=== PATIENT | female | born 1930 | race Caucasian/White ===

== ENCOUNTER 2017-12-11 21:14 | Emergency (ER) | payer MEDICARE, OTHER ==
[~2017-12-11] VITALS: Ht 165.1 cm; Wt 49.9 kg
[~2017-12-11 21:14] MED LIST: ACETAMINOPHEN325 M1 PO; ALEVE220 MG PO; AMLODIPINE BESYL5 MG PO; ANUSOL-HC25 MG PR; ASPIR 8181 MG PO; COZAAR25 MG PO; KEFLEX500 MG PO; NORCO 5-325 TA1 EACH PO; POTASSIUM CHLO20 ME1 PO; PRILOSEC20 MG PO; PROMETHAZINE-COD5 ML PO; SIMVASTATIN20 MG PO; UNKNOWN BP MED
--- NOTE | 2017-12-12 22:23 | EKG ---
[facility] [address] [facility] [place] [address] Signed Normal sinus rhythm Nonspecific ST abnormality Abnormal ECG No previous ECGs available Confirmed by MORENA REYNOSO MD ([id number]) on 12/12/2017 10:23:02 PM Electronically Signed By: MORENA REYNOSO MD 12/12/17 2223 PATIENT NAME: MARCO A PFEIFFER Electrocardiogram DATE OF : 34 PHYSICIAN: MORENA REYNOSO MD REPORT #: [id number] REPORT IS CONFIDENTIAL AND NOT TO BE RELEASED WITHOUT AUTHORIZATION
== END 2017-12-11 23:30 | disposition home or self-care (01) ==
LOC: ED 21:14
DX: I10 Essential (primary) hypertension (principal); K21.9 Gastro-esophageal reflux disease without esophagitis; Z79.899 Other long term (current) drug therapy
CPT/HCPCS: 80053; 81001; 84484; 85025; 87088; 93005; 93010; 99284

== ENCOUNTER 2019-05-05 09:18 | Emergency (ER) | payer MEDICARE, OTHER ==
[~2019-05-05] VITALS: Ht 165.1 cm; Wt 50.8 kg
--- OUTSIDE RECORDS SUMMARY | ~2019-05-05 | XMS | Clinical Summary ---
Demographics + + + | Address | [address] | | | [place] [address] | + + + | Home Phone | | + + + | Preferred Language | Unknown | + + + | Marital Status | | + + + | Christianity Affiliation | 1077 | + + + | Race | Unknown | + + + | Ethnic Group | Unknown | + + + Author + + + | Author | [facility] (Historical as of | | | 03-20-19) | + + + | Organization | [facility] (Historical as of | | | 03-20-19) | + + + | Address | Unknown | + + + | Phone | Unavailable | + + + Support + + +---------+ + | Name | Relationship | Address | Phone | + + +---------+ + | Layne Mcgarry ECON | Unknown | | + + +---------+ + Care Team Providers + +------+ + | Care Co Founder Name | Role | Phone | + +------+ + | Cuate Simons MD | PP | | + +------+ + Allergies No Known Allergies Current Medications + + +-------+---------+------+------+-------+ | Prescription | Sig. | Disp. | Refills | Star | End | Statu | | | | | | t | Date | s | | | | | | Date | | | + + +-------+---------+------+------+-------+ | omeprazole | Take 20 mg by mouth | | | | | Activ | | (PRILOSEC) 20 MG | every morning before | | | | | e | | capsule | breakfast. | | | | | | + + +-------+---------+------+------+-------+ | amLODIPine | Take 5 mg by mouth | | | | | Activ | | (NORVASC) 5 MG | daily. | | | | | e | | tablet | | | | | | | + + +-------+---------+------+------+-------+ | simvastatin | Take 20 mg by mouth | | | | | Activ | | (ZOCOR) 20 MG tablet | nightly. | | | | | e | + + +-------+---------+------+------+-------+ | aspirin 81 MG | Take 81 mg by mouth | | | | | Activ | | tablet | daily. | | | | | e | + + +-------+---------+------+------+-------+ | naproxen sodium | Take 220 mg by mouth | | | | | Activ | | (ANAPROX) 220 MG | 2 (two) times daily | | | | | e | | tablet | with meals. | | | | | | + + +-------+---------+------+------+-------+ | UNKNOWN TO PATIENT | "new med 01/13" | | | | | Activ | | | | | | | | e | + + +-------+---------+------+------+-------+ | UNKNOWN TO PATIENT | "eye drops for | | | | | Activ | | | cataracts" | | | | | e | + + +-------+---------+------+------+-------+ | lisinopril | Take 5 mg by mouth | | | | | Activ | | (ZESTRIL) 5 MG | daily. | | | | | e | | tablet | | | | | | | + + +-------+---------+------+------+-------+ | potassium chloride | Take 20 mEq by mouth | | | | | Activ | | (K-DUR) 10 MEQ | daily. | | | | | e | | tablet | | | | | | | + + +-------+---------+------+------+-------+ | cycloSPORINE | Place 1 drop into | | | | | Activ | | (RESTASIS) 0.05 % | both eyes 2 (two) | | | | | e | | ophthalmic emulsion | times daily. 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 with occasional pause seen on | 01/13/2014 | | tele strips prior to admission (in prior ER)--see paper charts | | + + + | Exercise intolerance--feels weak when she begins to exert herself | 01/13/2014 | + + + | HTN (hypertension) | | + + + | GERD (gastroesophageal reflux disease) | | + + + Family History + + +------+ + | Medical History | Relation | Name | Comments | + + +------+ + | Coronary art dis | Mother | | | + + +------+ + | Heart disease | Mother | | | + + +------+ + + +------+ + + | Relation | Name | Status | Comments | + +------+ + + | Father | | | | + +------+ + + | Mother | | | | + +------+ + + Social History + +-------+ +--------+------+ | Tobacco Use | Types | Packs/Day | Years | Date | | | | | Used | | + +-------+ +--------+------+ | Never Smoker | | | | | + +-------+ +--------+------+ + + +---------+ + | Alcohol Use | Drinks/We | oz/Week | Comments | | | ek | | | + + +---------+ + | No | | | | + + +---------+ + + + + | Sex Assigned at | Date Recorded | | | | + + + | Not on file | | + + + Last Filed Vital Signs + + + + | Vital Sign | Reading | Time Taken | + + + + | Blood Pressure | 143/66 | 01/14/2014 11:42 AM PDT | + + + + | Pulse | 60 | 01/14/2014 11:42 AM PDT | + + + + | Temperature | 36.7 C (98.1 F) | 01/14/2014 11:42 AM PDT | + + + + | Respiratory Rate | 16 | 01/14/2014 11:42 AM PDT | + + + + | Oxygen Saturation | 99% | 01/14/2014 11:42 AM PDT | + + + + | Inhaled Oxygen | - | - | | Concentration | | | + + + + | Weight | - | - | + + + + | Height | - | - | + + + + | Body Mass Index | - | - | + + + + Plan of Treatment + + + + + | Health Maintenance | Due Date | Last Done | Comments | + + + + + | Vaccine: | | | | | Dtap/Tdap/Td (1 - | 1 | | | | Tdap) | | | | + + + + + | Vaccine: Zoster (1 | | | | | of 2) | 2 | | | + + + + + | DEXA SCAN SCREENING | | | | | | 7 | | | + + + + + | Vaccine: | | | | | Pneumococcal 65+ | 7 | | | | Low/Medium Risk (1 | | | | | of 2 - PCV13) | | | | + + + + + | Vaccine: Influenza | | | | | (#1) | 9 | | | + + + + + Results Not on filefrom Last 3 Months Insurance + +--------+ +------+-------+ + | Payer | Benefi | Subscriber | Type | Phone | Address | | | t Plan | ID | | | | | | / | | | | | | | Group | | | | | + +--------+ +------+-------+ + | MEDICARE | MEDICA | [id number] | | | [address] | | | RE | | | | [place] [phone] | | | IP-OP | | | | | + +--------+ +------+-------+ + | COMMERCIAL OTHER | COMMER | [id number] | | | | | | CIAL | | | | | | | GENERI | | | | | | | C PLAN | | | | | + +--------+ +------+-------+ + + +--------+ +--------+ + + | Guarantor Name | Accoun | Relation to | Date | Phone | Billing Address | | | t Type | Patient | of | | | | | | | | | | + +--------+ +--------+ + + | CECILE HUERTA | Person | Self [birth year] | Home: | [address] | | | al/Fam | | 1930 | [phone] | | | [place] | | | [phone] | [place] | | | | | | | [phone] | + +--------+ +--------+ + +
--- OUTSIDE RECORDS SUMMARY | ~2019-05-05 | XMS | Clinical Summary ---
Demographics + + + | Address | [address] | | | [place] [address] | + + + | Home Phone [...] Author | [facility] | | | and [place] | + [...] [place] | | | | | [phone] | | + + + + + | Cyndy Mcneal | ECON | [place] | | | | | [phone] | | + + + + + Care Team Providers + +------+ + | Care Dish Network Installer Name | Role | Phone | + [...] + | Blood Pressure | 159/66 | 06/15/20151111 PST | + + + + | Pulse | 75 | 06/15/20151111 PST | + + + + | Temperature | 35.6 C (96.1 F) | 06/15/20151111 PST | + + + + | Respiratory Rate | 18 | 06/15/20151111 PST | + + + + | Oxygen Saturation | 100% | 06/15/2015 1112 PST | + + + + | Inhaled Oxygen | - | - | | Concentration | | | + + + + | Weight | 53.5 kg (117 lb 15.1 | 06/15/2015 0400 PST | | | oz) | | + + + + | Height | 165.1 cm (5' 5") | 06/14/20151645 PST | + + + + | Body Mass Index | 19.63 | 06/14/20151645 PST | + + + + Plan of [...] +--------+ +---------+--------+ | MEDICARE | MEDICA | [id number] | 04/04/19 | [phone] | | Medica | | | RE | | 97-Pre | 5 | | re | | | PART A | | sent | | | | | | AND B | | | | | | + +--------+ +--------+ +---------+--------+ | [employer] | TRANSA | [id number] | 06/02/ | | | Indemn | | INSURANCE | MERICA | | 2014-P | | | ity | | | [...] + +--------+ +--------+ + + | Lala Huetra | Person | Self | [birth year] | [address] | | | al/Fam | | 1930 | [phone] | [address] [place], | | | [place] | | | [address] (Home) | [place] [address] | + +--------+ +--------+ + + Advance Directives Patient has advance care planning documents, and code status on file. For more information, please contact:[facility] and [place] [phone] + + + + + | Code Status | Date | Date | Comments | | | Activated | Inactivated | | + + + + + | Full Code | 06/14/2015 | 06/15/2015 | | | | 16:33 | 17:33 | | + + + + +
--- OUTSIDE RECORDS SUMMARY | ~2019-05-05 | XMS | Clinical Summary ---
Demographics + + + | Address | [address] | | | [place] [address] | + + + | Home Phone | | + + + | Preferred Language | Unknown | + + + | Marital Status | | + + + | Presybeterian Affiliation | Unknown | + + + | Race | Unknown | + + + | Ethnic Group | Unknown | + + + Author + + + | Author | [facility] | | | and [place] | + + + | Organization | [facility] | | | and [place] | + [...] [place] | | | | | [phone] | | + + + + + | Cyndy Mcneal | ECON | [place] | | | | | [address] | | + + + + + Care Team Providers + +------+ + | Care Alligator Hunter Name | Role | Phone | + [...] +--------+ +---------+--------+ | MEDICARE | MEDICA | [id number] | 04/04/19 | [phone] | | Medica | | | RE | | 97-Pre | 5 | | re | | | PART A | | sent | | | | | | AND B | | | | | | + +--------+ +--------+ +---------+--------+ | [employer] | TRANSA | [id number] | 06/02/ | | | Indemn | [...] | | | 2 (Home) | [place] [address] | + +--------+ +--------+ + + Advance Directives Patient has advance care planning documents, and code status on file. For more information, please contact:[facility] and [place] [phone] + + + + + | Code Status | Date | Date | Comments | | | Activated | Inactivated | | + + + + + | Full Code | 06/14/2015 | 06/15/2015 | | | | 16:33 | 17:33 | | + + + + +
--- OUTSIDE RECORDS SUMMARY | ~2019-05-05 | XMS | Clinical Summary ---
Demographics + + + | Address | [address] | | | [place] [address] | + + + | Home Phone | | + + + | Preferred Language | Unknown | + + + | Marital Status | | + + + | Voodoo Affiliation | 1077 | + + + | Race | Unknown | + + + | Ethnic Group | Unknown | + + + Author + + + | Author | [facility] (Historical as of | | | 03-20-19) | + + + | Organization | [facility] [employer] (Historical as of | | | 03-20-19) [...] Team Providers + +------+ + | Care Director Regulatory Compliance Name | Role | Phone | + [...] +------+-------+ + | MEDICARE | MEDICA | [id number] | | | [address] | | | RE | | | | [place] [phone] | | | IP-OP | | | | | + +--------+ +------+-------+ + | COMMERCIAL OTHER | COMMER | [id number] | | | | | | CIAL [...] | | al/Fam | | 1930 | [phone] | [address] | | | [place] | | | [phone] | [place] | | | | | | | [address] | + +--------+ +--------+ + +
[~2019-05-05 09:18] MED LIST changes: +ARICEPT5 MG PO; +LIPITOR40 MG PO; +PRILOSEC10 M1 PO
[2019-05-05] MEDS ORDERED: LISINOPRIL10 MG PO (09:34)
[2019-05-05] MEDS ORDERED: PLAVIX75 MG PO (14:07)
--- NOTE | 2019-05-05 18:33 | EKG ---
[facility] [address] [facility] [place] [address] Signed Normal sinus rhythm Normal ECG When compared with ECG of 11-DEC-2017 21:35, No significant change was found Confirmed by ALISSA JAIMES MD ([id number]) on 05/05/2019 6:33:05 PM Electronically Signed By: ALISSA JAIMES MD 05/05/19 1833 PATIENT NAME: MARCO A PFEIFFER ANN Electrocardiogram DATE OF : 34 PHYSICIAN: ALISSA JAIMES MD REPORT #: [id number] REPORT IS CONFIDENTIAL AND NOT TO BE RELEASED WITHOUT AUTHORIZATION
== END 2019-05-05 14:44 | disposition home or self-care (01) ==
LOC: ED 09:18
PROC: 0T9B70Z Drainage of Bladder with Drainage Device, Via Natural or Artificial Opening (ICD-10-PCS; principal; 2019-05-05)
DX: I63.9 Cerebral infarction, unspecified (principal); I10 Essential (primary) hypertension; K21.9 Gastro-esophageal reflux disease without esophagitis; Z79.82 Long term (current) use of aspirin; Z79.899 Other long term (current) drug therapy
CPT/HCPCS: 51701; 70450; 70496; 70498; 80053; 81001; 84484; 85025; 93005; 93010; 99284-25; Q9967

== ENCOUNTER 2019-08-08 08:57 | Emergency (ER) | payer MEDICARE, OTHER ==
[~2019-08-08] VITALS: Ht 165.1 cm; Wt 50.8 kg
--- OUTSIDE RECORDS SUMMARY | ~2019-08-08 | XMS | Encounter Summary ---
Demographics + + + | Address | [address] | | | [place] [address] | + + + | Home Phone | | + + + | Preferred Language | Unknown | + + + | Marital Status | | + + + | Latter Day Affiliation | Unknown | + + + | Race | Unknown | + + + | Ethnic Group | Unknown | + + + Author + + + | Author | [facility] | | | and [place] | + + + | Organization | [facility] | | | and [place] | + + + | Address | Unknown | + + + | Phone | Unavailable | + + + Support + + + + + | Name | Relationship | Address | Phone | + + + + + | Layne Zeferino | ECON | [address] | | | | | [place] | | | | | [address] | | + + + + + | Cyndy Mcneal | ECON | [place] | | | | | [address] | | + + + + + Care Team Providers + +------+ + | Care Record Keeper Name | Role | Phone | + +------+ + | Cuate Simons MD | PCP | | + +------+ + Encounter Details +--------+ + + + + | Date | Type | Department | Care Team | Description | +--------+ + + + + | 06/21/ | Abstract | [facility] | Brett Salgado, | | | 2014 | | [facility] | Technologist | | | | | [address] | | | | | | [place] | | | | | | [address] | | | | | | [phone] | | | +--------+ + + + + Social History + +-------+ +--------+------+ | Tobacco Use | Types | Packs/Day | Years | Date | | | | | Used | | + +-------+ +--------+------+ | Never Smoker | | | | | + +-------+ +--------+------+ + + +---------+ + | Alcohol Use | Drinks/Week | oz/Week | Comments | + + +---------+ + | No | | | | + + +---------+ + + + + | Sex Assigned at | Date Recorded | | | | + + + | Not on file | | + + + + + + + | Job Start Date | Occupation | Industry | + + + + | Not on file | Not on file | Not on file | + + + + + + + + | Travel History | Travel Start | Travel End | + + + + + + | No recent travel history available. | + + documented as of this encounter Plan of Treatment Not on filedocumented as of this encounter Procedures + +--------+ + + + | Procedure Name | Priori | Date/Time | Associated Diagnosis | Comments | | | ty | | | | + +--------+ + + + | LVEF VALUE | Routin | 06/14/2015 | | Results for this | | | e | | | procedure are in the | | | | | | results section. | + +--------+ + + + documented in this encounter Results LVEF VALUE (06/14/2015) + +-------+ + + + | Component | Value | Ref Range | Performed | Pathologist | | | | | At | Signature | + +-------+ + + + | LVEF-TTE | 70 | | | | | TRANSTHORAC | | | | | | IC ECHO | | | | | + +-------+ + + + documented in this encounter Visit Diagnoses Not on filedocumented in this encounter"
--- OUTSIDE RECORDS SUMMARY | ~2019-08-08 | XMS | Encounter Summary ---
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 procedure are in the | | | | PDT | | results section. | + +--------+ + + + | CK-MB | Routin | 01/14/2014 | | Results for this | | | e | 5:49 AM | | procedure are in the | | | | PDT | | results section. | + +--------+ + + + | PHOSPHORUS | Routin | 01/14/2014 | | Results for this | | | e | 5:49 AM | | procedure are in the | | | | PDT | | results section. | + +--------+ + + + | MAGNESIUM | Routin | 01/14/2014 | | Results for this | | | e | 5:49 AM | | procedure are in the | | | | PDT | | results section. | + +--------+ + + + | HEMOGLOBIN A1C | Routin | 01/14/2014 | | Results for this | | | e | 5:49 AM | | procedure are in the | | | | PDT | | results section. | + +--------+ + + + | CK TOTAL | Routin | 01/14/2014 | | Results for this | | | e | 5:49 AM | | procedure are in the | | | | PDT | | results section. | + +--------+ + + + | BASIC METABOLIC | Routin | 01/14/2014 | | Results for this | | PANEL | e | 5:49 AM | | procedure are in the | | | | PDT | | results section. | + +--------+ + + + | ECG 12 LEAD | Routin | 01/14/2014 | | Results for this | | | e | 5:39 AM | | procedure are in the | | | | PDT | | results section. | + +--------+ + + + | TROPONIN I | Routin | 01/14/2014 | | Results for this | | | e | 12:15 AM | | procedure are in the | | | | PDT | | results section. | + +--------+ + + + | CK-MB | Routin | 01/14/2014 | | Results for this | | | e | 12:15 AM | | procedure are in the | | | | PDT | | results section. | + +--------+ + + + | CK TOTAL | Routin | 01/14/2014 | | Results for this | | | e | 12:15 AM | | procedure are in the | | | | PDT | | results section. | + +--------+ + + + | URINALYSIS, REFLEX | Routin | 01/13/2014 | | Results for this | | MICROSCOPIC AND/OR | e | 8:40 PM | | procedure are in the | | CULTURE | | PDT | | results section. | + +--------+ + + + | URINALYSIS, | Routin | 01/13/2014 | | Results for this | | MICROSCOPIC ONLY | e | 8:40 PM | | procedure are in the | | | | PDT | | results section. | + +--------+ + + + | CULTURE, URINE | Timed | 01/13/2014 | | Results for this | | | | 8:39 PM | | procedure are in the | | | | PDT | | results section. | + +--------+ + + + | ECHO COMPLETE | Routin | 01/13/2014 | | Results for this | | | e | 6:56 PM | | procedure are in the | | | | PDT | | results section. | + +--------+ + + + | TROPONIN I | Routin | 01/13/2014 | | Results for this | | | e | 6:02 PM | | procedure are in the | | | | PDT | | results section. | + +--------+ + + + | CK-MB | Routin | 01/13/2014 | | Results for this | | | e | 6:02 PM | | procedure are in the | | | | PDT | | results section. | + +--------+ + + + | CK TOTAL | Routin | 01/13/2014 | | Results for this | | | e | 6:02 PM | | procedure are in the | | | | PDT | | results section. | + +--------+ + + + | VAS CAROTID DUPLEX | Routin | 01/13/2014 | | Results for this | | BILATERAL | e | 3:12 PM | | procedure are in the | | | | PDT | | results section. | + +--------+ + + + | XR CHEST 1 VIEW | Routin | 01/13/2014 | | Results for this | | | e | 12:35 PM | | procedure are in the | | | | PDT | | results section. | + +--------+ + + + | TROPONIN I | Routin | 01/13/2014 | | Results for this | | | e | 12:15 PM | | procedure are in the | | | | PDT | | results section. | + +--------+ + + + | CK-MB | Routin | 01/13/2014 | | Results for this | | | e | 12:15 PM | | procedure are in the | | | | PDT | | results section. | + +--------+ + + + | CK TOTAL | Routin | 01/13/2014 | | Results for this | | | e | 12:15 PM | | procedure are in the | | | | PDT | | results section. | + +--------+ + + + | EXTERNAL LAB: CBC | Routin | 01/13/2014 | | Results for this | | | e | 10:34 AM | | procedure are in the | | | | PDT | | results section. | + +--------+ + + + | TROPONIN I | Routin | 01/13/2014 | | Results for this | | | e | 10:34 AM | | procedure are in the | | | | PDT | | results section. | + +--------+ + + + | CK-MB | Routin | 01/13/2014 | | Results for this | | | e | 10:34 AM | | procedure are in the | | | | PDT | | results section. | + +--------+ + + + | TSH | Routin | 01/13/2014 | | Results for this | | | e | 10:34 AM | | procedure are in the | | | | PDT | | results section. | + +--------+ + + + | T4, FREE | Routin | 01/13/2014 | | Results for this | | | e | 10:34 AM | | procedure are in the | | | | PDT | | results section. | + +--------+ + + + | PHOSPHORUS | Routin | 01/13/2014 | | Results for this | | | e | 10:34 AM | | procedure are in the | | | | PDT | | results section. | + +--------+ + + + | B TYPE NATRIURETIC | Routin | 01/13/2014 | | Results for this | | PEPTIDE | e | 10:34 AM | | procedure are in the | | | | PDT | | results section. | + +--------+ + + + | MAGNESIUM | Routin | 01/13/2014 | | Results for this | | | e | 10:34 AM | | procedure are in the | | | | PDT | | results section. | + +--------+ + + + | CK TOTAL | Routin | 01/13/2014 | | Results for this | | | e | 10:34 AM | | procedure are in the | | | | PDT | | results section. | + +--------+ + + + | BASIC METABOLIC | Routin | 01/13/2014 | | Results for this | | PANEL | e | 10:34 AM | | procedure are in the | | | | PDT | | results section. | + +--------+ + + + | ECG 12 LEAD | Routin | 01/13/2014 | | Results for this | | | e | 9:27 AM | | procedure are in the | | | | PDT | | results section. | + +--------+ + + + documented in this encounter Results CK-MB (01/14/2014 5:49 AM PDT) + + + + + -+ | Component | Value | Ref Range | Performed | Pathologist | | | | | At | Signature | + + + + + -+ | CK-MB | 0.5Comment: Testing | 0.5 - 3.6 ng/mL | EXTERNAL | | | | performed at [facility];[address] | | LAB | | | | [address];[place], [place] | | | | | | [address] | | | | + + + + + -+ | CK-MB Index | 1.0Comment: CK INDEX | | EXTERNAL | | | | INTERPRETATION: | | LAB | | | | MMB ng/mL | | | | | | | | | | | |CK INDEX INTERPRETATION: | | | | | | MMB ng/mL | | | | | | | | | | + + + + + -+ + + | Specimen | + + | | + + + +---------+ + + | Performing | Address | City/State/Zipcode | Phone Number | | Organization | | | | + +---------+ + + | EXTERNAL LAB | | | | + +---------+ + + Troponin I (01/14/2014 5:49 AM PDT) + + + + + + | Component | Value | Ref Range | Performed | Pathologist | | | | | At | Signature | + + + + + + | Troponin I, | <0.02Comment: 0.00 to | 0.00 - 0.10 | EXTERNAL | | | Qual | 0.10 CONSISTENT WITH | ng/mL | LAB | | | | NORMAL POPULATION0.11 to | | | | | | 0.60 CONSISTENT WITH | | | | | | INCREASED RISK FOR | | | | | | ADVERSE OUTCOMES> 0.60 | | | | | | CONSISTENT | | | | | | WITH WHO CRITERIA FOR | | | | | | ACUTE RI Testing | | | | | | performed at [facility] | | | | | | [address] [facility];[place], [place] | | | | | | [address] | | | | + + + + + + + + | Specimen | + + | Blood specimen | | (specimen) | + + + +---------+ + + | Performing | Address | City/State/Zipcode | Phone Number | | Organization | | | | + +---------+ + + | EXTERNAL LAB | | | | + +---------+ + + External Lab: CBC (01/14/2014 5:49 AM PDT) + + + + + + | Component | Value | Ref Range | Performed | Pathologist | | | | | At | Signature | + + + + + + | WBC | 5.6Comment: Testing | 3.8 - 11.0 K/uL | EXTERNAL | | | | performed at [facility], [address] | | LAB | | | | [address], | | | | | | [place] [address] | | | | + + + + + + | RED CELL | 3.70Comment: Testing | 3.70 - 5.10 | EXTERNAL | | | COUNT | performed at [facility], [address] | M/uL | LAB | | | | [address], | | | | | | [place] [address] | | | | + + + + + + | Hgb | 11.3Comment: Testing | 11.3 - 15.5 | EXTERNAL | | | | performed at [facility], [address] | g/dL | LAB | | | | [address], | | | | | | [place] [address] | | | | + + + + + + | Hematocrit, | 33.3 (L)Comment: Testing | 34.0 - 46.0 % | EXTERNAL | | | POC | performed at [facility], [address] | | LAB | | | | [address], | | | | | | [place] [address] | | | | + + + + + + | MCV | 89.8Comment: Testing | 80.0 - 100.0 fl | EXTERNAL | | | | performed at [facility], [address] | | LAB | | | | [address], | | | | | | [place] [address] | | | | + + + + + + | MCH | 30.6Comment: Testing | 27.0 - 34.0 pg | EXTERNAL | | | | performed at [facility], [address] | | LAB | | | | [address], | | | | | | [place] [address] | | | | + + + + + + | MCHC | 34.1Comment: Testing | 32.0 - 35.5 | EXTERNAL | | | | performed at [facility], [address] | g/dL | LAB | | | | [address], | | | | | | [place] [address] | | | | + + + + + + | RDW-CV | 42.4Comment: Testing | 37 - 53 fl | EXTERNAL | | | | performed at [facility], [address] | | LAB | | | | [address], | | | | | | [place] [address] | | | | + + + + + + | Platelet | 173Comment: Testing | 150 - 400 K/uL | EXTERNAL | | | Count | performed at [facility], [address] | | LAB | | | Plasma | [address], | | | | | | [place] [address] | | | | + + + + + + | MPV | 8.6Comment: Testing | fl | EXTERNAL | | | | performed at [facility], [address] | | LAB | | | | [address], | | | | | | [place] [address] | | | | + + + + + + | Differentia | AUTOMATEDComment: | | EXTERNAL | | | l Type | Testing performed at | | LAB | | | | [facility], [address] | | | | | | [place] | | | | | | [address] | | | | + + + + + + | % Segmented | 41.0Comment: Testing | % | EXTERNAL | | | | performed at [facility], [address] | | LAB | | | Neutrophils | [address], | | | | | | [place] [address] | | | | + + + + + + | % | 47.9Comment: Testing | % | EXTERNAL | | | Lymphocytes | performed at [facility], [address] | | LAB | | | | [address], | | | | | | [place] [address] | | | | + + + + + + | % Monocytes | 8.2Comment: Testing | % | EXTERNAL | | | | performed at [facility], [address] | | LAB | | | | [address], | | | | | | [place] [address] | | | | + + + + + + | % | 2.1Comment: Testing | % | EXTERNAL | | | Eosinophils | performed at [facility], [address] | | LAB | | | | [address], | | | | | | [place] [address] | | | | + + + + + + | % Basophils | 0.8Comment: Testing | % | EXTERNAL | | | | performed at [facility], [address] | | LAB | | | | [address], | | | | | | [place] [address] | | | | + + + + + + | Absolute | 2.3Comment: Testing | 1.9 - 7.4 K/uL | EXTERNAL | | | Segmented | performed at [facility], [address] | | LAB | | | Neutrophils | [address], | | | | | | [place] [address] | | | | + + + + + + | Absolute | 2.7Comment: Testing | 1.0 - 3.9 K/uL | EXTERNAL | | | Lymphocytes | performed at [facility], [address] | | LAB | | | | [address], | | | | | | [place] [address] | | | | + + + + + + | Absolute | 0.5Comment: Testing | 0 - 0.8 K/uL | EXTERNAL | | | Monocytes | performed at [facility], [address] | | LAB | | | | [address], | | | | | | [place] [address] | | | | + + + + + + | Absolute | 0.1Comment: Testing | 0 - 0.5 K/uL | EXTERNAL | | | Eosinophils | performed at [facility], [address] | | LAB | | | | [address], | | | | | | [place] [address] | | | | + + + + + + | Absolute | 0.0Comment: Testing | 0 - 0.1 K/uL | EXTERNAL | | | Basophils | performed at [facility], [address] | | LAB | | | | [address], | | | | | | [place] [address] | | | | + + + + + + + + | Specimen | + + | | + + + +---------+ + + | Performing | Address | City/State/Zipcode | Phone Number | | Organization | | | | + +---------+ + + | EXTERNAL LAB | | | | + +---------+ + + Phosphorus (01/14/2014 5:49 AM PDT) + + + + + + | Component | Value | Ref Range | Performed | Pathologist | | | | | At | Signature | + + + + + + | PHOSPHORUS | 3.7Comment: Testing | 2.3 - 4.8 mg/dL | EXTERNAL | | | | performed at [facility], [address] | | LAB | | | | [address], | | | | | | [place] [address] | | | | + + + + + + + + | Specimen | + + | | + + + +---------+ + + | Performing | Address | City/State/Zipcode | Phone Number | | Organization | | | | + +---------+ + + | EXTERNAL LAB | | | | + +---------+ + + Magnesium (01/14/2014 5:49 AM PDT) + + + + + + | Component | Value | Ref Range | Performed | Pathologist | | | | | At | Signature | + + + + + + | Magnesium | 2.2Comment: Testing | 1.7 - 2.4 mg/dL | EXTERNAL | | | | performed at [facility], [address] | | LAB | | | | [address], | | | | | | [place] [address] | | | | + + + + + + + + | Specimen | + + | | + + + +---------+ + + | Performing | Address | City/State/Zipcode | Phone Number | | Organization | | | | + +---------+ + + | EXTERNAL LAB | | | | + +---------+ + + Hemoglobin A1C (01/14/2014 5:49 AM PDT) + + + + + + | Component | Value | Ref Range | Performed | Pathologist | | | | | At | Signature | + + + + + + | Hemoglobin | 5.2Comment: The [place] | 4.0 - 6.0 % | EXTERNAL | | | A1c | Diabetes Association | | LAB | | | | considers a hemoglobin | | | | | | A1c result of <7.0% to | | | | | | be the goal of diabetic | | | | | | therapy. When results | | | | | | are consistently >8.0%, | | | | | | the ADA suggests | | | | | | reevaluation of the | | | | | | treatment regimen. The | | | | | | testing method used is | | | | | | certified traceable to | | | | | | the Diabetes Control and | | | | | | Complications Trial | | | | | | reference method.Testing | | | | | | performed at [facility], [address] | | | [address] | [address] [facility], | | | | | | [place] [address] | | | | + + + + + + | Glycohemogl | 103Comment: The ADA | mg/dL | EXTERNAL | | | obin | considers an eAG result | | LAB | | | (GHb),Total | of LT 154 mg/dL to be | | | | | | the goal of diabetic | | | | | | therapy. Estimated | | | | | | Average Glucose | | | | | | calculated from | | | | | | hemoglobin A1c by use of | | | | | | the ADA recommended | | | | | | formula.Testing | | | | | | performed at [facility], [address] | | | | | | [facility], | | | | | | [place] [address] | | | | + + + + + + + + | Specimen | + + | | + + + +---------+ + + | Performing | Address | City/State/Zipcode | Phone Number | | Organization | | | | + +---------+ + + | EXTERNAL LAB | | | | + +---------+ + + CK Total (01/14/2014 5:49 AM PDT) + + + + + + | Component | Value | Ref Range | Performed | Pathologist | | | | | At | Signature | + + + + + + | CK, Total | 51Comment: Testing | 30 - 240 U/L | EXTERNAL | | | | performed at [facility];[address] | | LAB | | | | [address];[place] | | | | | | [address] | | | | + + + + + + + + | Specimen | + + | Blood specimen | | (specimen) | + + + +---------+ + + | Performing | Address | City/State/Zipcode | Phone Number | | Organization | | | | + +---------+ + + | EXTERNAL LAB | | | | + +---------+ + + Lipid Panel (01/14/2014 5:49 AM PDT) + + + + + + | Component | Value | Ref Range | Performed | Pathologist | | | | | At | Signature | + + + + + + | Cholesterol | 120Comment: Testing | mg/dL | EXTERNAL | | | | performed at [facility], [address] | | LAB | | | | [address], | | | | | | [place] [address] | | | | + + + + + + | Triglycerid | 98Comment: Testing | mg/dL | EXTERNAL | | | es | performed at [facility], [address] | | LAB | | | | [address], | | | | | | [place] [address] | | | | + + + + + + | HDL | 46Comment: Testing | mg/dL | EXTERNAL | | | | performed at [facility], [address] | | LAB | | | | [address], | | | | | | [place] [address] | | | | + + + + + + | LDL | 54Comment: Testing | mg/dL | EXTERNAL | | | Cholesterol | performed at [facility], [address] | | LAB | | | , | [address], | | | | | Calculated, | [place] [address] | | | | | External | | | | | + + + + + + + + | Specimen | + + | | + + + +---------+ + + | Performing | Address | City/State/Zipcode | Phone Number | | Organization | | | | + +---------+ + + | EXTERNAL LAB | | | | + +---------+ + + Basic Metabolic Panel (01/14/2014 5:49 AM PDT) + + + + + + | Component | Value | Ref Range | Performed | Pathologist | | | | | At | Signature | + + + + + + | Na | 141Comment: Testing | 135 - 143 | EXTERNAL | | | | performed at [facility], [address] | mmol/L | LAB | | | | [address], | | | | | | [place] [address] | | | | + + + + + + | K | 3.8Comment: Testing | 3.5 - 4.9 | EXTERNAL | | | | performed at [facility], [address] | mmol/L | LAB | | | | [address], | | | | | | [place] [address] | | | | + + + + + + | Cl | 112 (H)Comment: Testing | 99 - 109 mmol/L | EXTERNAL | | | | performed at [facility], [address] | | LAB | | | | [address], | | | | | | [place] [address] | | | | + + + + + + | CO2 | 25Comment: Testing | 23 - 32 mmol/L | EXTERNAL | | | | performed at [facility], [address] | | LAB | | | | [address], | | | | | | [place] [address] | | | | + + + + + + | Anion Gap | 8Comment: Testing | 5 - 20 mmol/L | EXTERNAL | | | | performed at [facility], [address] | | LAB | | | | [address], | | | | | | [place] [address] | | | | + + + + + + | Glucose, | 90Comment: Testing | 65 - 99 mg/dL | EXTERNAL | | | Fasting | performed at [facility], [address] | | LAB | | | | [address], | | | | | | [place] [address] | | | | + + + + + + | BUN | 19Comment: Testing | 8 - 25 mg/dL | EXTERNAL | | | | performed at [facility], [address] | | LAB | | | | [address], | | | | | | [place] [address] | | | | + + + + + + | Creatinine | 1.00Comment: Testing | 0.50 - 1.00 | EXTERNAL | | | | performed at [facility], [address] | mg/dL | LAB | | | | [address], | | | | | | [place] [address] | | | | + + + + + + | BUN/Creatin | 19Comment: Testing | | EXTERNAL | | | ine Ratio | performed at [facility], [address] | | LAB | | | | [address], | | | | | | [place] [address] | | | | + + + + + + | Calcium | 8.4 (L)Comment: Testing | 8.5 - 10.2 | EXTERNAL | | | | performed at [facility], [address] | mg/dL | LAB | | | | [address], | | | | | | [place] [address] | | | | + + + + + + | Estimated | 57 (L)Comment: GFR <60: | mL/min/1.73m2 | EXTERNAL | | | GFR | CHRONIC KIDNEY DISEASE, | | LAB | | | | IF FOUND OVER A 3 MONTH | | | | | | PERIOD.GFR <15: KIDNEY | | | | | | FAILURE.FOR | | | | | | AMERICANS, MULTIPLY THE | | | | | | CALCULATED GFR BY | | | | | | 1.210.Testing performed | | | | | | at [facility], [address] | | | | | | [address], | | | | | | [place] [address] | | | | + + + + + + + + | Specimen | + + | | + + + +---------+ + + | Performing | Address | City/State/Zipcode | Phone Number | | Organization | | | | + +---------+ + + | EXTERNAL LAB | | | | + +---------+ + + ECG 12 lead (01/14/2014 5:39 AM PDT) + + + + + + | Component | Value | Ref Range | Performed | Pathologist | | | | | At | Signature | + + + + + + | DIAGNOSIS: | Sinus | | EXTERNAL | | | | bradycardiaOtherwise | | LAB | | | | normal ECGWhen compared | | | | | | with ECG of 13-JAN-2014 | | | | | | 09:27,No significant | | | | | | change was | | | | | | foundConfirmed by | | | | | | YAQUELIN SANCHEZ ([id number]) on | | | | | | 01/14/2014 10:46:38 PM | | | | + + + + + + + + | Specimen | + + | | + + + + + | Narrative | Performed At | + + + | Historically converted procedure from [facility] environment | EXTERNAL LAB | + + + + +---------+ + + | Performing | Address | City/State/Zipcode | Phone Number | | Organization | | | | + +---------+ + + | EXTERNAL LAB | | | | + +---------+ + + CK-MB (01/14/2014 12:15 AM PDT) + + + + + -+ | Component | Value | Ref Range | Performed | Pathologist | | | | | At | Signature | + + + + + -+ | CK-MB | 0.5Comment: Testing | 0.5 - 3.6 ng/mL | EXTERNAL | | | | performed at [facility];[address] | | LAB | | | | [address];[place] | | | | | | [address] | | | | + + + + + -+ | CK-MB Index | 1.0Comment: CK INDEX | | EXTERNAL | | | | INTERPRETATION: | | LAB | | | | MMB ng/mL | | | | | | | | | | | |CK INDEX INTERPRETATION: | | | | | | MMB ng/mL | | | | | | | | | | + + + + + -+ + + | Specimen | + + | | + + + +---------+ + + | Performing | Address | City/State/Zipcode | Phone Number | | Organization | | | | + +---------+ + + | EXTERNAL LAB | | | | + +---------+ + + Troponin I (01/14/2014 12:15 AM PDT) + + + + + + | Component | Value | Ref Range | Performed | Pathologist | | | | | At | Signature | + + + + + + | Troponin I, | <0.020Comment: 0.00 to | 0.00 - 0.10 | EXTERNAL | | | Qual | 0.10 CONSISTENT WITH | ng/mL | LAB | | | | NORMAL POPULATION0.11 | | | | | | to 0.60 CONSISTENT | | | | | | WITH INCREASED RISK FOR | | | | | | ADVERSE OUTCOMES> 0.60 | | | | | | CONSISTENT | | | | | | WITH WHO CRITERIA FOR | | | | | | ACUTE [place] Testing | | | | | | performed at [facility];[address] | | | | | | [facility];[place], [place] | | | | | | [address] | | | | + + + + + + + + | Specimen | + + | Blood specimen | | (specimen) | + + + +---------+ + + | Performing | Address | City/State/Zipcode | Phone Number | | Organization | | | | + +---------+ + + | EXTERNAL LAB | | | | + +---------+ + + CK Total (01/14/2014 12:15 AM PDT) + + + + + + | Component | Value | Ref Range | Performed | Pathologist | | | | | At | Signature | + + + + + + | CK, Total | 48Comment: Testing | 30 - 240 U/L | EXTERNAL | | | | performed at [facility];[address] | | LAB | | | [address];[place], [place] | | | | | | [address] | | | | + + + + + + + + | Specimen | + + | Blood specimen | | (specimen) | + + + +---------+ + + | Performing | Address | City/State/Zipcode | Phone Number | | Organization | | | | + +---------+ + + | EXTERNAL LAB | | | | + +---------+ + + Urinalysis, Reflex Microscopic and/or Culture (01/13/2014 8:40 PM PDT) + + + + + + | Component | Value | Ref Range | Performed | Pathologist | | | | | At | Signature | + + + + + + | Color | YELLOWComment: Testing | | EXTERNAL | | | | performed at [facility];[address] | | LAB | | | | [address];[place] | | | | | | [address] | | | | + + + + + + | Clarity | CLEARComment: Testing | | EXTERNAL | | | | performed at [facility];[address] | | LAB | | | [address];[place] | | | | | | [address] | | | | + + + + + + | Specific | 1.020Comment: Testing | 1.001 - 1.035 | EXTERNAL | | | [place] | performed at [facility];[address] | | LAB | | | [address];[place] | | | | | | [address] | | | | + + + + + + | Leukocyte | TRACE (A)Comment: | | EXTERNAL | | | Esterase, | Testing performed at | | LAB | | | Urine | [facility];[address];[place] [address] | | | | + + + + + + | Nitrite, | NEGATIVEComment: Testing | | EXTERNAL | | | Urine | performed at [facility];[address] | | LAB | | | [address];[place] | | | | | | [address] | | | | + + + + + + | Urobilinoge | 0.2Comment: Testing | mg/dL | EXTERNAL | | | n, Urine | performed at [facility];[address] | [address] | | | [address];[place] | | | | | | [address] | | | | + + + + + + | Protein, | NEGATIVEComment: Testing | mg/dL | EXTERNAL | | | Urine | performed at [facility];[address] | | [address] | | | [address];[place] | | | | | | [address] | | | | + + + + + + | pH, Urine | 6.5Comment: Testing | 4.6 - 8.0 | EXTERNAL | | | | performed at [facility];[address] | [address] | | | [address];[place] | | | | | | [address] | | | | + + + + + + | Blood, | NEGATIVEComment: Testing | | EXTERNAL | | | Urine | performed at [facility];[address] | [address] | | | [address];[place] | | | | | | [address] | | | | + + + + + + | Ketones | NEGATIVEComment: Testing | mg/dL | EXTERNAL | | | | performed at [facility];[address] | | [address] | | | [address];[place] | | | | | | [address] | | | | + + + + + + | Bilirubin, | NEGATIVEComment: Testing | | EXTERNAL | | | Urine | performed at [facility];[address] | | [address] | | | [address];[place] | | | | | | [address] | | | | + + + + + + | Glucose, | NEGATIVEComment: Testing | mg/dL | EXTERNAL | | | Urine | performed at [facility];[address] | [address] | | | [address];[place] | | | | | | [address] | | | | + + + + + + + + | Specimen | + + | Urine specimen | | (specimen) | + + + +---------+ + + | Performing | Address | City/State/Zipcode | Phone Number | | Organization | | | | + +---------+ + + | EXTERNAL LAB | | | | + +---------+ + + Urinalysis, Microscopic Only (01/13/2014 8:40 PM PDT) + + + + + + | Component | Value | Ref Range | Performed | Pathologist | | | | | At | Signature | + + + + + + | WBC, UA | 1-5Comment: Testing | 0 - 5 /hpf | EXTERNAL | | | | performed at [facility];[address] | | [address] | | | [address];[place] | | | | | | [address] | | | | + + + + + + | RBC, UA | NONE SEENComment: | 0 - 5 /hpf | EXTERNAL | | | | Testing performed at | | LAB | | | | [facility];[address];[place] [address] | | | | + + + + + + | Epithelial | NONE SEENComment: | /lpf | EXTERNAL | | | Cells | Testing performed at | | LAB | | | | [facility];[address];[place] [address] | | | | + + + + + + | Bacteria, | NONE SEENComment: | | EXTERNAL | | | UA | Testing performed at | | LAB | | | | [facility];[address];[place] [address] | | | | + + + + + + | MUCUS UA | 1+Comment: Testing | | EXTERNAL | | | | performed at [facility];[address] | [address] | | | [address];[place] | | | | | | [address] | | | | + + + + + + + + | Specimen | + + | | + + + +---------+ + + | Performing | Address | City/State/Zipcode | Phone Number | | Organization | | | | + +---------+ + + | EXTERNAL LAB | | | | + +---------+ + + Culture, Urine (01/13/2014 8:39 PM PDT) + + | Specimen | + + | Urine specimen | | (specimen) | + + + + + | Narrative | Performed At | + + + | Specimen Description CLEAN CATCH URINE CULTURE | EXTERNAL LAB | | NO GROWTH REPORT STATUS | | | FINAL | | | 01/14/2014 | | + + + + +---------+ + + | Performing | Address | City/State/Zipcode | Phone Number | | Organization | | | | + +---------+ + + | EXTERNAL LAB | | | | + +---------+ + + ECHO Complete (01/13/2014 6:56 PM PDT) + + | Specimen | + + | | + + + + + | Impressions | Performed At | + + + | 1. Overall left ventricular systolic function is normal with, an EF | | | between 65 - 70 %. 2. There is uzzy-dg-dcgczlxv aortic regurgitation. | | | 3. Moderate tricuspid regurgitation present. 4. The right | | | ventricular systolic pressure (pulmonary artery systolic pressure), as | | | measured by Doppler, is between 32.79mmHg and 37.79mmHg. | | + + + + + + | Narrative | Performed At | + + + | Patient Name: CECILE HUERTA Date of : 1930 | | | Performing Physician: Yaquelin Sanchez MD | | | | | | INDICATIONS Abnormal EKG - Dizziness, possiblepauses, | | | lightheadedness CONCLUSIONS 1. Overall left | | | ventricular systolic function is normal with, an EF between 65 - 70 %. | | | 2. There is butp-wn-xujftspa aortic regurgitation. 3. Moderate | | | tricuspid regurgitation present. 4. The right ventricular systolic | | | pressure (pulmonary artery systolic pressure), as measured by Doppler, | | | is between 32.79mmHg and 37.79mmHg. FINDINGS -------- ECG | | | rhythm: Sinus rhythm. Study: A 2-dimensional transthoracic | | | echocardiogram with m-mode, spectral and color flow Doppler was | | | perfomed. Study: This was a technically adequate study. Left | | | Ventricle: Overall left ventricular systolic function is normal with, | | | an EF between 65 - 70 %. Left Ventricle: The left ventricle cavity | | | size is normal. Left Ventricle: Left ventricular wall thickness is | | | normal. Right Ventricle: The right ventricle is normal in size and | | | function. Left Atrium: The left atrium is normal in size. Right | | | Atrium: The right atrium is normal in size. Aortic Valve: There is | | | mild aortic valve sclerosis without stenosis. Aortic Valve: There is | | | atro-ny-ybrgxste aortic regurgitation. 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 Mitral Valve: Mild mitral | | | annular calcification present. Tricuspid Valve: The tricuspid valve | | | appears structurally normal. Tricuspid Valve: Moderate tricuspid | | | regurgitation present. Tricuspid Valve: The right ventricular | | | systolic pressure (pulmonary artery systolic pressure), as measured by | | | Doppler, is between 32.79mmHg and 37.79mmHg. Pulmonic Valve: | | | Pulmonic valve appears structurally normal. Pulmonic Valve: Trace | | | pulmonic regurgitation. Pericardium: There is no pericardial | | | effusion. IVC/Hepatic Veins: The IVC is normal size (1.5-2.5cm) and | | | collapses <50% with sniff, consistent with central venous pressures of | | | 10-15mmHg. Mass: No mass visualized Thrombus: No clot visualized | | | Thrombus: No vegetation visualized. MEASUREMENTS | | | LA Major: 3.68 cm EDV(Teich): 49.49 ml IVSd: 1.01 cm | | | LVIDd: 3.46 cm LVPWd: 1.03 cm LVOT Diam: 1.67 cm %FS: | | | 39.49 % EF(Teich): 71.11 % ESV(Teich): 14.29 ml IVSs: 1.22 | | | cm LVIDs: 2.09 cm LVPWs: 1.58 cm SV(Teich): 35.20 ml RA | | | Major: 4.92 cm RVIDd: 2.82 cm LVEF MOD A2C: 67.24 % SV MOD | | | A2C: 26.34 ml LVEF MOD A4C: 66.30 % SV MOD A4C: 34.87 ml | | | EF Biplane: 67.14 % LVEDV MOD BP: 45.51 ml LVESV MOD BP: | | | 14.95 ml LVEDV MOD A2C: 39.16 ml LVLd A2C: 6.19 cm LVEDV MOD | | | A4C: 52.59 ml LVLd A4C: 6.02 cm LVESV MOD A2C: 12.82 ml | | | LVLs A2C: 4.52 cm LVESV MOD A4C: 17.72 ml LVLs A4C: 4.52 cm | | | LAAd A4C: 12.60 cm2 LAEDV A-L A4C: 35.26 ml LAEDV MOD A4C: | | | 31.49 ml LALd A4C: 3.82 cm Ao Diam: 2.71 cm AV Cusp: | | | 1.42 cm LA Diam: 3.26 cm LA/Ao: 1.20 %FS: 43.75 % | | | EDV(Teich): 54.77 ml EF(Teich): 75.85 % ESV(Teich): 13.22 | | | ml IVSd: 1.01 cm IVSs: 1.32 cm LVIDd: 3.60 cm LVIDs: | | | 2.03 cm LVPWd: 0.95 cm LVPWs: 1.52 cm SV(Teich): 41.55 ml | | | D-E Excursion: 1.32 cm E-F [place]: 0.03 m/s TAPSE: 2.54 cm | | | IVC diameter: 2.08 cm IVC collapse: 1.17 cm IVC % collapse: | | | 41.66 % AR Dec [place]: 1.67 m/s2 AR Dec Time: 2312.76 ms AR | | | maxP.80 mmHg AR PHT: 670.70 ms AR Vmax: 3.86 m/s HR: | | | 58.77 BPM AV maxP.20 mmHg AV meanP.74 mmHg AV | | | Vmax: 1.34 m/s AV Vmean: 0.92 m/s AV VTI: 32.08 cm JV | | | Vmax: 1.68 cm2 JV (VTI): 1.52 cm2 LVCI Dopp: 1.67 l/minm2 | | | LVCO Dopp: 2.71 l/min HR: 55.57 BPM LVOT maxP.23 mmHg | | | LVOT meanP.92 mmHg LVSI Dopp: 30.19 ml/m2 LVSV Dopp: | | | 48.90 ml LVOT Vmax: 1.02 m/s LVOT Vmean: 0.64 m/s LVOT VTI: | | | 22.22 cm MR maxP.45 mmHg MR Vmax: 2.66 m/s MV A Andrew: | | | 0.75 m/s MV DecT: 170.47 ms MV E Andrew: 0.70 m/s MV E/A | | | Ratio: 0.93 MV PHT: 54.23 ms MVA By PHT: 4.05 cm2 MV A | | | Dur: 128.02 ms Septal e': 0.08 m/s Septal E/e': 8.07 | | | Lateral e': 0.08 m/s Lateral E/e': 7.95 P Vein A: 0.24 m/s | | | P Vein A Dur: 107.26 ms P Vein D: 0.31 m/s P Vein S/D Ratio: | | | 1.46 P Vein S: 0.46 m/s HR: 57.03 BPM PV maxP.15 | | | mmHg PV meanP.62 mmHg PV Vmax: 0.53 m/s PV Vmean: 0.37 | | | m/s PV VTI: 14.34 cm RAP: 15 mmHg RVSP: 37.79 mmHg TR | | | maxP.79 mmHg TR Vmax: 2.37 m/s TV A Andrew: 0.22 m/s TV | | | Dec [place]: 1.69 m/s2 TV Dec Time: 356.97 ms TV E Andrew: 0.60 | | | m/s TV E/A Ratio: 2.[address] Magistrate: Authenticated by: Yaquelin | | | Laura CROSS Report Date/Time: 01-13-2014 19:17:49 | | + + + + + | Procedure Note | + + | Og James Conversion - 03/19/2019 3:49 PM PDT Patient Name: Remington HUERTA of | | : 1930 Performing Physician: Yaquelin Sanchez | | MD INDICATIONS A | | bnormal EKG - Dizziness, possiblepauses, lightheadedness CONCLUSIONS 1. | | Overall left ventricular systolic function is normal with, an EF between 65 - 70 %.2. | | There is nyft-ww-rtrcgqtx aortic regurgitation.3. Moderate tricuspid regurgitation | | present.4. The right ventricular systolic pressure (pulmonary artery systolic pressure), | | as measured by Doppler, is between 32.79mmHg and 37.79mmHg. FINDINGS--------ECG rhythm: | | Sinus rhythm.Study: A 2-dimensional transthoracic echocardiogram with m-mode, spectral | | and color flow Doppler was perfomed.Study: This was a technically adequate study.Left | | Ventricle: Overall left ventricular systolic function is normal with, an EF between 65 - | | 70 %.Left Ventricle: The left ventricle cavity size is normal.Left Ventricle: Left | | ventricular wall thickness is normal.Right Ventricle: The right ventricle is normal in | | size and function.Left Atrium: The left atrium is normal in size.Right Atrium: The right | | atrium is normal in size.Aortic Valve: There is mild aortic valve sclerosis without | | stenosis.Aortic Valve: There is kztb-oy-jfspjgtf aortic regurgitation.Mitral Valve: | | 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.Mitral Valve: Mild mitral annular | | calcification present.Tricuspid Valve: The tricuspid valve appears structurally | | normal.Tricuspid Valve: Moderate tricuspid regurgitation present.Tricuspid Valve: The | | right ventricular systolic pressure (pulmonary artery systolic pressure), as measured by | | Doppler, is between 32.79mmHg and 37.79mmHg.Pulmonic Valve: Pulmonic valve appears | | structurally normal.Pulmonic Valve: Trace pulmonic regurgitation.Pericardium: There is | | no pericardial effusion.IVC/Hepatic Veins: The IVC is normal size (1.5-2.5cm) and | | collapses <50% with sniff, consistent with central venous pressures of 10-15mmHg.Mass: | | No mass visualizedThrombus: No clot visualizedThrombus: No vegetation visualized. | | MEASUREMENTS LA Major: 3.68 cmEDV(Teich): 49.49 mlIVSd: 1.01 cmLVIDd: | | 3.46 cmLVPWd: 1.03 cmLVOT Diam: 1.67 cm%FS: 39.49 %EF(Teich): 71.11 | | %ESV(Teich): 14.29 mlIVSs: 1.22 cmLVIDs: 2.09 cmLVPWs: 1.58 cmSV(Teich): 35.20 | | mlRA Major: 4.92 cmRVIDd: 2.82 cmLVEF MOD A2C: 67.24 %SV MOD A2C: 26.34 mlLVEF | | MOD A4C: 66.30 %SV MOD A4C: 34.87 mlEF Biplane: 67.14 %LVEDV MOD BP: 45.51 | | mlLVESV MOD BP: 14.95 mlLVEDV MOD A2C: 39.16 mlLVLd A2C: 6.19 cmLVEDV MOD A4C: | | 52.59 mlLVLd A4C: 6.02 cmLVESV MOD A2C: 12.82 mlLVLs A2C: 4.52 cmLVESV MOD A4C: | | 17.72 mlLVLs A4C: 4.52 cmLAAd A4C: 12.60 [id number] A-L A4C: 35.26 mlLAEDV MOD A4C: | | 31.49 mlLALd A4C: 3.82 cmAo Diam: 2.71 cmAV Cusp: 1.42 cmLA Diam: 3.26 | | cmLA/Ao: 1.20%FS: 43.75 %EDV(Teich): 54.77 mlEF(Teich): 75.85 %ESV(Teich): | | 13.22 mlIVSd: 1.01 cmIVSs: 1.32 cmLVIDd: 3.60 cmLVIDs: 2.03 cmLVPWd: 0.95 | | cmLVPWs: 1.52 cmSV(Teich): 41.55 mlD-E Excursion: 1.32 cmE-F [place]: 0.03 | | m/sTAPSE: 2.54 cmIVC diameter: 2.08 cmIVC collapse: 1.17 cmIVC % collapse: 41.66 | | %AR Dec [place]: 1.67 m/s2AR Dec Time: 2312.76 msAR maxP.80 mmHgAR PHT: | | 670.70 msAR Vmax: 3.86 m/sHR: 58.77 BPMAV maxP.20 mmHgAV meanP.74 mmHgAV | | Vmax: 1.34 m/Ronak Vmean: 0.92 m/Ronak VTI: 32.08 cmAVA Vmax: 1.68 cm2AVA (VTI): | | 1.52 [id number] Dopp: 1.67 l/[id number] Dopp: 2.71 l/minHR: 55.57 BPMLVOT maxPG: | | 4.23 mmHgLVOT meanP.92 mmHgLVSI Dopp: 30.19 ml/m2LVSV Dopp: 48.90 mlLVOT Vmax: | | 1.02 m/sLVOT Vmean: 0.64 m/sLVOT VTI: 22.22 cmMR maxP.45 mmHgMR Vmax: | | 2.66 m/sMV A Andrew: 0.75 m/sMV DecT: 170.47 msMV E Andrew: 0.70 m/sMV E/A Ratio: | | 0.93MV PHT: 54.23 msMVA By PHT: 4.05 cm2MV A Dur: 128.02 msSeptal e': 0.08 | | m/sSeptal E/e': 8.07Lateral e': 0.08 m/sLateral E/e': 7.95P Vein A: 0.24 m/sP | | Vein A Dur: 107.26 msP Vein D: 0.31 m/sP Vein S/D Ratio: 1.46P Vein S: 0.46 | | m/sHR: 57.03 BPMPV maxP.15 mmHgPV meanP.62 mmHgPV Vmax: 0.53 m/sPV | | Vmean: 0.37 m/sPV VTI: 14.34 cmRAP: 15 mmHgRVSP: 37.79 mmHgTR maxP.79 | | mmHgTR Vmax: 2.37 m/sTV A Andrew: 0.22 m/sTV Dec [place]: 1.69 m/s2TV Dec Time: | | 356.97 msTV E Andrew: 0.60 m/sTV E/A Ratio: 2.[address] Magistrate: ASAuthenticated by: Iyamimi | | Laura MDReport Date/Time: 01-13-2014 19:17:49 IMPRESSION: 1. Overall left ventricular | | systolic function is normal with, an EF between 65 - 70 %.2. There is eoac-gc-umwllttn | | aortic regurgitation.3. Moderate tricuspid regurgitation present.4. The right | | ventricular systolic pressure (pulmonary artery systolic pressure), as measured by | | Doppler, is between 32.79mmHg and 37.79mmHg. | |LVIDs: 2.09 cm | |LVPWs: 1.58 cm | |SV(Teich): 35.20 ml | |RA Major: 4.92 cm | |RVIDd: 2.82 cm | |LVEF MOD A2C: 67.24 % | |SV MOD A2C: 26.34 ml | |LVEF MOD A4C: 66.30 % | |SV MOD A4C: 34.87 ml | |EF Biplane: 67.14 % | |LVEDV MOD BP: 45.51 ml | |LVESV MOD BP: 14.95 ml | |LVEDV MOD A2C: 39.16 ml | |LVLd A2C: 6.19 cm | |LVEDV MOD A4C: 52.59 ml | |LVLd A4C: 6.02 cm | |LVESV MOD A2C: 12.82 ml | |LVLs A2C: 4.52 cm | |LVESV MOD A4C: 17.72 ml | |LVLs A4C: 4.52 cm | |LAAd A4C: 12.60 cm2 | |LAEDV A-L A4C: 35.26 ml | |LAEDV MOD A4C: 31.49 ml | |LALd A4C: 3.82 cm | |Ao Diam: 2.71 cm | |AV Cusp: 1.42 cm | |LA Diam: 3.26 cm | |LA/Ao: 1.20 | |%FS: 43.75 % | |EDV(Teich): 54.77 ml | |EF(Teich): 75.85 % | |ESV(Teich): 13.22 ml | |IVSd: 1.01 cm | |IVSs: 1.32 cm | |LVIDd: 3.60 cm | |LVIDs: 2.03 cm | |LVPWd: 0.95 cm | |LVPWs: 1.52 cm | |SV(Teich): 41.55 ml | |D-E Excursion: 1.32 cm | |E-F [place]: 0.03 m/s | |TAPSE: 2.54 cm | |IVC diameter: 2.08 cm | |IVC collapse: 1.17 cm | |IVC % collapse: 41.66 % | |AR Dec [place]: 1.67 m/s2 | |AR Dec Time: 2312.76 ms | |AR maxP.80 mmHg | |AR PHT: 670.70 ms | |AR Vmax: 3.86 m/s | |HR: 58.77 BPM | |AV maxP.20 mmHg | |AV meanP.74 mmHg | |AV Vmax: 1.34 m/s | |AV Vmean: 0.92 m/s | |AV VTI: 32.08 cm | |JV Vmax: 1.68 cm2 | |JV (VTI): 1.52 cm2 | |LVCI Dopp: 1.67 l/minm2 | |LVCO Dopp: 2.71 l/min | |HR: 55.57 BPM | |LVOT maxP.23 mmHg | |LVOT meanP.92 mmHg | |LVSI Dopp: 30.19 ml/m2 | |LVSV Dopp: 48.90 ml | |LVOT Vmax: 1.02 m/s | |LVOT Vmean: 0.64 m/s | |LVOT VTI: 22.22 cm | |MR maxP.45 mmHg | |MR Vmax: 2.66 m/s | |MV A Andrew: 0.75 m/s | |MV DecT: 170.47 ms | |MV E Andrew: 0.70 m/s | |MV E/A Ratio: 0.93 | |MV PHT: 54.23 ms | |MVA By PHT: 4.05 cm2 | |MV A Dur: 128.02 ms | |Septal e': 0.08 m/s | |Septal E/e': 8.07 | |Lateral e': 0.08 m/s | |Lateral E/e': 7.95 | |P Vein A: 0.24 m/s | |P Vein A Dur: 107.26 ms | |P Vein D: 0.31 m/s | |P Vein S/D Ratio: 1.46 | |P Vein S: 0.46 m/s | |HR: 57.03 BPM | |PV maxP.15 mmHg | |PV meanP.62 mmHg | |PV Vmax: 0.53 m/s | |PV Vmean: 0.37 m/s | |PV VTI: 14.34 cm | |RAP: 15 mmHg | |RVSP: 37.79 mmHg | |TR maxP.79 mmHg | |TR Vmax: 2.37 m/s | |TV A Andrew: 0.22 m/s | |TV Dec [place]: 1.69 m/s2 | |TV Dec Time: 356.97 ms | |TV E Andrew: 0.60 m/s | |TV E/A Ratio: 2.66 | | | |[address] Court Magistrate: | |Authenticated by: Yaquelin Sanchez MD | |Report Date/Time: 01-13-2014 19:17:49 | | | |IMPRESSION: | |1. Overall left ventricular systolic function is normal with, an EF between 65 - 70 %. | |2. There is kyxg-sr-oirumsza aortic regurgitation. | |3. Moderate tricuspid regurgitation present. | |4. The right ventricular systolic pressure (pulmonary artery systolic pressure), as measure d by Doppler, is between 32.79mmHg and 37.79mmHg. | + + CK-MB (01/13/2014 6:02 PM PDT) + + + + + -+ | Component | Value | Ref Range | Performed | Pathologist | | | | | At | Signature | + + + + + -+ | CK-MB | 0.7Comment: Testing | 0.5 - 3.6 ng/mL | EXTERNAL | | | | performed at [facility] | | LAB | | | | [facility];[place], [place] | | | | | | [address] | | | | + + + + + -+ | CK-MB Index | 1.4Comment: CK INDEX | | EXTERNAL | | | | INTERPRETATION: | | LAB | | | | MMB ng/mL | | | | | | | | | | | |CK INDEX INTERPRETATION: | | | | | | MMB ng/mL | | | | | | | | | | + + + + + -+ + + | Specimen | + + | | + + + +---------+ + + | Performing | Address | City/State/Zipcode | Phone Number | | Organization | | | | + +---------+ + + | EXTERNAL LAB | | | | + +---------+ + + Troponin I (01/13/2014 6:02 PM PDT) + + + + + + | Component | Value | Ref Range | Performed | Pathologist | | | | | At | Signature | + + + + + + | Troponin I, | <0.020Comment: 0.00 to | 0.00 - 0.10 | EXTERNAL | | | Qual | 0.10 CONSISTENT WITH | ng/mL | LAB | | | | NORMAL POPULATION0.11 | | | | | | to 0.60 CONSISTENT | | | | | | WITH INCREASED RISK FOR | | | | | | ADVERSE OUTCOMES> 0.60 | | | | | | CONSISTENT | | | | | | WITH WHO CRITERIA FOR | | | | | | ACUTE RI Testing | | | | | | performed at [facility] | | | | | | [facility];[place], [place] | | | | | | [address] | | | | + + + + + + + + | Specimen | + + | Blood specimen | | (specimen) | + + + +---------+ + + | Performing | Address | City/State/Zipcode | Phone Number | | Organization | | | | + +---------+ + + | EXTERNAL LAB | | | | + +---------+ + + CK Total (01/13/2014 6:02 PM PDT) + + + + + + | Component | Value | Ref Range | Performed | Pathologist | | | | | At | Signature | + + + + + + | CK, Total | 51Comment: Testing | 30 - 240 U/L | EXTERNAL | | | | performed at [facility];[address] | | LAB | | | [address];[place], [place] | | | | | | [address] | | | | + + + + + + + + | Specimen | + + | Blood specimen | | (specimen) | + + + +---------+ + + | Performing | Address | City/State/Zipcode | Phone Number | | Organization | | | | + +---------+ + + | EXTERNAL LAB | | | | + +---------+ + + VAS Carotid Duplex Bilateral (01/13/2014 3:12 PM PDT) + + | Specimen | + + | | + + + + + | Impressions | Performed At | + + + | 1. Moderate plaque bilaterally, left greater than right with a | | | grade 3 stenosis of the left internal carotid artery in the range of | | | 50-69%. Electronically signed by Ray Oh MD on | | | 01/13/2014 3:27 PM | | + + + + + + | Narrative | Performed At | + + + | CECILE HUERTA US CAROTID DOPPLER, BILATERAL 01/13/2014 3:12 PM | | | HISTORY: Vertigo and dizziness. TECHNIQUE: Duplex ultrasound of | | | the carotid bifurcations was performed in the neck bilaterally. | | | FINDINGS: No prior relevant comparison. There is moderate plaque | | | bilaterally. There are grade 3 velocities within the upper left | | | internal carotid artery with a PSV of 147 cm second and in EDV of 45 | | | cm/s, suggesting a stenosis of 50-69%. Velocity measurements | | | elsewhere in the grade 1/2 range. Both vertebral arteries show | | | antegrade flow. | | + + + + + | Procedure Note | + + | Jacob, Rad Conversion - 03/19/2019 3:49 PM AYAZ ELMORE CAROTID DOPPLER, | | BILATERAL01/13/2014 3:12 PM HISTORY:Vertigo and dizziness. TECHNIQUE:Duplex ultrasound of | | the carotid bifurcations was performed in the neck bilaterally. FINDINGS:No prior | | relevant comparison. There is moderate plaque bilaterally. There are grade 3 velocities | | within the upper left internal carotid artery with a PSV of 147 cm second and in EDV of | | 45 cm/s, suggesting a stenosis of 50-69%. Velocity measurements elsewhere in the grade | | 1/2 range. Both vertebral arteries show antegrade flow. IMPRESSION: 1. Moderate plaque | | bilaterally, left greater than right with a grade 3 stenosis of the left internal | | carotid artery in the range of 50-69%. | |FINDINGS: | |No prior relevant comparison. There is moderate plaque bilaterally. There are grade 3 veloc ities within the upper left internal carotid artery with a PSV of 147 cm second and in EDV o f 45 cm/s, suggesting a stenosis of 50-69%. Velocity measurements | |elsewhere in the grade 1/2 range. Both vertebral arteries show antegrade flow. | | | |IMPRESSION: | |1. Moderate plaque bilaterally, left greater than right with a grade 3 stenosis of the lef t internal carotid artery in the range of 50-69%. | | | | | + + XR Chest 1 Vw (01/13/2014 12:35 PM PDT) + + | Specimen | + + | | + + + + + | Impressions | Performed At | + + + | 1. No active intrathoracic disease. | | + + + + + + | Narrative | Performed At | + + + | HISTORY: Exercise intolerance. COMPARISON: None. | | | TECHNIQUE: Portable AP upright film the chest at 1230 hrs. | | | FINDINGS: Heart size is normal. Lungs are clear. Slight ectasia and | | | tortuosity thoracic aorta. | | + + + + + | Procedure Note | + + | Og James - 03/19/2019 3:49 PM PDT HISTORY: | | Exercise intolerance. | | | | COMPARISON: | | None. | | | | TECHNIQUE: | | Portable AP upright film the chest at 1230 hrs. | | | | FINDINGS: | | Heart size is normal. Lungs are clear. Slight ectasia and tortuosity thoracic aorta. | | | | IMPRESSION: | | 1. No active intrathoracic disease. | | | | | + + CK-MB (01/13/2014 12:15 PM PDT) + + + + + -+ | Component | Value | Ref Range | Performed | Pathologist | | | | | At | Signature | + + + + + -+ | CK-MB | 0.8Comment: Testing | 0.5 - 3.6 ng/mL | EXTERNAL | | | | performed at [facility];[address] | | LAB | | | | [facility];[place] | | | | | | [address] | | | | + + + + + -+ | CK-MB Index | 1.3Comment: CK INDEX | | EXTERNAL | | | | INTERPRETATION: | | LAB | | | | MMB ng/mL | | | | | | | | | | | |CK INDEX INTERPRETATION: | | | | | | MMB ng/mL | | | | | | | | | | + + + + + -+ + + | Specimen | + + | | + + + +---------+ + + | Performing | Address | City/State/Zipcode | Phone Number | | Organization | | | | + +---------+ + + | EXTERNAL LAB | | | | + +---------+ + + Troponin I (01/13/2014 12:15 PM PDT) + + + + + + | Component | Value | Ref Range | Performed | Pathologist | | | | | At | Signature | + + + + + + | Troponin I, | <0.020Comment: 0.00 to | 0.00 - 0.10 | EXTERNAL | | | Qual | 0.10 CONSISTENT WITH | ng/mL | LAB | | | | NORMAL POPULATION0.11 | | | | | | to 0.60 CONSISTENT | | | | | | WITH INCREASED RISK FOR | | | | | | ADVERSE OUTCOMES> 0.60 | | | | | | CONSISTENT | | | | | | WITH WHO CRITERIA FOR | | | | | | ACUTE RI Testing | | | | | | performed at [facility];[address] | | | | | | [address];[place], [place] | | | | | | [address] | | | | + + + + + + + + | Specimen | + + | Blood specimen | | (specimen) | + + + +---------+ + + | Performing | Address | City/State/Zipcode | Phone Number | | Organization | | | | + +---------+ + + | EXTERNAL LAB | | | | + +---------+ + + CK Total (01/13/2014 12:15 PM PDT) + + + + + + | Component | Value | Ref Range | Performed | Pathologist | | | | | At | Signature | + + + + + + | CK, Total | 62Comment: Testing | 30 - 240 U/L | EXTERNAL | | | | performed at [facility];[address] | | LAB | | | | [address];[place] | | | | | | [address] | | | | + + + + + + + + | Specimen | + + | Blood specimen | | (specimen) | + + + +---------+ + + | Performing | Address | City/State/Zipcode | Phone Number | | Organization | | | | + +---------+ + + | EXTERNAL LAB | | | | + +---------+ + + [facility] (01/13/2014 10:34 AM PDT) + + + + + + | Component | Value | Ref Range | Performed | Pathologist | | | | | At | Signature | + + + + + + | [facility] | <0.5 (L)Comment: Testing | 0.5 - 3.6 ng/mL | EXTERNAL | | | | performed at [facility];[address] | | LAB | | | [address];[place] | | | | | | [address] | | | | + + + + + + | [facility] Index | UNABLE TO | | EXTERNAL | | | | CALCULATEComment: | | LAB | | | | Testing performed at | | | | | | [facility];[address];[place] [address] | | | | + + + + + + + + | Specimen | + + | | + + + +---------+ + + | Performing | Address | City/State/Zipcode | Phone Number | | Organization | | | | + +---------+ + + | EXTERNAL LAB | | | | + +---------+ + + Troponin I (01/13/2014 10:34 AM PDT) + + + + + + | Component | Value | Ref Range | Performed | Pathologist | | | | | At | Signature | + + + + + + | Troponin I, | <0.020Comment: 0.00 to | 0.00 - 0.10 | EXTERNAL | | | Qual | 0.10 CONSISTENT WITH | ng/mL | LAB | | | | NORMAL POPULATION0.11 | | | | | | to 0.60 CONSISTENT | | | | | | WITH INCREASED RISK FOR | | | | | | ADVERSE OUTCOMES> 0.60 | | | | | | CONSISTENT | | | | | | WITH WHO CRITERIA FOR | | | | | | ACUTE RI Testing | | | | | | performed at [facility];[id number] | | | | | | [address];[place], [place] | | | | | | [address] | | | | + + + + + + + + | Specimen | + + | Blood specimen | | (specimen) | + + + +---------+ + + | Performing | Address | City/State/Zipcode | Phone Number | | Organization | | | | + +---------+ + + | EXTERNAL LAB | | | | + +---------+ + + External Lab: CBC (01/13/2014 10:34 AM PDT) + + + + + + | Component | Value | Ref Range | Performed | Pathologist | | | | | At | Signature | + + + + + + | WBC | 7.2Comment: Testing | 3.8 - 11.0 K/uL | EXTERNAL | | | | performed at [facility];[address] | LAB | | | [address];[place] | | | | | | [address] | | | | + + + + + + | RED CELL | 4.08Comment: Testing | 3.70 - 5.10 | EXTERNAL | | | COUNT | performed at [facility];[address] | M/uL | LAB | | | | [address];[place] | | | | | | [address] | | | | + + + + + + | Hgb | 12.5Comment: Testing | 11.3 - 15.5 | EXTERNAL | | | | performed at [facility] [facility];888 | g/dL | LAB | | | | [address];[place] | | | | | | [address] | | | | + + + + + + | Hematocrit, | 35.9Comment: Testing | 34.0 - 46.0 % | EXTERNAL | | | POC | performed at [facility];888 | | LAB | | | | [address];[place] | | | | | | [address] | | | | + + + + + + | MCV | 87.9Comment: Testing | 80.0 - 100.0 fl | EXTERNAL | | | | performed at [facility];888 | | LAB | | | | [address];[place] | | | | | | [address] | | | | + + + + + + | MCH | 30.6Comment: Testing | 27.0 - 34.0 pg | EXTERNAL | | | | performed at [facility];888 | | LAB | | | | [address];[place] | | | | | | [address] | | | | + + + + + + | MCHC | 34.8Comment: Testing | 32.0 - 35.5 | EXTERNAL | | | | performed at [facility];888 | g/dL | LAB | | | | [address];[place] | | | | | | [address] | | | | + + + + + + | RDW-CV | 40.7Comment: Testing | 37 - 53 fl | EXTERNAL | | | | performed at [facility];888 | | LAB | | | | [address];[place] | | | | | | [address] | | | | + + + + + + | Platelet | 216Comment: Testing | 150 - 400 K/uL | EXTERNAL | | | Count | performed at [facility];888 | | LAB | | | Plasma | [address];[place] | | | | | | [address] | | | | + + + + + + | MPV | 8.3Comment: Testing | fl | EXTERNAL | | | | performed at [facility];[address] | | LAB | | | | [address];[place] | | | | | | [address] | | | | + + + + + + | Differentia | AUTOMATEDComment: | | EXTERNAL | | | l Type | Testing performed at | | LAB | | | | [facility];[address];[place] [address] | | | | + + + + + + | % Segmented | 73.3Comment: Testing | % | EXTERNAL | | | | performed at [facility];888 | | LAB | | | Neutrophils | [address];[place] | | | | | | [address] | | | | + + + + + + | % | 21.6Comment: Testing | % | EXTERNAL | | | Lymphocytes | performed at [facility];[address] | | LAB | | | | [address];[place] | | | | | | [address] | | | | + + + + + + | % Monocytes | 4.4Comment: Testing | % | EXTERNAL | | | | performed at [facility];[address] | | LAB | | | | [address];[place] | | | | | | [address] | | | | + + + + + + | % | 0.2Comment: Testing | % | EXTERNAL | | | Eosinophils | performed at [facility];888 | | LAB | | | | [address];[place] | | | | | | [address] | | | | + + + + + + | % Basophils | 0.5Comment: Testing | % | EXTERNAL | | | | performed at [facility];888 | | LAB | | | | [address];[place] | | | | | | [address] | | | | + + + + + + | Absolute | 5.2Comment: Testing | 1.9 - 7.4 K/uL | EXTERNAL | | | Segmented | performed at [facility];888 | | LAB | | | Neutrophils | [address];[place] | | | | | | [address] | | | | + + + + + + | Absolute | 1.5Comment: Testing | 1.0 - 3.9 K/uL | EXTERNAL | | | Lymphocytes | performed at [facility];[address] | | LAB | | | | [address];[place] | | | | | | [address] | | | | + + + + + + | Absolute | 0.3Comment: Testing | 0 - 0.8 K/uL | EXTERNAL | | | Monocytes | performed at [facility];[address] | | LAB | | | | [address];[place] | | | | | | [address] | | | | + + + + + + | Absolute | 0.0Comment: Testing | 0 - 0.5 K/uL | EXTERNAL | | | Eosinophils | performed at [facility];[address] | | LAB | | | | [address];[place] | | | | | | [address] | | | | + + + + + + | Absolute | 0.0Comment: Testing | 0 - 0.1 K/uL | EXTERNAL | | | Basophils | performed at [facility];[address] | | LAB | | | | [address];[place], [place] | | | | | | [address] | | | | + + + + + + + + | Specimen | + + | Blood specimen | | (specimen) | + + + +---------+ + + | Performing | Address | City/State/Zipcode | Phone Number | | Organization | | | | + +---------+ + + | EXTERNAL LAB | | | | + +---------+ + + TSH (01/13/2014 10:34 AM PDT) + + + + + + | Component | Value | Ref Range | Performed | Pathologist | | | | | At | Signature | + + + + + + | TSH | 2.36Comment: Testing | 0.45 - 5.10 | EXTERNAL | | | | performed at [facility];888 | uIU/mL | LAB | | | | [address];[place], [place] | | | | | | [address] | | | | + + + + + + + + | Specimen | + + | Blood specimen | | (specimen) | + + + +---------+ + + | Performing | Address | City/State/Zipcode | Phone Number | | Organization | | | | + +---------+ + + | EXTERNAL LAB | | | | + +---------+ + + T4, Free (01/13/2014 10:34 AM PDT) + + + + + + | Component | Value | Ref Range | Performed | Pathologist | | | | | At | Signature | + + + + + + | FREE T4 | 1.0Comment: Testing | 0.7 - 1.5 ng/dL | EXTERNAL | | | (REF) | performed at [facility] | | LAB | | | | [address];[place], [place] | | | | | | [address] | | | | + + + + + + + + | Specimen | + + | Blood specimen | | (specimen) | + + + +---------+ + + | Performing | Address | City/State/Zipcode | Phone Number | | Organization | | | | + +---------+ + + | EXTERNAL LAB | | | | + +---------+ + + Phosphorus (01/13/2014 10:34 AM PDT) + + + + + + | Component | Value | Ref Range | Performed | Pathologist | | | | | At | Signature | + + + + + + | PHOSPHORUS | 3.2Comment: Testing | 2.3 - 4.8 mg/dL | EXTERNAL | | | | performed at [facility] | | LAB | | | | [address];[place] | | | | | | [address] | | | | + + + + + + + + | Specimen | + + | | + + + +---------+ + + | Performing | Address | City/State/Zipcode | Phone Number | | Organization | | | | + +---------+ + + | EXTERNAL LAB | | | | + +---------+ + + B Type Natriuretic Peptide (01/13/2014 10:34 AM PDT) + + + + + + | Component | Value | Ref Range | Performed | Pathologist | | | | | At | Signature | + + + + + + | BNP | 82.1Comment: Testing | 0 - 100 pg/mL | EXTERNAL | | | | performed at [facility];[address] | | LAB | | | | [address];[place], [place] | | | | | | [address] | | | | + + + + + + + + | Specimen | + + | Blood specimen | | (specimen) | + + + +---------+ + + | Performing | Address | City/State/Zipcode | Phone Number | | Organization | | | | + +---------+ + + | EXTERNAL LAB | | | | + +---------+ + + Magnesium (01/13/2014 10:34 AM PDT) + + + + + + | Component | Value | Ref Range | Performed | Pathologist | | | | | At | Signature | + + + + + + | Magnesium | 1.7Comment: Testing | 1.7 - 2.4 mg/dL | EXTERNAL | | | | performed at [facility] | | LAB | | | | [address];[place] | | | | | | [address] | | | | + + + + + + + + | Specimen | + + | Blood specimen | | (specimen) | + + + +---------+ + + | Performing | Address | City/State/Zipcode | Phone Number | | Organization | | | | + +---------+ + + | EXTERNAL LAB | | | | + +---------+ + + CK Total (01/13/2014 10:34 AM PDT) + + + + + + | Component | Value | Ref Range | Performed | Pathologist | | | | | At | Signature | + + + + + + | CK, Total | 62Comment: Testing | 30 - 240 U/L | EXTERNAL | | | | performed at [facility];8 | | LAB | | | | [facility];[place], [place] | | | | | | [address] | | | | + + + + + + + + | Specimen | + + | Blood specimen | | (specimen) | + + + +---------+ + + | Performing | Address | City/State/Zipcode | Phone Number | | Organization | | | | + +---------+ + + | EXTERNAL LAB | | | | + +---------+ + + Basic Metabolic Panel (01/13/2014 10:34 AM PDT) + + + + + + | Component | Value | Ref Range | Performed | Pathologist | | | | | At | Signature | + + + + + + | Na | 143Comment: Testing | 135 - 143 | EXTERNAL | | | | performed at [facility];888 | mmol/L | LAB | | | | [address];[place] | | | | | | [address] | | | | + + + + + + | K | 3.9Comment: Testing | 3.5 - 4.9 | EXTERNAL | | | | performed at [facility];888 | mmol/L | LAB | | | | [address];[place] | | | | | | [address] | | | | + + + + + + | Cl | 112 (H)Comment: Testing | 99 - 109 mmol/L | EXTERNAL | | | | performed at [facility];[address] | | LAB | | | | [address];[place] | | | | | | [address] | | | | + + + + + + | CO2 | 24Comment: Testing | 23 - 32 mmol/L | EXTERNAL | | | | performed at [facility];[address] | | LAB | | | | [address];[place] | | | | | | [address] | | | | + + + + + + | Anion Gap | 11Comment: Testing | 5 - 20 mmol/L | EXTERNAL | | | | performed at [facility];[address] | | LAB | | | | [address];[place] | | | | | | [address] | | | | + + + + + + | Glucose, | 109 (H)Comment: Testing | 65 - 99 mg/dL | EXTERNAL | | | Fasting | performed at [facility];[address] | | LAB | | | | [address];[place] | | | | | | [address] | | | | + + + + + + | BUN | 11Comment: Testing | 8 - 25 mg/dL | EXTERNAL | | | | performed at [facility];[address] | | LAB | | | | [address];[place] | | | | | | [address] | | | | + + + + + + | Creatinine | 0.64Comment: Testing | 0.50 - 1.00 | EXTERNAL | | | | performed at [facility];888 | mg/dL | LAB | | | | [address];[place] | | | | | | [address] | | | | + + + + + + | BUN/Creatin | 17Comment: Testing | | EXTERNAL | | | ine Ratio | performed at [facility];[address] | | LAB | | | | [address];[place] | | | | | | [address] | | | | + + + + + + | Calcium | 8.3 (L)Comment: Testing | 8.5 - 10.2 | EXTERNAL | | | | performed at [facility];888 | mg/dL | LAB | | | | [address];[place] | | | | | | [address] | | | | + + + + + + | Estimated | >60Comment: GFR <60: | mL/min/1.73m2 | EXTERNAL | | | GFR | CHRONIC KIDNEY DISEASE, | | LAB | | | | IF FOUND OVER A 3 MONTH | | | | | | PERIOD.GFR <15: KIDNEY | | | | | | FAILURE.FOR | | | | | | AMERICANS, MULTIPLY THE | | | | | | CALCULATED GFR BY | | | | | | 1.210.Testing performed | | | | | | at [facility];[address];[place] [address] | | | | + + + + + + + + | Specimen | + + | Blood specimen | | (specimen) | + + + +---------+ + + | Performing | Address | City/State/Zipcode | Phone Number | | Organization | | | | + +---------+ + + | EXTERNAL LAB | | | | + +---------+ + + ECG 12 lead (01/13/2014 9:27 AM PDT) + + + + + + | Component | Value | Ref Range | Performed | Pathologist | | | | | At | Signature | + + + + + + | DIAGNOSIS: | Normal sinus rhythm with | | EXTERNAL | | | | sinus arrhythmiaNormal | | LAB | | | | ECGNo previous ECGs | | | | | | availableThis ECG | | | | | | contains Unconfirmed | | | | | | Interpretation | | | | | | Statements. See ED | | | | | | Record for Physician | | | | | | Interpretation. | | | | | | Confirmed by MUSE READ | | | | | | ONLY, -COMPUTER ([id number]), | | | | | | staff editor Jose Enrique Fernandez | | | | | | ([phone]) on 01/13/2014 | | | | | | 2:09:29 PM | | | | + + + + + + + + | Specimen | + + | | + + + + + | Narrative | Performed At | + + + | Historically converted procedure from [facility] environment | EXTERNAL LAB | + + + + +---------+ + + | Performing | Address | City/State/Zipcode | Phone Number | | Organization | | | | + +---------+ + + | EXTERNAL LAB | | | | + +---------+ + + documented in this encounter Visit Diagnoses + + | Diagnosis | + + | HTN (hypertension) Unspecified essential hypertension | + + | GERD (gastroesophageal reflux disease) Esophageal reflux | + + | Dizziness Dizziness and giddiness | + + | Arrhythmia Cardiac dysrhythmia, unspecified | + + documented in this encounter
--- OUTSIDE RECORDS SUMMARY | ~2019-08-08 | XMS | Encounter Summary ---
Demographics + + + | Address | [address] | | | [place] [address] | + + + | Home Phone | | + + + | Preferred Language | Unknown | + + + | Marital Status | | + + + | Taoism Affiliation | Unknown | + + + | Race | Unknown | + + + | Ethnic Group | Unknown | + + + Author + + + | Author | [facility] | | | and [place] | + + + | Organization | [facility] | | | [...] [place] | | | | | [address] | | + + + + + | Cyndy Mcneal | ECON | [place] | | | | | [address] | | + + + + + Care Team Providers + +------+ + | Care Heel Brusher Name | Role | Phone | + +------+ + PCP | Unavailable | + +------+ + Encounter Details +--------+ + + + + | Date | Type | Department | Care Team | Description | +--------+ + + + + | 02/03/ | Hospital | [facility] | | | | 2008 | Encounter | MED CTR XRAY [address] | | | | | | [place] | | | | | | [place] [address] | | | | | | [phone] | | | +--------+ + + + [...] Not on filedocumented as of this encounter Visit Diagnoses Not on filedocumented in this encounter"
--- OUTSIDE RECORDS SUMMARY | ~2019-08-08 | XMS | Encounter Summary ---
Demographics + + + | Address | [address] | | | [place] [address] | + + + | Home Phone | | + + + | Preferred Language | Unknown | + + + | Marital Status | | + + + | Episcopal Affiliation | Unknown | + + + | Race | Unknown | + + + | Ethnic Group | Unknown | + + + Author + + + | Author | [facility] | | | and [place] | + + + | Organization | [facility] | | [...] [place] | | | | | [address] | | + + + + + | Cyndy Mcneal | ECON | [place] | | | | | [address] | | + + + + + Care Team Providers + +------+ + | Care Manager Change Name | Role | Phone | + +------+ + PCP | Unavailable | + +------+ + Encounter Details +--------+ + + + + | Date | Type | Department | Care Team | Description | +--------+ + + + + | 01/13/ | Hospital | [facility] | Ray Velazquez, | HTN (hypertension); | | 2013 - | Encounter | MEDICAL CENTER | [address] | GERD | | | | CLINICAL DECISION | [place] [address] | (gastroesophageal | | 01/14/ | | [address] | [phone] | reflux disease); | | 2013 | | [place], [place] | | Dizziness; | | | | [address] | | Arrhythmia | | | | [phone] | | | +--------+ + + + [...] Date of Service: 01/14/14 1102 Status: Signed Allergy And Immunology Specialist: Louis Mayers MD (Physician) Related Notes: Original Note by Louis Mayers MD (Physician) filed at 01/14/14 1115 [facility] Service: Hospitalist Discharge Summary Date of Admission: [...] 65 - 70 %. 2. There is rpzg-fw-aqmvbwma aortic regurgitation. 3. Moderate tricuspid regurgitatio n present. 4. The right ventricular systolic pressure (pulmonary artery systolic pressure), as measured by Doppler, is between 32.79mmHg and 37.79mmHg. BRIEF HISTORY OF PRESENTATION: Cecile Hureta is a 83 y.o. female who HOSPITAL [...] presented to the emerg ency department at [facility] where she was noted to have a [...] an ejection fraction of 65% to 70%, khem-mu-zylxfnov aortic regurgitation and moderate tricuspid regurgitation. Workup [...] on file. Follow up: Bud Conway MD [address] [place] [address] Schedule an appointment as soon as possible for a visit in 1 week Cuate Simons MD [address] [place] [address] In 1 week Medication List As of [...] Date of Service: 01/14/14 1400 Status: Signed Allergy And Immunology Specialist: Rhona Amanda RN (Registered Nurse) Pt given [...] Date of Service: 01/14/14 1147 Status: Signed Allergy And Immunology Specialist: Rhona Amanda RN (Registered Nurse) Pt will be getting discharge to go home today. She is trying to find a ride. onver edwar Transaction, Provider Unknown - 01/14/2014 9:51 AM PDT Nurse Progress Note by Rhona Amanda RN at 01/14/14 0951 Author: Rhona Amanda RN Service: (none) Author Type: Registered Nurse Filed: 01/14/14 0952 Date of Service: 01/14/14 0951 Status: Signed Allergy And Immunology Specialist: Rhona Amanda RN (Registered Nurse) Spoke w/ Dr Mayers, he does not want to proceed with speech eval at this time. onver edwar Transaction, Provider Unknown - 01/14/2014 9:08 AM PDT Nurse Progress Note by Rhona Amanda RN at 01/14/14907 Author: Rhona Amanda RN Service: (none) Author Type: Registered Nurse Filed: 01/14/14908 Date of Service: 01/14/14907 Status: Signed Allergy And Immunology Specialist: Rhona Amanda RN (Registered Nurse) Physical Therapist [...] 01/14/14839 Date of Service: 01/14/14839 Status: Signed Allergy And Immunology Specialist: Rhona Amanda RN (Registered Nurse) Physical therapy in pt's room at this time. Geovanna Sahu PT - 01/14/2014 8:20 AM PDTFormatting of this note might be different from th e original. Therapy Progress Note by Geovanna Whitman PT at 01/14/14 08 Author: Geovanna Whitman PT Service: (none) Author Type: Physical Therapist Filed: 01/14/14942 Date of Service: 01/14/14819 Status: Signed Allergy And Immunology Specialist: Geovanna Whitman PT (Physical Therapist) 01/14/14819 PT Last Visit PT Received On 01/14/14 Reason for Treatment Deconditioning;Other (comment) (syncope, hypertensive event -1 each) Requires PT Follow Up Awaiting tx order Follow up PT Only? No PT Eval/Reassessment Date 01/14/14 Assistance Required 1 person Career Resource Specialist Needed No Precautions Other Precautions fall risk [...] Equipment None Additional Comments reji Shahriar michael [phone] or [phone] - niece lives here cyndy cooper rris([phone]) [phone] patient's cell phone Recommendation Recommendations Outpatient PT;Return to prior living situation Equipment Recommended None Prior Function Level of Gila Independent with functional mobility;Independent with ADLs;Independe nt [...] Eval/Reassessment Date 01/14/14 Assistance Required 1 person Career Resource Specialist Needed No Precautions Other Precautions fall risk [...] 01/14/145 Date of Service: 01/14/14453 Status: Signed Allergy And Immunology Specialist: Jazmyn Young RN (Registered Nurse) No complaints of pain, slept most of the night. No concerns or questions raised. onver edwar Transaction, Provider Unknown - 01/13/2014 8:37 PM PDT Case Management by DREW Courtney at 01/13/142036 Author: DREW Courtney Service: (none) Author Type: Education Analyst Filed: 01/13/142036 Date of Service: 01/13/142036 Status: Signed Allergy And Immunology Specialist: DREW Courtney (Education Analyst) 01/13/142028 Discharge Planning Evaluation Admitting Diagnosis HTN [...] Plan Yes Name of Pharmacy [facility], [place] Previous home health equipment No Vascular access device No Ostomy/Drains/Appliances No Anticipated Disposition Facility Type Other (Comment) (Return home) Conangelica Calhounaction, Provider Unknown - 01/13/2014 2:48 PM PDT Therapy Progress Note by Jovi Jaramillo PT at 01/13/14 1448 Author: Jovi Jaramillo PT Service: (none) Author Type: Physical Therapist Filed: 01/13/148 Date of Service: 01/13/141447 Status: Signed Allergy And Immunology Specialist: Jovi Jaramillo PT (Physical Therapist) 01/13/148 PT Last Visit PT Received On 01/13/14 Requires PT Follow Up Unavailable (Ptis not currently in her room) Mega Fisher, Provider Unknown - 01/13/2014 12:44 PM PDT Progress Notes by Nicho Quezada RPH at 01/13/14 1244 Author: Nicho Quezada RPH Service: (none) Author Type: Pharmacist Filed: 01/13/144 Date of Service: 01/13/141243 Status: Signed Allergy And Immunology Specialist: Nicho Quezada RPH (Pharmacist) Clinical Pharmacy Note: Renal Monitoring Cecile Huerta 83 y.o. female Ht Readings from Last 1 Encounters: No data found for Ht Wt Readings from Last 1 Encounters: No data found for Wt CREATININE Date Value Range Status 01/13/2014 0.64 0.50 - 1.00 mg/dL Final Testing performed at [facility];[address];[place] [address] Creatinine clearance cannot be calculated - Unknown ideal weight. Pharmacy dosing for renal function per Dr. Velazquez. Currently, there are no medications needing to be adjusted. Pharmacy will continue to monit or for changes in medication orders and in renal function and adjust accordingly. Nicho Quezada [facility] 01/13/2014 12:44 PM docume nted in [...] EXTERNAL | | | | performed at [facility];[address] | | LAB | | | | [address];[place], [place] | | | | | | [address] | | | | + + + [...] | | | | | | ACUTE SC Testing | | | | | | performed at [facility] | | | | | | [facility];[place], [place] | | | | | | [address] | | | | + + + [...] | | | | | [place] [address] | | | | + + + + + + | RED CELL | 3.70Comment: Testing | 3.70 - 5.10 | EXTERNAL | | | COUNT | performed at [facility], [address] | M/uL | LAB | | | | [address], | | | | | | [place] [address] | | | | + + + + + + | Hgb | 11.3Comment: Testing | 11.3 - 15.5 | EXTERNAL | | | | performed at [facility], [address] | g/dL | LAB | | | | [address], | | | | | | [place] [address] | | | | + + + + + + | Hematocrit, | 33.3 (L)Comment: Testing | 34.0 - 46.0 % | EXTERNAL | | | POC | performed at [facility], [address] | | LAB | | | | [address], | | | | | | [place] [address] | | | | + + + + + + | MCV | 89.8Comment: Testing | 80.0 - 100.0 fl | EXTERNAL | | | | performed at [facility], [address] | | LAB | | | | [address], | | | | | | [place] [address] | | | | + + + + + + | MCH | 30.6Comment: Testing | 27.0 - 34.0 pg | EXTERNAL | | | | performed at [facility], [address] | | LAB | | | | [address], | | | | | | [place] [address] | | | | + + + + + + | MCHC | 34.1Comment: Testing | 32.0 - 35.5 | EXTERNAL | | | | performed at [facility], [address] | g/dL | LAB | | | | [address], | | | | | | [place] [address] | | | | + + + + + + | RDW-CV | 42.4Comment: Testing | 37 - 53 fl | EXTERNAL | | | | performed at [facility], [address] | | LAB | | | | [address], | | | | | | [place] [address] | | | | + + + + + + | Platelet | 173Comment: Testing | 150 - 400 K/uL | EXTERNAL | | | Count | performed at [facility], [address] | | LAB | | | Plasma | [address], | | | | | | [place] [address] | | | | + + + + + + | MPV | 8.6Comment: Testing | fl | EXTERNAL | | | | performed at [facility], [address] | | LAB | | | | [address], | | | | | | [place] [address] | | | | + + + + + + | Differentia | AUTOMATEDComment: | | EXTERNAL | | | l Type | Testing performed at | | LAB | | | | [facility], [address] | | | | | | [place] | | | | | | [address] | | | | + + + + + + | % Segmented | 41.0Comment: Testing | % | EXTERNAL | | | | performed at [facility], [address] | | LAB | | | Neutrophils | [address], | | | | | | [place] [address] | | | | + + + + + + | % | 47.9Comment: Testing | % | EXTERNAL | | | Lymphocytes | performed at [facility], [address] | | LAB | | | | [address], | | | | | | [place] [address] | | | | + + + + + + | % Monocytes | 8.2Comment: Testing | % | EXTERNAL | | | | performed at [facility], [address] | | LAB | | | | [address], | | | | | | [place] [address] | | | | + + + + + + | % | 2.1Comment: Testing | % | EXTERNAL | | | Eosinophils | performed at [facility], [address] | | LAB | | | | [address], | | | | | | [place] [address] | | | | + + + + + + | % Basophils | 0.8Comment: Testing | % | EXTERNAL | | | | performed at [facility], [address] | | LAB | | | | [address], | | | | | | [place] [address] | | | | + + + + + + | Absolute | 2.3Comment: Testing | 1.9 - 7.4 K/uL | EXTERNAL | | | Segmented | performed at [facility], [address] | | LAB | | | Neutrophils | [address], | | | | | | [place] [address] | | | | + + + + + + | Absolute | 2.7Comment: Testing | 1.0 - 3.9 K/uL | EXTERNAL | | | Lymphocytes | performed at [facility], [address] | | LAB | | | | [address], | | | | | | [place] [address] | | | | + + + + + + | Absolute | 0.5Comment: Testing | 0 - 0.8 K/uL | EXTERNAL | | | Monocytes | performed at [facility], [address] | | LAB | | | | [address], | | | | | | [place] [address] | | | | + + + + + + | Absolute | 0.1Comment: Testing | 0 - 0.5 K/uL | EXTERNAL | | | Eosinophils | performed at [facility], [address] | | LAB | | | | [address], | | | | | | [place] [address] | | | | + + + + + + | Absolute | 0.0Comment: Testing | 0 - 0.1 K/uL | EXTERNAL | | | Basophils | performed at [facility], [address] | | LAB | | | | [address], | | | | | | [place] [address] | | | | + + + [...] EXTERNAL | | | | performed at [facility], [address] | | LAB | | | | [address], | | | | | | [place] [address] | | | | + + + [...] EXTERNAL | | | | performed at [facility], [address] | | LAB | | | | [address], | | | | | | [place] [address] | | | | + + + [...] + + | Hemoglobin | 5.2Comment: The Macedonian | 4.0 - 6.0 % | EXTERNAL [...] | | | | | performed at [facility], [address] | | | | | | [address] [facility], | | | | | | [place] [address] | | | | + + + [...] | | | | | performed at [facility], [address] | | | | | | [facility], | | | | | | [place] [address] | | | | + + + [...] EXTERNAL | | | | performed at [facility];[address] | | LAB | | | | [address];[place] | | | | | | [address] | | | | + + + [...] | | | | | [place] [address] | | | | + + + + + + | Triglycerid | 98Comment: Testing | mg/dL | EXTERNAL | | | es | performed at [facility], [address] | | LAB | | | | [address], | | | | | | [place] [address] | | | | + + + + + + | HDL | 46Comment: Testing | mg/dL | EXTERNAL | | | | performed at [facility], [address] | | LAB | | | | [address], | | | | | | [place] [address] | | | | + + + + + + | LDL | 54Comment: Testing | mg/dL | EXTERNAL | | | Cholesterol | performed at [facility], [address] | | LAB | | | , | [address], | | | | | Calculated, | [place] [address] | | | | | External | [...] | | | | | [place] [address] | | | | + + + + + + | K | 3.8Comment: Testing | 3.5 - 4.9 | EXTERNAL | | | | performed at [facility], [address] | mmol/L | LAB | | | | [address], | | | | | | [place] [address] | | | | + + + + + + | Cl | 112 (H)Comment: Testing | 99 - 109 mmol/L | EXTERNAL | | | | performed at [facility], [address] | | LAB | | | | [address], | | | | | | [place] [address] | | | | + + + + + + | CO2 | 25Comment: Testing | 23 - 32 mmol/L | EXTERNAL | | | | performed at [facility], [address] | | LAB | | | | [address], | | | | | | [place] [address] | | | | + + + + + + | Anion Gap | 8Comment: Testing | 5 - 20 mmol/L | EXTERNAL | | | | performed at [facility], [address] | | LAB | | | | [address], | | | | | | [place] [address] | | | | + + + + + + | Glucose, | 90Comment: Testing | 65 - 99 mg/dL | EXTERNAL | | | Fasting | performed at [facility], [address] | | LAB | | | | [address], | | | | | | [place] [address] | | | | + + + + + + | BUN | 19Comment: Testing | 8 - 25 mg/dL | EXTERNAL | | | | performed at [facility], [address] | | LAB | | | | [address], | | | | | | [place] [address] | | | | + + + + + + | Creatinine | 1.00Comment: Testing | 0.50 - 1.00 | EXTERNAL | | | | performed at [facility], [address] | mg/dL | LAB | | | | [address], | | | | | | [place] [address] | | | | + + + + + + | BUN/Creatin | 19Comment: Testing | | EXTERNAL | | | ine Ratio | performed at [facility], [address] | | LAB | | | | [address], | | | | | | [place] [address] | | | | + + + + + + | Calcium | 8.4 (L)Comment: Testing | 8.5 - 10.2 | EXTERNAL | | | | performed at [facility], [address] | mg/dL | LAB | | | | [address], | | | | | | [place] [address] | | | | + + + [...] | | | | | | at [facility], [address] | | | | | | [place] [address], | | | | | | [place] [address] | | | | + + + [...] + + | Historically converted procedure from [facility] environment | EXTERNAL LAB | + + [...] EXTERNAL | | | | performed at [facility];[address] | | LAB | | | | [address];[place] | | | | | | [address] | | | | + + + [...] | | | | | | ACUTE SC Testing | | | | | | performed at [facility];[address] | | | | | | [facility];[place], [place] | | | | | | [address] | | | | + + + [...] EXTERNAL | | | | performed at [facility];[address] | | LAB | | | [address];[place], [place] | | | | | | [address] | | | | + + + [...] EXTERNAL | | | | performed at [facility];[address] | | LAB | | | | [address];[place] | | | | | | [address] | | | | + + + + + + | Clarity | CLEARComment: Testing | | EXTERNAL | | | | performed at [facility];[address] | | LAB | | | [address];[place] | | | | | | [address] | | | | + + + + + + | Specific | 1.020Comment: Testing | 1.001 - 1.035 | EXTERNAL | | | Clio | performed at [facility];[address] | | LAB | | | [address];[place] | | | | | | [address] | | | | + + + + + + | Leukocyte | TRACE (A)Comment: | | EXTERNAL | | | Esterase, | Testing performed at | | LAB | | | Urine | [facility];[address];[place] [address] | | | | + + + + + + | Nitrite, | NEGATIVEComment: Testing | | EXTERNAL | | | Urine | performed at [facility];[address] | | LAB | | | [address];[place] | | | | | | [address] | | | | + + + + + + | Urobilinoge | 0.2Comment: Testing | mg/dL | EXTERNAL | | | n, Urine | performed at [facility];[address] | | LAB | | | [address];[place] | | | | | | [address] | | | | + + + + + + | Protein, | NEGATIVEComment: Testing | mg/dL | EXTERNAL | | | Urine | performed at [facility];[address] | | LAB | | | [address];[place] | | | | | | [address] | | | | + + + + + + | pH, Urine | 6.5Comment: Testing | 4.6 - 8.0 | EXTERNAL | | | | performed at [facility];[address] | | LAB | | | [address];[place] | | | | | | [address] | | | | + + + + + + | Blood, | NEGATIVEComment: Testing | | EXTERNAL | | | Urine | performed at [facility];[address] | | LAB | | | [address];[place] | | | | | | [address] | | | | + + + + + + | Ketones | NEGATIVEComment: Testing | mg/dL | EXTERNAL | | | | performed at [facility];[address] | | LAB | | | [address];[place] | | | | | | [address] | | | | + + + + + + | Bilirubin, | NEGATIVEComment: Testing | | EXTERNAL | | | Urine | performed at [facility];[address] | | LAB | | | [address];[place] | | | | | | [address] | | | | + + + + + + | Glucose, | NEGATIVEComment: Testing | mg/dL | EXTERNAL | | | Urine | performed at [facility];[address] | | LAB | | | [address];[place] | | | | | | [address] | | | | + + + [...] EXTERNAL | | | | performed at [facility];[address] | | LAB | | | [address];[place] | | | | | | [address] | | | | + + + + + + | RBC, UA | NONE SEENComment: | 0 - 5 /hpf | EXTERNAL | | | | Testing performed at | | LAB | | | | [facility];[address];[place] [address] | | | | + + + + + + | Epithelial | NONE SEENComment: | /lpf | EXTERNAL | | | Cells | Testing performed at | | LAB | | | | [facility];[address];[place] [address] | | | | + + + + + + | Bacteria, | NONE SEENComment: | | EXTERNAL | | | UA | Testing performed at | | LAB | | | | [facility];[address];[place] [address] | | | | + + + + + + | MUCUS UA | 1+Comment: Testing | | EXTERNAL | | | | performed at [facility];[address] | | LAB | | | | [address];[place] | | | | | | [address] | | | | + + + [...] 65 - 70 %. 2. There is uxni-oo-xqxkmhav aortic regurgitation. | | | 3. Moderate [...] %. | | | 2. There is xetx-ic-saeaflco aortic regurgitation. 3. Moderate | | | [...] Aortic Valve: There is | | | yiyv-kr-weibdnax aortic regurgitation. Mitral Valve: Mitral valve is [...] | | D-E [place]: 1.32 cm E-F [place]: 0.03 m/s TAPSE: 2.54 cm | | | IVC diameter: 2.08 cm IVC collapse: 1.17 cm IVC % collapse: | | | 41.66 % AR Dec [place]: 1.67 m/s2 AR Dec Time: 2312.76 ms [...] 0.22 m/s TV | | | Dec [place]: 1.69 m/s2 TV Dec Time: 356.97 ms TV E Andrew: 0.60 | | | m/s TV E/A Ratio: 2.66 Dolly Pusher: Authenticated by: Yaquelin | | | Laura [...] - 70 %.2. | | There is gmvs-hk-vmpyosse aortic regurgitation.3. Moderate tricuspid regurgitation | | [...] without | | stenosis.Aortic Valve: There is ciiv-qz-hlkhjidx aortic regurgitation.Mitral Valve: | | Mitral valve [...] 17.72 mlLVLs A4C: 4.52 cmLAAd A4C: 12.60 qz0VRNZO A-L A4C: 35.26 mlLAEDV MOD A4C: | | 31.49 mlLALd A4C: 3.82 cmAo Diam: 2.71 cmAV Cusp: 1.42 cmLA Diam: 3.26 | | cmLA/Ao: 1.20%FS: 43.75 %EDV(Teich): 54.77 mlEF(Teich): 75.85 %ESV(Teich): | | 13.22 mlIVSd: 1.01 cmIVSs: 1.32 cmLVIDd: 3.60 cmLVIDs: 2.03 cmLVPWd: 0.95 | | cmLVPWs: 1.52 cmSV(Teich): 41.55 mlD-E [place]: 1.32 cmE-F [place]: 0.03 | | m/sTAPSE: 2.54 cmIVC diameter: 2.08 cmIVC collapse: 1.17 cmIVC % collapse: 41.66 | | %AR Dec [place]: 1.67 m/s2AR Dec Time: 2312.76 msAR maxP.80 mmHgAR PHT: | | 670.70 msAR Vmax: 3.86 m/sHR: 58.77 BPMAV maxP.20 mmHgAV meanP.74 mmHgAV | | Vmax: 1.34 m/Ronak Vmean: 0.92 m/Ronak VTI: 32.08 cmAVA Vmax: 1.68 cm2AVA (VTI): | | 1.52 nv6YHIA Dopp: 1.67 l/iyzv8TTYB Dopp: 2.71 l/minHR: 55.57 BPMLVOT maxPG: | [...] 2.37 m/sTV A Andrew: 0.22 m/sTV Dec [place]: 1.69 m/s2TV Dec Time: | | 356.97 msTV E Andrew: 0.60 m/sTV E/A Ratio: 2.66 Dolly Pusher: ASAuthenticated by: Iyamimi | | Laura MDReport Date/Time: 01-13-2014 19:17:49 IMPRESSION: 1. Overall left ventricular | | systolic function is normal with, an EF between 65 - 70 %.2. There is lfqe-oa-ksvudgsv | | aortic regurgitation.3. Moderate tricuspid regurgitation [...] | |D-E [place]: 1.32 cm | |E-F [place]: 0.03 m/s | |TAPSE: 2.54 cm | |IVC diameter: 2.08 cm | |IVC collapse: 1.17 cm | |IVC % collapse: 41.66 % | |AR Dec [place]: 1.67 m/s2 | |AR Dec Time: 2312.76 [...] A Andrew: 0.22 m/s | |TV Dec [place]: 1.69 m/s2 | |TV Dec Time: 356.97 ms | |TV E Andrew: 0.60 m/s | |TV E/A Ratio: 2.66 | | | |Dolly Pusher: | |Authenticated by: Yaquelin Sanchez MD | |Report Date/Time: 01-13-2014 19:17:49 | | | |IMPRESSION: | |1. Overall left ventricular systolic function is normal with, an EF between 65 - 70 %. | |2. There is qryg-ew-oepwpasd aortic regurgitation. | |3. Moderate tricuspid regurgitation [...] EXTERNAL | | | | performed at [facility] | | LAB | | | | [facility];[place], [place] | | | | | | [address] | | | | + + + [...] | | | | | | ACUTE SC Testing | | | | | | performed at [facility] | | | | | | [facility];[place], [place] | | | | | | [address] | | | | + + + [...] EXTERNAL | | | | performed at [facility];[address] | | LAB | | | [address];[place], [place] | | | | | | [address] | | | | + + + [...] EXTERNAL | | | | performed at [facility];[address] | | LAB | | | | [facility];[place] | | | | | | [address] | | | | + + + [...] | | | | | | ACUTE SC Testing | | | | | | performed at [facility];[address] | | | | | | [address];[place], [place] | | | | | | [address] | | | | + + + [...] EXTERNAL | | | | performed at [facility];[address] | | LAB | | | | [address];[place] | | | | | | [address] | | | | + + + [...] EXTERNAL | | | | performed at [facility];[address] | | [address] | | | [address];[place] | | | | | | [address] | | | | + + + + + + | CK-MB Index | UNABLE TO | | EXTERNAL | | | | CALCULATEComment: | | LAB | | | | Testing performed at | | | | | | [facility];[address];[place] [address] | | | | + + + [...] | | | | | | ACUTE SC Testing | | | | | | performed at [facility];[id number] | | | | | | [address];[place], [place] | | | | | | [address] | | | | + + + [...] EXTERNAL | | | | performed at [facility];[address] | | LAB | | | [address];[place] | | | | | | [address] | | | | + + + + + + | RED CELL | 4.08Comment: Testing | 3.70 - 5.10 | EXTERNAL | | | COUNT | performed at [facility];[address] | [address] | LAB | | | | [address];[place] | | | | | | [address] | | | | + + + + + + | Hgb | 12.5Comment: Testing | 11.3 - 15.5 | EXTERNAL | | | | performed at [facility];888 | g/dL | LAB | | | | [address];[place] | | | | | | [address] | | | | + + + + + + | Hematocrit, | 35.9Comment: Testing | 34.0 - 46.0 % | EXTERNAL | | | POC | performed at [facility];888 | | LAB | | | | [address];[place] | | | | | | [address] | | | | + + + + + + | MCV | 87.9Comment: Testing | 80.0 - 100.0 fl | EXTERNAL | | | | performed at [facility];888 | | LAB | | | | [address];[place] | | | | | | [address] | | | | + + + + + + | MCH | 30.6Comment: Testing | 27.0 - 34.0 pg | EXTERNAL | | | | performed at [facility];888 | | LAB | | | | [address];[place] | | | | | | [address] | | | | + + + + + + | MCHC | 34.8Comment: Testing | 32.0 - 35.5 | EXTERNAL | | | | performed at [facility];888 | g/dL | LAB | | | | [address];[place] | | | | | | [address] | | | | + + + + + + | RDW-CV | 40.7Comment: Testing | 37 - 53 fl | EXTERNAL | | | | performed at [facility];888 | | LAB | | | | [address];[place] | | | | | | [address] | | | | + + + + + + | Platelet | 216Comment: Testing | 150 - 400 K/uL | EXTERNAL | | | Count | performed at [facility];888 | | LAB | | | Plasma | [address];[place] | | | | | | [address] | | | | + + + + + + | MPV | 8.3Comment: Testing | fl | EXTERNAL | | | | performed at [facility];888 | | LAB | | | | [address];[place] | | | | | | [address] | | | | + + + + + + | Differentia | AUTOMATEDComment: | | EXTERNAL | | | l Type | Testing performed at | | LAB | | | | [facility];[address];[place] [address] | | | | + + + + + + | % Segmented | 73.3Comment: Testing | % | EXTERNAL | | | | performed at [facility];888 | | LAB | | | Neutrophils | [address];[place] | | | | | | [address] | | | | + + + + + + | % | 21.6Comment: Testing | % | EXTERNAL | | | Lymphocytes | performed at [facility];888 | | LAB | | | | [address];[place] | | | | | | [address] | | | | + + + + + + | % Monocytes | 4.4Comment: Testing | % | EXTERNAL | | | | performed at [facility];888 | | LAB | | | | [address];[place] | | | | | | [address] | | | | + + + + + + | % | 0.2Comment: Testing | % | EXTERNAL | | | Eosinophils | performed at [facility];888 | | LAB | | | | [address];[place] | | | | | | [address] | | | | + + + + + + | % Basophils | 0.5Comment: Testing | % | EXTERNAL | | | | performed at [facility];888 | | LAB | | | | [address];[place] | | | | | | [address] | | | | + + + + + + | Absolute | 5.2Comment: Testing | 1.9 - 7.4 K/uL | EXTERNAL | | | Segmented | performed at [facility];888 | | LAB | | | Neutrophils | [address];[place] | | | | | | [address] | | | | + + + + + + | Absolute | 1.5Comment: Testing | 1.0 - 3.9 K/uL | EXTERNAL | | | Lymphocytes | performed at [facility];888 | | LAB | | | | [address];[place] | | | | | | [address] | | | | + + + + + + | Absolute | 0.3Comment: Testing | 0 - 0.8 K/uL | EXTERNAL | | | Monocytes | performed at [facility];888 | | LAB | | | | [address];[place] | | | | | | [address] | | | | + + + + + + | Absolute | 0.0Comment: Testing | 0 - 0.5 K/uL | EXTERNAL | | | Eosinophils | performed at [facility];888 | | LAB | | | | [address];[place] | | | | | | [address] | | | | + + + + + + | Absolute | 0.0Comment: Testing | 0 - 0.1 K/uL | EXTERNAL | | | Basophils | performed at [facility];[address] | | LAB | | | | [address];[place], [place] | | | | | | [address] | | | | + + + [...] EXTERNAL | | | | performed at [facility];888 | uIU/mL | LAB | | | | [address];[place], [place] | | | | | | [address] | | | | + + + [...] | | | (REF) | performed at [facility] | | LAB | | | | [address];[place], [place] | | | | | | [address] | | | | + + + [...] EXTERNAL | | | | performed at [facility] | | LAB | | | | [address];[place] | | | | | | [address] | | | | + + + [...] EXTERNAL | | | | performed at [facility];888 | | LAB | | | | [address];[place], [place] | | | | | | [address] | | | | + + + [...] EXTERNAL | | | | performed at [facility] | | LAB | | | | [address];[place] | | | | | | [address] | | | | + + + [...] EXTERNAL | | | | performed at [facility];8 | | LAB | | | | [facility];[place], [place] | | | | | | [address] | | | | + + + [...] EXTERNAL | | | | performed at [facility];888 | mmol/L | LAB | | | | [address];[place] | | | | | | [address] | | | | + + + + + + | K | 3.9Comment: Testing | 3.5 - 4.9 | EXTERNAL | | | | performed at [facility];888 | mmol/L | LAB | | | | [address];[place] | | | | | | [address] | | | | + + + + + + | Cl | 112 (H)Comment: Testing | 99 - 109 mmol/L | EXTERNAL | | | | performed at [facility];888 | | LAB | | | | [address];[place] | | | | | | [address] | | | | + + + + + + | CO2 | 24Comment: Testing | 23 - 32 mmol/L | EXTERNAL | | | | performed at [facility];888 | | LAB | | | | [address];[place] | | | | | | [address] | | | | + + + + + + | Anion Gap | 11Comment: Testing | 5 - 20 mmol/L | EXTERNAL | | | | performed at [facility];888 | | LAB | | | | [address];[place] | | | | | | [address] | | | | + + + + + + | Glucose, | 109 (H)Comment: Testing | 65 - 99 mg/dL | EXTERNAL | | | Fasting | performed at [facility];888 | | LAB | | | | [address];[place] | | | | | | [address] | | | | + + + + + + | BUN | 11Comment: Testing | 8 - 25 mg/dL | EXTERNAL | | | | performed at [facility];888 | | LAB | | | | [address];[place] | | | | | | [address] | | | | + + + + + + | Creatinine | 0.64Comment: Testing | 0.50 - 1.00 | EXTERNAL | | | | performed at [facility];888 | mg/dL | LAB | | | | [address];[place] | | | | | | [address] | | | | + + + + + + | BUN/Creatin | 17Comment: Testing | | EXTERNAL | | | ine Ratio | performed at [facility];888 | | LAB | | | | [address];[place] | | | | | | [address] | | | | + + + + + + | Calcium | 8.3 (L)Comment: Testing | 8.5 - 10.2 | EXTERNAL | | | | performed at [facility];888 | mg/dL | LAB | | | | [address];[place] | | | | | | [address] | | | | + + + [...] | | | | | | at [facility];[address];[place] [address] | | | | + + + [...] | | | | | ONLY, -COMPUTER (112), | | | | | | medical editor Jose Enrique Fernandez | | | [...]
--- OUTSIDE RECORDS SUMMARY | ~2019-08-08 | XMS | Clinical Summary ---
Demographics + + + | Address | [address] | | | [place] [address] | + + + | Home Phone | | + + + | Preferred Language | Unknown | + + + | Marital Status | | + + + | Sikh Affiliation | Unknown | + + + | Race | Unknown | + + + | Ethnic Group | Unknown | + + + Author + + + | Author | [facility] | | | and [place] | + + + | Organization | [facility] | | | [...] [place] | | | | | [address] | | + + + + + | Cyndy Mcneal | ECON | [place] | | | | | [address] | | + + + + + Care Team Providers + +------+ + | Care Python Consultant Name | Role | Phone | + +------+ + | Cuate Simons MD | PCP | | + +------+ + Allergies No Known Allergies Medications + + + +---------+------+------+-------+ | Medication | Sig | Dispensed | Refills | Star | End | Statu | | | | | | t | Date | s | | | | | | Date | | | + + + +---------+------+------+-------+ | potassium chloride | Take 20 mEq by mouth | | 0 | | | Activ | | (K-DUR) 20 mEq ER | Daily. | | | | | e | | tablet | | | | | | | + + + +---------+------+------+-------+ | omeprazole | Take 20 mg by mouth | | 0 | | | Activ | | (PRILOSEC) 20 mg | every morning | | | | | e | | capsule | (before breakfast). | | | | | | + + + +---------+------+------+-------+ | aspirin 81 mg EC | Take 81 mg by mouth | | 0 | | | Activ | | tablet | Daily. | | | | | e | + + + +---------+------+------+-------+ | acetaminophen | Take 1-2 tablets by | 100 | 0 | 06/04 | | Activ | | (TYLENOL) 325 mg | mouth every 4 hours | tablet | | 2/20 | | e | | tablet | as needed for Pain | | | 15 | | | | | (or fever >= 38.3 C | | | | | | | | (101.5 F)). | | | | | | + + + +---------+------+------+-------+ | losartan (COZAAR) | Take 1 tablet by | 10 | 0 | 06/04 | | Activ | | 25 mg tablet | mouth Daily. | tablet | | 2/20 | | e | | | | | | 15 | | | + + + +---------+------+------+-------+ Active Problems + + + | Problem | Noted Date | + + + | Chest pain | 06/14/2015 | + + + | GERD (gastroesophageal reflux disease) | 06/14/2015 | + + + | Hypertension | 06/14/2015 | + + + Social History + +-------+ [...] recent travel history available. | + + Last Filed Vital Signs + + + [...] | | + + + + + Plan of Treatment + + + + + | Health Maintenance | Due Date | Last Done | Comments | + + + + + | Vaccine: | | | | | Dtap/Tdap/Td (1 - | 3 | | | | Tdap) | | | | + + + + + | Vaccine: Zoster (1 | | | | | of 2) | 2 | | | + + + + + | Vaccine: | | | | | Pneumococcal 65+ (1 | 7 | | | | of 2 - PCV13) | | | | + + + + + | Vaccine: Influenza | | | | | (#1) | 9 | | | + + + + + Results Not on filefrom Last 3 Months Insurance + +--------+ +--------+ +---------+--------+ | Payer | Benefi | Subscriber | Effect | Phone | Address | Type | | | t Plan | ID | geneva | | | | | | / | | Dates | | | | | | Group | | | | | | + +--------+ +--------+ +---------+--------+ | MEDICARE | MEDICA | [id number] | 04/04/19 | [phone] | | Medica | | | RE | | 97-Pre | 5 | | re | | | PART A | | sent | | | | | | AND B | | | | | | + +--------+ +--------+ +---------+--------+ | [employer] | TRANSA | [id number] | 06/02/ | | | Indemn | | INSURANCE | MERICA | | 2015-P | | | ity | | | LIFE | | resent | | | | | | [place] | | | | | | + +--------+ +--------+ +---------+--------+ + +--------+ +--------+ + + | Guarantor Name | Accoun | Relation to | Date | Phone | Billing Address | | | t Type | Patient | of | | | | | | | | | | + +--------+ +--------+ + + | Lala Huerta | Person | Self | [birth year] | [address] | | | al/Fam | | 1930 | [phone], | | | [place] | | | [address] (Home) | [place] [address] | + +--------+ +--------+ + + Advance Directives + + + + + | Type | Date Recorded | Patient | Explanation | | | | Fund Raiser | | + + + + + | Power of | | | Nirosa m is POA copy at home | | Valet Runner | | | | + + + + + | Advance | 06/14/2015 | | Copy with Niece | | Directive | 3:50 PM | | | + + + + + + + + + + | Code Status | Date | Date | Comments | | | Activated | Inactivated | | + + + + + | Full Code | 06/14/2015 | 06/15/2015 | | | | 4:33 PM | 5:33 PM | | + + + + +
--- OUTSIDE RECORDS SUMMARY | ~2019-08-08 | XMS | Encounter Summary ---
Demographics + + + | Address | [address] | | | [place] [address] | + + + | Home Phone | | + + + | Preferred Language | Unknown | + + + | Marital Status | | + + + | Protestant Affiliation | Unknown | + + + | Race | Unknown | + + + | Ethnic Group | Unknown | + + + Author + + + | Author | [facility] | | | and [place] | + + + | Organization | [facility] | | [...] [place] | | | | | [address] | | + + + + + | Cyndy Mcneal | ECON | [place] | | | | | [address] | | + + + + + Care Team Providers + +------+ + | Care Demonstrator Sewing Techniques Name | Role | Phone | + +------+ + PCP | Unavailable | + +------+ + Encounter Details +--------+ + + + + | Date | Type | Department | Care Team | Description | +--------+ + + + + | 02/22/ | Hospital | [facility] | | | | 2001 - | Encounter | [facility] | | | | | | [facility] | | | | 05/23/ | | [place] | | | | 2001 | | [address] | | | | | | [phone] | | | +--------+ + + + [...]
--- OUTSIDE RECORDS SUMMARY | ~2019-08-08 | XMS | Encounter Summary ---
Demographics + + + | Address | [address] | | | [place] [address] | + + + | Home Phone | | + + + | Preferred Language | Unknown | + + + | Marital Status | | + + + | Faith Affiliation | Unknown | + + + | Race | Unknown | + + + | Ethnic Group | Unknown | + + + Author + + + | Author | [facility] | | | and [place] | + + + | Organization | [facility] | | [...] [place] | | | | | [address] | | + + + + + | Cyndy Mcneal | ECON | [place] | | | | | [address] | | + + + + + Care Team Providers + +------+ + | Care Client Customer Manager Name | Role | Phone | + +------+ + PCP | Unavailable | + +------+ + Encounter Details +--------+ + + + + | Date | Type | Department | Care Team | Description | +--------+ + + + + | 02/03/ | Hospital | [facility] | | | | 2008 | Encounter | MED CTR XRAY [address] | | | | | | [address] [place] | | | | | | [place] [address] | | | | | | [phone] | | | +--------+ + + + [...]
--- OUTSIDE RECORDS SUMMARY | ~2019-08-08 | XMS | Encounter Summary ---
Demographics + + + | Address | [address] | | | [place] [address] | + + + | Home Phone | | + + + | Preferred Language | Unknown | + + + | Marital Status | | + + + | Adventism Affiliation | Unknown | + + + | Race | Unknown | + + + | Ethnic Group | Unknown | + + + Author + + + | Author | [facility] | | | and [place] | + + + | Organization | [facility] | | [...] [place] | | | | | [address] | | + + + + + | Cyndy Mcneal | ECON | [place] | | | | | [address] | | + + + + + Care Team Providers + +------+ + | Care Janitor And Cleaner Name | Role | Phone | + +------+ + | Cuate Simons MD | PCP | | + +------+ + Reason for Visit +--------+ + | Reason | Comments | +--------+ + | Other | Letter of recomendation | +--------+ + Encounter Details +--------+ + + + + | Date | Type | Department | Care Team | Description | +--------+ + + + + | 06/21/ | Telephone | [facility] | Santino Arroyo | Other (Letter of | | 2014 | | SURGERY [address] | MD Pee, FACS [address] | recomendation) | | | | [place], [place] | [address] [facility] | | | | | [address] | [place] [address] | | | | | [phone] | [phone] | | | | | | | [...]
--- OUTSIDE RECORDS SUMMARY | ~2019-08-08 | XMS | Clinical Summary ---
Demographics + + + | Address | [address] | | | [place] [address] | + + + | Home Phone | | + + + | Preferred Language | Unknown | + + + | Marital Status | | + + + | Sabianist Affiliation | 1077 | + + + | Race | Unknown | + + + | Ethnic Group | Unknown | + + + Author + + + | Author | [facility] (Historical as of | | | 03-20-19) | + + + | Organization | [facility] (Historical as of | | | 03-20-19) [...] Team Providers + +------+ + | Care Security Sales Consultant Name | Role | Phone | [...] +------+-------+ + | MEDICARE | MEDICA | [id number] | | | [address] | | | RE | | | | [place] [address] | | | IP-OP | | | | | + +--------+ +------+-------+ + | COMMERCIAL OTHER | COMMER | [id number] | | | | | | CIAL [...] | | al/Fam | | 1930 | [phone] | | | [place] | | | [phone] | [place] | | | | | | | [address] | + +--------+ +--------+ + +
--- OUTSIDE RECORDS SUMMARY | ~2019-08-08 | XMS | Encounter Summary ---
Demographics + + + | Address | [address] | | | [place] [address] | + + + | Home Phone | | + + + | Preferred Language | Unknown | + + + | Marital Status | | + + + | Tenriism Affiliation | Unknown | + + + | Race | Unknown | + + + | Ethnic Group | Unknown | + + + Author + + + | Author | [facility] | | | and [place] | + + + | Organization | [facility] | | | [...] [place] | | | | | [address] | | + + + + + | Cyndy Mcneal | ECON | [place] | | | | | [address] | | + + + + + Care Team Providers + +------+ + | Care Transportation Clerk Name | Role | Phone | + [...] + + | 06/14/ | Emergency | [facility] | Tim Bland, | Chest pain at rest | | 2015 - | | MED CTR ICU [address] | [address] | (Primary Dx); Chest | | | | [place], | [place], [place] | pain, unspecified | | 06/15/ | | [place] [address] | [address] | chest pain type; | | 2014 | | [phone] | | Gastroesophageal | | | | | Charles Jimenez MD | reflux disease, | | | | | [address] | esophagitis presence | | | | | [place], [place] | not specified; | | | | | [address] | Essential | | | | | | hypertension | | | | | Pipo Juarez MD | | | | | | [address] | | | | | | [place] [...] might be different fro m the original. [place], [place] DISCHARGE SUMMARY Pt. Name/Age/: Lala Huerta [...] function. LVEF by gated SPECT 80 %. [facility] records 2013 Echo mild to mod AR LV 65-70 2013 Dopscan Left carotid 50-69% 2013 near syncope eval 2013 sinus arrythmia Addendum (more records from [place]) May 2015 carotid dopscan stable 16-49% bilat [...] DR Simons for next week Contact information: [address] [place] [address] Condition: Patient being discharged with condition improved [...] signed by: Pipo Juarez MD, 06/15/2015 14:23 [facility] Reference information. This is NOT part of the patient's formal assessment section. In the assessment or plan section of notes the author may date some of the subsections with a number such as "23" or "23rd" to indicate the date of that entry or event. In the example below the 1st line is the original entry and the subsequent lines indicate flowing updates to the subsection: Example assessment subsection (such as CHF or CP or Pneumonia) 23 Patient is improved today with resolution of symptoms 24th Worse with recurrence of symptoms requiring further testing Portions of this chart may have been created with Intoloop voice recognition software. Occasi onal wrong-word or [...] attachments cannot be sent through Care Everywhere.LOSARTAN (TOMAS JENNINGS)BLOOD PRESSURE, DISCHARGE INSTRUCTIONS: TAKING YOUR (BOTSWANAN)BLOOD PRESSURE, TAKING YOUR (BOTSWANAN)HIGH BLOOD PRESSURE, YOUR RISK FACTORS (BOTSWANAN)ACID REFLUX, WHAT IS (BOTSWANAN)docum ented in this encounter Medications at Time [...] might be different fro m the original. [facility], [place] PROGRESS NOTE Patient: Lala Huerta : 1930: Age: 85 y.o. MedRec: [id number] PCP: Cuate Simons MD Admission date: 06/14/2015 [...] Pipo Juarez MD 30 mL at 06/15/15 0030 aspirin EC tablet 81 mg 81 mg Oral Daily Pipo Juarez MD 81 mg at 06/15/15 0904 docusate sodium (COLACE) capsule 100 mg 100 mg Oral BID PRN Pipo Juarez MD nitroglycerin (NITROSTAT) SL tablet 0.4 mg 0.4 mg Sublingual Q5 Min PRN Inder P Ree an, DO 0.4 mg at 06/15/15 0412 ondansetron (ZOFRAN ODT) disintegrating tablet 4 mg [...] <0.01 No results for input(s): PHART, PO2ART, BAT1KZS, YVF5OBH, BEART, E3RXVVBH in the last 168 h ours. No results for input(s): SPECSOURCE, PHPOCB, PCO2, PO2, HCO3, TCO2, BEART, [id number] in the last 168 hours. No results for input(s): IRON, TIBC, PCTSAT, FERRITIN, TSH, NOUOUUSG80, FOLATE in the last 168 hours. No [...] Procedure Component Value Units Date/Time Culture, MRSA [[id number]] Collected: 06/14/151714 Order Status: Sent Lab Status: In process Updated: 06/14/151719 Specimen Information: Respiratory / Nares Radiology results [...] findings. A preliminary report was sent by [employer] o n 06/14/2015 at 93 7:00 PM [...] to auscultation effort not labored Chest wall glory hole tender Abdominal + bowel sounds, soft, less tender [...] function. LVEF by gated SPECT 80 %. [facility] records 2013 Echo mild to mod AR LV 65-70 2013 Dopscan Left carotid 50-69% 2013 near syncope eval 2013 sinus arrythmia Addendum (more records from [place]) May 2015 carotid dopscan stable 16-49% bilat [...] with him Pipo Juarez MD 06/15/2015 11:09 [facility] Reference information. This is NOT part of [...] this chart may have been created with Intoloop voice recognition software. Occasi onal wrong-word or sound-alike substitutions may have occurred due to the inherent schuster itations of voice recognition software. Please read the chart carefully and recognize, using context, where these substitutions have occurred Lesli Cheng R N - 06/14/2015 7:05 PM PSTTim/CT notified of CT Angio orders. documented in this encounter Plan of Treatment Not [...] by: Filiberto | | | MD Carmen [facility] 06/15/2015, 12:22 | | + + + [...] | | | Lavender | | | [facility] | | | Top Tube | [...] [address] | [place] | [phone] | | [facility] | | [address] | | | - LABORATORY | | | | + + + + + Lipid Panel (06/15/2015 4:32 AM PST) + + + + + + | Component | Value | Ref Range | Performed | Pathologist | | | | | At | Signature | + + + + + + | Triglycerid | 78 | 35 - 160 mg/dL | [facility] | | | es | | | [facility] | | [...] Reference Range as of | | [facility] | | | | April 13, 2015 | | MEDICAL | | | | Values may be 10-20% | | CENTER - | | | | lower with new, | | LABORATORY | | | | standardized method. | | | | + + + + + + | Chol/HDL | 3.7 | | [facility] | | | Ratio | | | [facility] | | | | | | MEDICAL | | | | | | CENTER - | | | | | | LABORATORY | | + + + + + + | LDL, | 145 (H) | <=130 mg/dL | [facility] | | | Calculated | | | [facility] | | [...] | + + + + + | [facility] | [address] | [place] | [phone] | | [facility] | | [address] | | | - LABORATORY | | [...] | | | | | | [employer] | | | | | [...] | + + + + + | [facility] | [address] | [place] | [phone] | | [facility] | | [address] | | | - LABORATORY | | [...] | | | | | | [employer] | | | | | [...] ST. | [address] | [place], [place] | [phone] | | [facility] | | [address] | | | - LABORATORY | | [...] findings. A preliminary report was sent by [employer] | | | on 06/14/2015 at 93 [...] preliminary | | report was sent by [employer] on 06/14/2015 at 93 7:00 PMwith no [...] | |A preliminary report was sent by [employer] on 06/14/2015 at 93 7:00 PM | [...] Performed At | + + + | [facility] ECHOCARDIOGRAM REPORT | | | STUDY DATE: [...] | | Signed by: Filiberto Morales MD [facility] 06/14/2015 20:51 | | | Instructor Nurse: Brett Salgado, RDCS, RDMS, RVT | | [...] | + + + + + | [facility] | [address] | [place] | [phone] | | [facility] | | [address] | | | - LABORATORY | | | | + + + + + D-Dimer (06/14/2015 4:43 PM PST) + + + + + + | Component | Value | Ref Range | Performed | Pathologist | | | | | At | Signature | + + + + + + | D-Dimer | 0.58 (H)Comment: This | <=0.50 ug/ml | [facility] | | | Quantitativ | quantitative D-Dimer | | [facility] | | | e | assay has [...] | + + + + + | [facility] | [address] | [place] | [phone] | | [facility] | | [address] | | | - LABORATORY | | [...] | | | | mmol/L | [facility] | | | | | | MEDICAL | | | | | | CENTER - | | | | | | LABORATORY | | + + + + + + | K | 3.7 | 3.5 - 5.1 | [facility] | | | | | mmol/L | [facility] | | | | [...] | | | | mg/dL | [facility] | | | | | | MEDICAL | | | | | | CENTER - | | | | | | LABORATORY | | + + + + + + | eGFR if not | >60Comment: GLOMERULAR | >=60 | [facility] | | | | FILTRATION | mL/min/1.73m2 | [facility] | | | LIBERIAN | RATE,ESTIMATED | | MEDICAL | | | | mL/min/1.72r6Upjg than | | CENTER - | | [...] | 9.7 | 8.3 - 10.5 | [facility] | | | | | mg/dL | [facility] | | | | | | MEDICAL | | | | | | CENTER - | | | | | | LABORATORY | | + + + + + + | Albumin | 4.6 | 3.2 - 5.0 g/dL | [facility] | | | | | | [facility] | | | | | | MEDICAL | | | | | | CENTER - | | | | | | LABORATORY | | + + + + + + | Bilirubin | 0.9 | 0.1 - 1.5 mg/dL | [facility] | | | Total | | | [...] | | ine Ratio | | | [facility] | | [...] [address] | [place] | [phone] | | [facility] | | [address] | | | - LABORATORY | | [...] | | | | | M/uL | [facility] | | | | | | MEDICAL | | | | | | CENTER - | | | | | | LABORATORY | | + + + + + + | Hemoglobin | 15.4 | 11.5 - 16.0 | [facility] | | | | | g/dL | [facility] | | | | [...] | | | | g/dL | [facility] | | | | [...] | Neutrophils | | K/uL | [facility] | | | | | | MEDICAL | | | | | | CENTER - | | | | | | LABORATORY | | + + + + + + | Absolute | 3.00 | 0.60 - 3.20 | [facility] | | | Lymphocytes | | K/uL | [facility] | | | | | | MEDICAL | | | | | | CENTER - | | | | | | LABORATORY | | + + + + + + | Absolute | 0.60 | 0.00 - 1.00 | [facility] | | | Monocytes | | K/uL | [facility] | | | | | | MEDICAL | | | | | | CENTER - | | | | | | LABORATORY | | + + + + + + | Absolute | 0.20 | 0.00 - 0.40 | [facility] | | | Eosinophils | | K/uL | [facility] | | | | | | MEDICAL | | | | | | CENTER - | | | | | | LABORATORY | | + + + + + + | Absolute | 0.10 | 0.00 - 0.10 | [facility] | | | Basophils | | K/uL | [facility] | | | | [...] + | [facility] | [address] | [place] | [phone] | | [facility] | | [address] | | | - LABORATORY | | [...] | | | | | | [employer] | | | | | [...] + | [facility] | [address] | [place] | [phone] | | [facility] | | [address] | | | - LABORATORY | | [...] | | | | CHRISTIAN GARCIAS MD ([id number]) | | | | | | on [...] Diagnosis | + + | Chest pain at rest - Primary Chest pain, unspecified | + + | Chest pain, unspecified chest pain type | + + | Gastroesophageal reflux disease, esophagitis presence not specified | + + | Essential hypertension Unspecified essential hypertension | + + | Chest pain Chest pain, unspecified | + + | Hypertension Unspecified essential [...] | | | | 06/14/15 at 1633, Shake well., | | | | | | + +--------+ +--------+------+------+ +---+---+ | | | +---+---+ + +-------+ +-------+---+---+ | aminophylline injection 75 mg | Given | 06/15/20 | 75 mg | | | | 75 mg, Intravenous, ONCE PRN, | | 15 8:32 | | | | | protocol, Starting Libby 06/15/15 | | AM PST | [...] | | | | | | | Libby 06/15/15 at 0815, For 1 dose, | [...] | | | | Chest pain, Starting Libby 06/15/15 | | | | | | [...] | | | | Starting 06/14/15 at 1633, | | | | [...] | | | | | | Starting Libby 06/15/15 at 1146, | | | | [...] | | | | | | Starting Libby 06/15/15 at 0752, | | | | | | | For 1 dose, Nuclear Medicine | | | | | | + +-------+ + +---+---+ +---+---+ | | | +---+---+ documented in this encounter
--- OUTSIDE RECORDS SUMMARY | ~2019-08-08 | XMS | Encounter Summary ---
Demographics + + + | Address | [address] | | | [place] [address] | + + + | Home Phone | | + + + | Preferred Language | Unknown | + + + | Marital Status | | + + + | Congregational Affiliation | Unknown | + + + | Race | Unknown | + + + | Ethnic Group | Unknown | + + + Author + + + | Author | [facility] | | | and [place] | + + + | Organization | [facility] | | | and [...] [place] | | | | | [address] | | + + + + + | Cyndy Mcneal | ECON | [place] | | | | | [address] | | + + + + + Care Team Providers + +------+ + | Care Rhythmic Gymnastics Coach Name | Role | Phone | + +------+ + PCP | Unavailable | + +------+ + Encounter Details +--------+ + + + + | Date | Type | Department | Care Team | Description | +--------+ + + + + | 02/22/ | Hospital | [facility] | | | | 2001 - | Encounter | [facility] | | | | | | CENTER [address] | | | | 05/23/ | | [place] | | | | 2001 | | [address] | | | | | | [phone] | | | +--------+ + + + [...]
--- OUTSIDE RECORDS SUMMARY | ~2019-08-08 | XMS | Clinical Summary ---
Demographics + + + | Address | [address] | | | [place] [address] | + + + | Home Phone | | + + + | Preferred Language | Unknown | + + + | Marital Status | | + + + | Alevism Affiliation | 1077 | + + + | Race | Unknown | + + + | Ethnic Group | Unknown | + + + Author + + + | Author | [employer] (Historical as of | | | 03-20-19) | + + + | Organization | [facility] (Historical as of | | | 03-20-19) [...] Team Providers + +------+ + | Care Poultry Killer Name | Role | Phone | + [...] +------+-------+ + | MEDICARE | MEDICA | [id number] | | | [address] | | | RE | | | | [place] [address] | | | IP-OP | | | | | + +--------+ +------+-------+ + | COMMERCIAL OTHER | COMMER | [id number] | | | | | | CIAL [...] | | al/Fam | | 1930 | [phone] | [address] | | | [address] | | | [phone] | [place] | | | | | | | [address] | + +--------+ +--------+ + +
--- OUTSIDE RECORDS SUMMARY | ~2019-08-08 | XMS | Clinical Summary ---
Demographics + + + | Address | [address] | | | [place] [address] | + + + | Home Phone | | + + + | Preferred Language | Unknown | + + + | Marital Status | | + + + | Worship Affiliation | Unknown | + + + | Race | Unknown | + + + | Ethnic Group | Unknown | + + + Author + + + | Author | [facility] | | | and [place] | + + + | Organization | [facility] | | [...] [place] | | | | | [address] | | + + + + + | Cyndy Mcneal | ECON | [place] | | | | | [address] | | + + + + + Care Team Providers + +------+ + | Care Water Quality Tester Name | Role | Phone | + [...] +--------+ +---------+--------+ | MEDICARE | MEDICA | [id number] | 04/04/19 | [phone] | | Medica | | | RE | | 97-Pre | 5 | | re | | | PART A | | sent | | | | | | AND B | | | | | | + +--------+ +--------+ +---------+--------+ | [employer] | TRANSA | [id number] | 06/02/ | | | Indemn | [...] | | | 2 (Home) | [place] [address] | + +--------+ +--------+ + + Advance Directives + + + + + | Type | Date Recorded | Patient | Explanation | | | | Resident Care Assistant | | + + + + + | Power of | | | Nirosa m is POA copy at home | | [place] Seal | | | | + + + [...]
--- OUTSIDE RECORDS SUMMARY | ~2019-08-08 | XMS | Encounter Summary ---
Demographics + + + | Address | [address] | | | [place] [address] | + + + | Home Phone | | + + + | Preferred Language | Unknown | + + + | Marital Status | | + + + | Baptist Affiliation | Unknown | + + + | Race | Unknown | + + + | Ethnic Group | Unknown | + + + Author + + + | Author | [facility] | | | and [place] | + + + | Organization | [facility] | | | and [place] | + + + | Address | Unknown | + + + | Phone | Unavailable | + + + Support + + + + + | Name | Relationship | Address | Phone | + + + + + | aLyne Mcgarry | ECON | [address] | | | | | [place] | | | | | [address] | | + + + + + | Cyndy Mcneal | ECON | [place] | | | | | [address] | | + + + + + Care Team Providers + +------+ + | Care Barometers Calibrator Name | Role | Phone | + [...] + + | 06/21/ | Telephone | [facility] | Santino Arroyo | Other (Letter of | | 2014 | | SURGERY [address] | MD Pee, FACS [address] | recomendation) | | | | [place], [place] | [facility] | | | | | [address] | [place] [address] | | | | | [phone] | [phone] | | | | | | | [...]
--- OUTSIDE RECORDS SUMMARY | ~2019-08-08 | XMS | Encounter Summary ---
Demographics + + + | Address | [address] | | | [place] [address] | + + + | Home Phone [...] Author | [facility] | | [...] [place] | | | | | [address] | | + + + + + | Cyndy Mcneal | ECON | [place] | | | | | [address] | | + + + + + Care Team Providers + +------+ + | Care Drawbench Operator Name | Role | Phone | + [...] + + | 06/14/ | Emergency | [facility] | Tim Bland, | Chest pain at rest | | 2015 - | | MED CTR ICU [address] | [address] | (Primary Dx); Chest | | | | [place], | [place], [place] | pain, unspecified | | 06/15/ | | [place] [address] | [address] | chest pain type; | | 2014 | | [phone] | | Gastroesophageal | | | | | Charles Jimenez MD | reflux disease, | | | | | [address] | esophagitis presence | | | | | [place], [place] | not specified; | | | | | [address] | Essential | | | | | | hypertension | | | | | Pipo Juarez MD | | | | | | [address] | | | | | | [...] might be different fro m the original. [place], [place] DISCHARGE SUMMARY Pt. Name/Age/: Lala Huerta [...] function. LVEF by gated SPECT 80 %. [facility] records 2013 Echo mild to mod AR LV 65-70 2013 Dopscan Left carotid 50-69% 2013 near syncope eval 2013 sinus arrythmia Addendum (more records from [place]) May 2015 carotid dopscan stable 16-49% bilat [...] DR Simons for next week Contact information: [address] [place] [address] Condition: Patient being discharged with condition improved [...] signed by: Pipo Juarez MD, 06/15/2015 14:23 [facility] Reference information. This is NOT part [...] this chart may have been created with Ariel Way voice recognition software. Occasi onal wrong-word or [...] cannot be sent through Care Everywhere.LOSARTAN (TOMAS JENNNIGS)BLOOD PRESSURE, DISCHARGE INSTRUCTIONS: TAKING YOUR (FILIPINO)BLOOD PRESSURE, TAKING YOUR (FILIPINO)HIGH BLOOD PRESSURE, YOUR RISK FACTORS (FILIPINO)ACID REFLUX, WHAT IS (FILIPINO)docum ented in this encounter Medications at Time [...] might be different fro m the original. [facility] [place] PROGRESS NOTE Patient: Lala Huerta : 1930: Age: 85 y.o. MedRec: [id number] PCP: Cuate Simons MD Admission date: 06/14/2015 [...] <0.01 No results for input(s): PHART, PO2ART, IPV6BMI, BQQ2QON, BEART, M1STVXZL in the last 168 h ours. No results for input(s): SPECSOURCE, PHPOCB, PCO2, PO2, HCO3, TCO2, BEART, MDNL1LDN in the last 168 hours. No results for input(s): IRON, TIBC, PCTSAT, FERRITIN, TSH, [id number], FOLATE in the last 168 hours. No [...] Procedure Component Value Units Date/Time Culture, MRSA [[id number]] Collected: 06/14/151714 Order Status: Sent Lab Status: [...] findings. A preliminary report was sent by edjing o n 06/14/2015 at 93 7:00 PM [...] to auscultation effort not labored Chest wall bag making machine tender Abdominal + bowel sounds, soft, less [...] function. LVEF by gated SPECT 80 %. [facility] records 2013 Echo mild to mod AR LV 65-70 2013 Dopscan Left carotid 50-69% 2013 near syncope eval 2013 sinus arrythmia Addendum (more records from [facility]) May 2015 carotid dopscan stable 16-49% bilat [...] with him Pipo Juarez MD 06/15/2015 11:09 [facility] Reference information. This is NOT part [...] this chart may have been created with Ariel Way voice recognition software. Occasi onal wrong-word or [...] by: Filiberto | | | MD Carmen [facility] 06/15/2015, 12:22 | | + + [...] [address] | [place] | [phone] | | [facility] | | [address] | | | - LABORATORY | | [...] + | [facility] | [address] | [place] | [phone] | | [facility] | | [address] | | | - LABORATORY | | [...] | | | | | | [employer] | | | | | [...] [address] | [place] | [phone] | | [facility] | | [address] | | | - LABORATORY | | [...] | | | | | | [employer] | | | | | [...] ST. | [address] | [place], [place] | [phone] | | [facility] | | [address] | | | - LABORATORY | | [...] findings. A preliminary report was sent by edjing | | | on 06/14/2015 at 93 [...] preliminary | | report was sent by edjing on 06/14/2015 at 93 7:00 PMwith no [...] | |A preliminary report was sent by edjing on 06/14/2015 at 93 7:00 PM | [...] Performed At | + + + | [facility] ECHOCARDIOGRAM REPORT | | | STUDY [...] | | Signed by: Filiberto Morales MD [facility] 06/14/2015 20:51 | | | Grooving Lathe Tender: Brett Salgado, RDCS, RDMS, RVT | | [...] [address] | [place] | [phone] | | [facility] | | [address] | | | - LABORATORY | | [...] [address] | [place] | [phone] | | [facility] | | [address] | | | - LABORATORY | | [...] mL/min/1.73m2 | [facility] | | | [place] | RATE,ESTIMATED | | MEDICAL | | | | mL/min/1.28a0Qhua than | | CENTER - | | [...] [address] | [place] | [phone] | | [facility] | | [address] | | | - LABORATORY | | [...] | | | | | M/uL | [facility] | | | | | | MEDICAL [...] + | [facility] | [address] | [place] | [phone] | | [facility] | | [address] | | | - LABORATORY | | [...] | | | | | | [employer] | | | | | [...] + | [facility] | [address] | [place] | [phone] | | [facility] | | [address] | | | - LABORATORY | | [...] | | | | CHRISTIAN GARCIAS MD ([id number]) | | | | | | on [...]
--- OUTSIDE RECORDS SUMMARY | ~2019-08-08 | XMS | Encounter Summary ---
Demographics + + + | Address | [address] | | | [place] [address] | + + + | Home Phone | | + + + | Preferred Language | Unknown | + + + | Marital Status | | + + + | Adventism Affiliation | Unknown | + + + | Race | Unknown | + + + | Ethnic Group | Unknown | + + + Author + + + | Author | [facility] | | | and [place] | + + + | Organization | [facility] | | | [...] [place] | | | | | [address] | | + + + + + | Cyndy Mcneal | ECON | [place] | | | | | [address] | | + + + + + Care Team Providers + +------+ + | Care Pool Installer Name | Role | Phone | [...] | | | | | | [place] | | | | | | [address] | | | | | | [phone] | | | +--------+ + + + [...]
[~2019-08-08 08:57] MED LIST changes: +LISINOPRIL10 MG PO; +PLAVIX75 MG PO
[2019-08-08] MEDS ORDERED: PREDNISONE20 MG PO (10:17)
[2019-08-08] MEDS ORDERED: TYLENOL WITH C1 EACH PO (10:17)
== END 2019-08-08 10:37 | disposition home or self-care (01) ==
LOC: ED 08:57
DX: M54.32 Sciatica, left side (principal); I10 Essential (primary) hypertension; K21.9 Gastro-esophageal reflux disease without esophagitis; Z86.73 Personal history of transient ischemic attack (TIA), and cerebral infarction without residual deficits; F03.90 Unspecified dementia, unspecified severity, without behavioral disturbance, psychotic disturbance, mood disturbance, and anxiety; Z79.899 Other long term (current) drug therapy; Z79.82 Long term (current) use of aspirin
CPT/HCPCS: 72100; 96374; 96375; 99283-25; J1100; J2270

== ENCOUNTER 2020-01-28 18:06 | Emergency (ER) | payer MEDICARE, OTHER ==
[~2020-01-28] VITALS: Ht 165.1 cm; Wt 50.8 kg
--- OUTSIDE RECORDS SUMMARY | ~2020-01-28 | XMS | Encounter Summary ---
Demographics + + + | Address | [address] | | | [place] [address] | + + + | Home Phone | | + + + | Preferred Language | Unknown | + + + | Marital Status | | + + + | Gnosticism Affiliation | Unknown | + + + | Race | Unknown | + + + | Ethnic Group | Unknown | + + + Author + + + | Author | [facility] | | | and [place] | + + + | Organization | [facility] | | | and [place] | + + + | Address | Unknown | + + + | Phone | Unavailable | + + + Support + + + + + | Name | Relationship | Address | Phone | + + + + + | Layne Mcgarry | ECON | [address] | | | | | [place] | | | | | [address] | | + + + + + | Cyndy Mcneal | ECON | [place] | | | | | [address] | | + + + + + Care Team Providers + +------+ + | Care Bridge Carpenter Name | Role | Phone | + +------+ + | Cuate Simons MD | PCP | | + +------+ + Reason for Visit + + + | Reason | Comments | + + + | Chest Pain | | + + + Auth/Cert +--------+--------+ + + + + | Status | Reason | Specialty | Diagnoses / | Referred By | Referred To | | | | | Procedures | Contact | Contact | +--------+--------+ + + + + | | | | Diagnoses | | | | | | | Essential | | | | | | | hypertension | | | | | | | Chest pain | | | | | | | at rest | | | | | | | Chest pain, | | | | | | | unspecified | | | | | | | chest pain | | | | | | | type | | | | | | | Gastroesopha | | | | | | | geal reflux | | | | | | | disease, | | | | | | | esophagitis | | | | | | | presence not | | | | | | | specified | | | | | | | | | | +--------+--------+ + + + + Encounter Details +--------+ + + + + | Date | Type | Department | Care Team | Description | +--------+ + + + + | 06/14/ | Emergency | [facility] | Tim Bland, | Chest pain at rest | | 2015 - | | MED [facility] ICU [address] | [address] | (Primary Dx); Chest | | | | [place], | [place], [place] | pain, unspecified | | 06/15/ | | [place] [address] | [id number] | chest pain type; | | 2014 | | [phone] | | Gastroesophageal | | | | | Charles Jimenez MD | reflux disease, | | | | | [address] | esophagitis presence | | | | | [place], [place] | not specified; | | | | | [id number] | Essential | | | | | | hypertension | | | | | Pipo Juarez MD | | | | | | [address] | | | | | | [place], [place] | | | | | | [address] | | | | | | | | +--------+ + + + [...] on file | | + + + documented as of this encounter Last Filed Vital Signs + + + + + | Vital Sign | Reading | Time Taken | Comments | + + + + + | Blood Pressure | 159/66 | 06/15/2015 11:12 AM | | | | | PST | | + + + + + | Pulse | 75 | 06/15/2015 11:12 AM | | | | | PST | | + + + + + | Temperature | 35.6 C (96.1 F) | 06/15/2015 11:12 AM | | | | | PST | | + + + + + | Respiratory Rate | 18 | 06/15/2015 11:12 AM | | | | | PST | | + + + + + | Oxygen Saturation | 100% | 06/15/2015 11:12 AM | | | | | PST | | + + + + + | Inhaled Oxygen | - | - | | | Concentration | | | | + + + + + | Weight | 53.5 kg (117 lb 15.1 | 06/15/2015 4:00 AM | | | | oz) | PST | | + + + + + | Height | 165.1 cm (5' 5") | 06/14/2015 4:46 PM | | | | | PST | | + + + + + | Body Mass Index | 19.63 | 06/14/2015 4:46 PM | | | | | PST | | + + + + + documented in this encounter Discharge Summaries Pipo Juarez MD - 06/15/2015 2:23 PM PSTFormatting of this note might be different fro m the original. [place], [place] DISCHARGE SUMMARY Pt. Name/Age/: Lala Huerta 85 y.o. 1930 Date of Admission: 06/14/2015 Date of Discharge: 06/15/2015 Admitting Physician: Pipo Juarez MD Primary Care Provider: Cuate Simons MD Discharging Physician: Pipo Juarez MD DISCHARGE DIAGNOSES: Active Hospital Problems Diagnosis Chest pain GERD (gastroesophageal reflux disease) Hypertension Resolved Hospital Problems Diagnosis No resolved problems to display. DISCHARGE MEDICATIONS: Discharge Medications New Medications Details acetaminophen 325 mg tablet Take 1-2 tablets by mouth every 4 hours as needed for Pain (or fever >= 38.3 C (101.5 F)). aka: TYLENOL losartan 25 mg tablet Take 1 tablet by mouth Daily. aka: COZAAR Unchanged Medications Details aspirin 81 mg EC tablet Take 81 mg by mouth Daily. omeprazole 20 mg capsule Take 20 mg by mouth every morning (before breakfast). aka: priLOSEC potassium chloride 20 mEq ER tablet Take 20 mEq by mouth Daily. aka: K-DUR Discontinued Medications Naproxen Sodium 220 MG Caps HOSPITAL COURSE: Please refer to the H&P for full details and the most recent rounding rounding (progress) n ote. Principal Problem: Chest pain Active Hospital Problems Diagnosis Chest pain Does not sound cardiac, has been intermittent one year and no EKG nor troponin changes and has left chest wall tenderness that fairly well replicates pain 12th still favor chest wall vs GI. Had some sinus tachy revviewed with cards not a concern GERD (gastroesophageal reflux disease) Epig tender This could be additional source of pain 12th ditto, said no more Aleve as can cause PUD Some sinus tachy on tele reviewed with Dr Martínez, maybe sick sinus (some slow some fast) not yet need intervention Hypertension Was on Rx in past but PCP stopped norvasc due to dizzy Presumed high lipid But not tolerant of Zocor due to leg aches Carotid stenosis patient says Dr Ramirez said not severe enough for sgy TIA by Hx approx 1-2 months ago CTA this admit No PE Echo this admit IMPRESSIONS: 1. Normal left ventricular size, wall thickness and motion. Preserved left ventricular syst olic function. LVEF is 65-70%. 2. Grade 1 left ventricular diastolic dysfunction. 3. Mild aortic valve insufficiency. 4. Mild tricuspid valve regurgitation. 5. Mild pulmonary hypertension with a peak systolic pressure of 35-40 mmHg. 6. Normal IVC with normal respiratory collapse. Stress test this admit 1. Persantine EKG is normal. 2. Normal Persantine Sestamibi myocardial perfusion study with a normal left ventricular s ize and wall thickness. Preserved left ventricular systolic function. LVEF by gated SPECT 80 %. [facility] records 2013 Echo mild to mod AR LV 65-70 2013 Dopscan Left carotid 50-69% 2013 near syncope eval 2013 sinus arrythmia Addendum (more records from [place]) May 2015 carotid dopscan stable 16-49% bilat diameter reduction May 2015 CT head CTA head neck chronic microvasc changes, ventriculomegaly (mod diffuse) no sig vascular stenosis, the ventriculomegaly may be related to volume loss "however a compon ent of hydrocephalus is also possible:. Echo normal EF, borderline LVH, grade one LV diastolic dysfunction, EF 73% Code Status Full Code Medical Decision Maker She cannot come up with one DVT Prophylaxis SCD's while in bed Plan Home today if stress test negative No Aleve Consider low dose BP Rx to take should NOT choose one that can cause bradycardia Addendum stress test [place] Care Manger met with patient and spoke with DARBY whom has been trying go get patient into as sisted living and will work more on it. I spoke after stress test with PCP and her BP and she should be on something for it, I was going to go for low dose ACEI but with her on chronic KCL will use Cozaar instead and only R x 10 so she needs to followup soon with him Most recent weight: Input and output for last 24hrs: Wt Readings from Last 1 Encounters: 06/15/15 53.5 kg (117 lb 15.1 oz) I/O last 24 Hours: In: 480 [P.O.:480] Out: 1500 [Urine:1500] Vitals Ranges: Temp: [35.6 C (96.1 F)-36.9 C (98.4 F)] 35.6 C (96.1 F) Pulse: [72-101] 75 Resp: [14-21] 18 BP: (112-187)/(54-112) 159/66 mmHg Vitals: Temp: 35.6 C (96.1 F) BP: 159/66 mmHg Pulse: 75 Resp: 18 SpO2: 100 % SpO2 100 % on room air at flow rate L/min PHYSICAL EXAM: Patient seen and examined by me on discharge day PROCEDURES AND CONSULTS: See above PENDING RESULTS: DISPOSITION AND DISCHARGE INSTRUCTIONS: Follow-up Information Follow up with Cuate Simons MD. Specialty: Family Medicine Why: Needs appt to se DR Simons for next week Contact information: [address] [place] [address] Condition: Patient being discharged with condition improved stable New blood pressure pill to start tomorrow cozaar 25 mg daily Cozaar might rise your potassium so your doctor should check your blood work next week Do see your doctor next week Your stress test was OK Dr Juarez believes most of your chest pain is from chest wall pain and NOT your heart. You a lso have some epigastric tenderness so Dr Juarez would like you to talk to your Doctor about seeing a GI specialist Do NOT take aleve anymore Healthy diet Greater than 30 minutes were spent on discharge and coordination of post-hospital care. Electronically signed by: Pipo Juarez MD, 06/15/2015 14:23 [facility] Reference information. This is NOT part of the patient's formal assessment section. In the assessment or plan section of notes the author may date some of the subsections with a number such as "23" or "23" to indicate the date of that entry or event. In the example below the 1st line is the original entry and the subsequent lines indicate flowing updates to the subsection: Example assessment subsection (such as CHF or CP or Pneumonia) Patient is improved today with resolution of symptoms 24th Worse with recurrence of symptoms requiring further testing Portions of this chart may have been created with [employer] voice recognition software. Occasi onal wrong-word or sound-alike substitutions may have occurred due to the inherent schuster itations of voice recognition software. Please read the chart carefully and recognize, using context, where these substitutions have occurred documented in this encounter Discharge Instructions Instructions Pipo Juarez MD - 06/15/2015New blood pressure pill to start tomorrow coza ar 25 mg daily Cozaar might rise your potassium so your doctor should check your blood work next week Do see your doctor next week Your stress test was OK Dr Juarez believes most of your chest pain is from chest wall pain and NOT your heart. You a lso have some epigastric tenderness so Dr Juarez would like you to talk to your Doctor about seeing a GI specialist Do NOT take aleve anymore Healthy diet AttachmentsThe following attachments cannot be sent through Care Everywhere.LOSARTAN (ENGLI SH)BLOOD PRESSURE, DISCHARGE INSTRUCTIONS: TAKING YOUR (SWISS)BLOOD PRESSURE, TAKING YOUR (SWISS)HIGH BLOOD PRESSURE, YOUR RISK FACTORS (SWISS)ACID REFLUX, WHAT IS (SWISS)docum ented in this encounter Medications at Time of Discharge + + + +---------+ + + | Medication | Sig | Dispensed | Refills | Start | End Date | | | | | | Date | | + + + +---------+ + + | acetaminophen | Take 1-2 tablets by | 100 | 0 | 06/15/20 | | | (TYLENOL) 325 mg | mouth every 4 hours | tablet | | 15 | | | tablet | as needed for Pain | | | | | | | (or fever >= 38.3 C | | | | | | | (101.5 F)). | | | | | + + + +---------+ + + | aspirin 81 mg EC | Take 81 mg by mouth | | 0 | | | | tablet | Daily. | | | | | + + + +---------+ + + | losartan (COZAAR) | Take 1 tablet by | 10 | 0 | 06/15/20 | | | 25 mg tablet | mouth Daily. | tablet | | 15 | | + + + +---------+ + + | omeprazole | Take 20 mg by mouth | | 0 | | | | (PRILOSEC) 20 mg | every morning | | | | | | capsule | (before breakfast). | | | | | + + + +---------+ + + | potassium chloride | Take 20 mEq by mouth | | 0 | | | | (K-DUR) 20 mEq ER | Daily. | | | | | | tablet | | | | | | + + + +---------+ + + documented as of this encounter Progress Notes Pipo Juarez MD - 06/15/2015 11:09 AM PSTFormatting of this note might be different fro m the original. [place], [place] PROGRESS NOTE Patient: Lala Huerta : 1930: Age: 85 y.o. MedRec: [id number] PCP: Cuate Simons MD Admission date: 06/14/2015 Hospital day # : 1 Physician author: Pipo Juarez MD Today: 06/15/2015 Allergies: No Known Allergies Current Medications: Current Facility-Administered Medications Medication Dose Route Frequency Provider Last Rate Last Dose acetaminophen (TYLENOL) tablet 650 mg 650 mg Oral Q4H PRN Pipo Juarez MD aluminum & magnesium hydroxide-simethicone (MAALOX REGULAR STRENGTH) 200-200-20 mg/5 mL suspension 30 mL 30 mL Oral Q4H PRN Pipo Juarez MD 30 mL at 06/15/15 003 aspirin EC tablet 81 mg 81 mg Oral Daily Pipo Juarez MD 81 mg at 06/15/15 09 docusate sodium (COLACE) capsule 100 mg 100 mg Oral BID PRN Pipo Juarez MD nitroglycerin (NITROSTAT) SL tablet 0.4 mg 0.4 mg Sublingual Q5 Min PRN Inder Keenan an, DO 0.4 mg at 06/15/15411 ondansetron (ZOFRAN ODT) disintegrating tablet 4 mg 4 mg Oral Q6H PRN Pipo Juarez MD ondansetron (ZOFRAN) injection 4 mg 4 mg Intravenous Q6H PRN Pipo Juarez MD 4 mg at 06/15/15 0412 pantoprazole (PROTONIX) DR tablet 40 mg 40 mg Oral QAM AC Pipo Juarez MD 40 mg a t 06/15/15 0644 polyethylene glycol (MIRALAX) powder 17 g 17 g Oral Daily PRN Pipo Juarez MD potassium chloride (K-DUR) ER tablet 20 mEq 20 mEq Oral Daily Pipo Juarez MD 20 mEq at 06/15/15 0904 senna (SENOKOT) tablet 8.6 mg 8.6 mg Oral BID PRN Pipo Juarez MD Current Infusions: Objective Data Labs Recent Labs Lab 06/14/15 1642 WBC 8.7 HGB 15.4 HCT 46.4 PLT 250 NEUPCT 55.5 MONPCT 7.1 No results for input(s): PROTIME, INR in the last 168 hours. No results for input(s): PTT in the last 168 hours. Recent Labs Lab 06/14/15 1642 GLU 118* NA 144 K 3.7 CL 109 CO2 25 ANIONGAP 10 BUN 12 CREA 0.86 GFRNONAA >60 CALCIUM 9.7 ALBUMIN 4.6 TOTALPROTEIN 7.5 BILITOT 0.9 ALKPHOS 69 ALT 12 AST 21 No results for input(s): BNP in the last 168 hours. No results for input(s): MG in the last 168 hours. No results for input(s): PHOS in the last 168 hours. No results for input(s): AMYLASE, LIPASE in the last 168 hours. No results for input(s): AMMONIA in the last 168 hours. Recent Labs Lab 06/15/15 0432 06/14/15 2232 06/14/15 1642 TROPONINI <0.01 <0.01 <0.01 No results for input(s): PHART, PO2ART, PAX5QMS, QTC8ONO, BEART, H2XAKSUS in the last 168 h ours. No results for input(s): SPECSOURCE, PHPOCB, PCO2, PO2, HCO3, TCO2, BEART, ECGW9FYH in the last 168 hours. No results for input(s): IRON, TIBC, PCTSAT, FERRITIN, TSH, [id number], FOLATE in the last 168 hours. No results for input(s): ALCOHOL, ACTMN, SALICYLATE in the last 168 hours. No results for input(s): AMPHEQUAL, BARBITURATE, BENZSCR, CANNIBSCR, AMPHETAMINE, METHADSCR , OPIATESCR in the last 168 hours. Point of care glucose No results for input(s): POCGLU in the last 168 hours. Micro results (more choices using dotmicro) Microbiology Results (72 hrs) Procedure Component Value Units Date/Time Culture, MRSA [[id number]] Collected: 06/14/15 1715 Order Status: Sent Lab Status: In process Updated: 06/14/15 1720 Specimen Information: Respiratory / Nares Radiology results (more choices using dotrisresults) Ct Angiogram Pulmonary 06/15/2015 CT ANGIOGRAM PULMONARY 06/14/2015 9:03 PM HISTORY: Chest pain with elevated D Dimer. COMPARISON: None. PROTOCOL: Thin section axial images of the chest were obtained a fter uneventful administration of 55 mL Omnipaque 350. Coronal and sagittal reformations wer e acquired. FINDINGS: Neck base is normal. The heart is of normal size. Moderate coronary calcifications are present. There is mild to moderate atherosclerosis of the aorta extending into the branches. The pulmonary arteries are unremarkable. SVC is normal. No enlarged lym ph nodes are seen in the mediastinum, willy, or axilla. Trachea and esophagus demonstrate no acute findings. There is a tiny calcified nodule in the lateral aspect of the right upper l enmanuel lobe (image 34) that likely represents prior granulomatous disease. No pleural effusion or pneumothorax is seen. There are cholecystectomy clips. Chest wall structures are normal . There is moderate spondylosis. Diffuse osteopenia is present. IMPRESSION - No evidence fo r pulmonary embolism, no acute findings. A preliminary report was sent by [employer] [facility] o n 06/14/2015 at 93 7:00 PM with no significant discrepancy. Dictated and Signed by: John Gutierrez MD Electronically signed: 06/15/2015 9:07 AM Serial weights: Filed Weights: 06/14/15 1431 06/14/15 1646 06/15/15 0400 Weight: 52.164 kg (115 lb) 52.1 kg (114 lb 13.8 oz) 53.5 kg (117 lb 15.1 oz) Most recent weight: Input and output for last 24hrs: Wt Readings from Last 1 Encounters: 06/15/15 53.5 kg (117 lb 15.1 oz) I/O last 24 Hours: In: 480 [P.O.:480] Out: 1500 [Urine:1500] I/O last 3 completed shifts: In: 480 [P.O.:480] Out: 1500 [Urine:1500] Vitals Ranges: Temp: [35.9 C (96.6 F)-36.9 C (98.4 F)] 35.9 C (96.6 F) Pulse: [72-101] 101 Resp: [14-21] 18 BP: (112-187)/(54-112) 135/72 mmHg Vitals: Temp: 35.9 C (96.6 F) BP: 135/72 mmHg Pulse: 101 Resp: 18 SpO2 : 96 % SpO2 96 % on room air at flow rate L/min Subjective CC admitted with CP Is better today, brief benefit with GI cocktail and equivocal from NTG Says nicole 4 years ago and intermittent RUQ tenderness (not pain with eating) ever since Says EGD 30 years ago no PUD ROS See above Exam General alert, NAD mood and affect normal speech fluent Cardiac RRR no MRG Extremities no significant edema Lung clear to auscultation effort not labored 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 Abdominal + bowel sounds, soft, less tender in epigastric area and NOT tender in RUQ Assessment and Hospital Course (meyprob vs meyprobap) Principal Problem: Chest pain Active Hospital Problems Diagnosis Chest pain Does not sound cardiac, has been intermittent one year and no EKG nor troponin changes and has left chest wall tenderness that fairly well replicates pain 12th still favor chest wall vs GI GERD (gastroesophageal reflux disease) Epig tender This could be additional source of pain 12th ditto, said no more Aleve as can cause PUD Some sinus tachy on tele reviewed with Dr Martínez, maybe sick sinus (some slow some fast) not yet need intervention Hypertension Was on Rx in past but PCP stopped norvasc due to dizzy Presumed high lipid But not tolerant of Zocor due to leg aches Carotid stenosis patient says Dr Ramirez said not severe enough for sgy TIA by Hx approx 1-2 months ago CTA this admit No PE Echo this admit IMPRESSIONS: 1. Normal left ventricular size, wall thickness and motion. Preserved left ventricular syst olic function. LVEF is 65-70%. 2. Grade 1 left ventricular diastolic dysfunction. 3. Mild aortic valve insufficiency. 4. Mild tricuspid valve regurgitation. 5. Mild pulmonary hypertension with a peak systolic pressure of 35-40 mmHg. 6. Normal IVC with normal respiratory collapse. Stress test this admit 1. Persantine EKG is normal. 2. Normal Persantine Sestamibi myocardial perfusion study with a normal left ventricular s ize and wall thickness. Preserved left ventricular systolic function. LVEF by gated SPECT 80 %. [facility] records 2013 Echo mild to mod AR LV 65-70 2013 Dopscan Left carotid 50-69% 2013 near syncope eval 2013 sinus arrythmia Addendum (more records from [place]) May 2015 carotid dopscan stable 16-49% bilat diameter reduction May 2015 CT head CTA head neck chronic microvasc changes, ventriculomegaly (mod diffuse) no sig vascular stenosis, the ventriculomegaly may be related to volume loss "however a compon ent of hydrocephalus is also possible:. Echo normal EF, borderline LVH, grade one LV diastolic dysfunction, EF 73% Code Status Full Code Medical Decision Maker She cannot come up with one DVT Prophylaxis SCD's while in bed Plan Home today if stress test negative No Aleve Consider low dose BP Rx to take should NOT choose one that can cause bradycardia Addendum stress test [place] Care Manger met with patient and spoke with POA whom has been trying go get patient into as sisted living and will work more on it. I spoke after stress test with PCP and her BP and she should be on something for it, I was going to go for low dose ACEI but with her on chronic KCL will use Cozaar instead and only R x 10 so she needs to followup soon with him Pipo Juarez MD 06/15/2015 11:09 [facility] Reference information. This is NOT part of the patient's formal assessment section. In the assessment or plan section of notes the author may date some of the subsections with a number such as "" or "" to indicate the date of that entry or event. In the example below the 1st line is the original entry and the subsequent lines indicate flowing updates to the subsection: Example assessment subsection (such as CHF or CP or Pneumonia) Patient is improved today with resolution of symptoms Worse with recurrence of symptoms requiring further testing Portions of this chart may have been created with [employer] voice recognition software. Occasi onal wrong-word or sound-alike substitutions may have occurred due to the inherent schuster itations of voice recognition software. Please read the chart carefully and recognize, using context, where these substitutions have occurred edLesli sy R N - 06/14/2015 7:05 PM PSTTim/CT notified of CT Angio orders. documented in this encounter H&P Notes Pipo Juarez MD - 06/14/2015 3:45 PM PSTFormatting of this note might be different fro m the original. [place], [place] HISTORY & PHYSICAL Patient: Lala Huerta : 1930: Age: 85 y.o. MedRec: [id number] PCP: Cuate Simons MD Admission date: 06/14/2015 Hospital day #: 0 Physician author: Pipo Juarez MD Today: 06/14/2015 CHIEF COMPLAINT: Chest pain now only "a little" HISTORY OF PRESENT ILLNESS: This is a 85 y.o. female with a history of year plus history of left chest wall area pain n ot better nor worse with anything, sometimes associated with her GERD, has tenderness in gilbert t area, was worse yesterday and this morning continuous, sharp, vague pleurisy but NOT SOB n ow but some last night, in [place] ER with neg troponin sent to [facility] via [facility] (took hours to arrive). Still discomfort but is milder and earlier was up to 5. Nausea wi thout vomit Says had mini stroke 1-2 months ago and told to stay on ASA, says had effect on voice (whic h persists) and right arm elbow to distal and uses can since Was on Zocor but PCP stopped with achey legs Was on Norvasc but PCP stopped with dizziness (some dizzy earlier today) but says SBP 200 i n [place] ER Says had carotid stenosis on imaging [facility] last year but saw Dr Ramirez whom said not severe enough to need sgy Not vomit Yes arthritis and GERD No DM [facility] in [place] Habits neg X 3 FH brother fatal [place] age 45 and others with CAD No AGUSTIN Says on KCL daily and Prilosec daily and Aleve daily and ASA daily but NOT others and NOT o n narcotic PAST MEDICAL and SURGICAL HISTORY: Past Medical History Diagnosis Date Hypertension GERD (gastroesophageal reflux disease) Stroke (HCC) Past Surgical History Procedure Laterality Date Cholecystectomy Appendectomy Orthopedic surgery right knee Cataract removal Tonsillectomy and adenoidectomy FAMILY HISTORY: family history is not on file. see above SOCIAL HISTORY: reports that she has never smoked. She does not have any smokeless tobacco history on file . She reports that she does not drink alcohol or use illicit drugs. see above too REVIEW OF SYSTEMS: I did my usual 10 system ROS using: Constitutional, Eye, ENT, Cardiac, Respiratory, GI, , Musculoskeletal, Skin & Breast, Neurological. Also see notations in HPI. Denture and partial and glassess Remainder of 10 system ROS negative HOME MEDICATIONS: Previous Medications ASPIRIN 81 MG EC TABLET Take 81 mg by mouth Daily. NAPROXEN SODIUM 220 MG CAPS Take 220 mg by mouth nightly. OMEPRAZOLE (PRILOSEC) 20 MG CAPSULE Take 20 mg by mouth every morning (before breakfast ). POTASSIUM CHLORIDE (K-DUR) 20 MEQ ER TABLET Take 20 mEq by mouth Daily. ALLERGIES: No Known Allergies VITAL SIGNS: Temp: 36.9 C (98.4 F), Pulse: 75, Resp: 16, BP: 187/68 mmHg, SpO2 96 % on room air at f low rate L/min Temp Min: 36.9 C (98.4 F) Max: 36.9 C (98.4 F) Weight: 52.164 kg (115 lb) PHYSICAL EXAMINATION: Constitutional Alert NAD Speech fluent but sounds like presbylarynx Eye Pupils ER No conjunctivitis nor scleral icterus ENT Unremarkable oral ear and nose upper denture lower partial Neck No adenopathy, thyromegaly nor masses Lymph node exam Negative in the following areas: neck and epitrochlear Cardiac Car RRR no MRG LE edema no Lung Auscultation clesar Respiratory effort not labored Percussion OK Left breast exam no masses Chest wall is tender in the bilat left much more than right areas including costochondral Abdomen + BS, Soft, epig tenderness (she recalls maybe UGI years ago for her GERD) Psych Mood and affect normal Oriented to name, date (month, year) but not place Neuro Face symmetric, tongue midline no pronator drift (dot meyexam) DIAGNOSTIC STUDIES: No results for input(s): WBC, HGB, HCT, PLT, NEUPCT, MONPCT in the last 168 hours. Invalid input(s): EOSPCT, NEUABC No results for input(s): PROTIME, INR in the last 168 hours. No results for input(s): PTT in the last 168 hours. No results for input(s): GLU, NA, K, CL, CO2, ANIONGAP, BUN, CREA, GFRNONAA, CALCIUM, ALBUM IN, TOTALPROTEIN, BILITOT, ALKPHOS, ALT, AST in the last 168 hours. No results for input(s): BNP in the last 168 hours. No results for input(s): MG in the last 168 hours. No results for input(s): PHOS in the last 168 hours. No results for input(s): AMYLASE, LIPASE in the last 168 hours. No results for input(s): AMMONIA in the last 168 hours. No results for input(s): TROPONINI, CK, CKMB in the last 168 hours. Invalid input(s): CKTOTAL No results for input(s): PHART, PO2ART, NXC6AOP, GIL8ERC, BEART, [id number] in the last 168 h ours. No results for input(s): SPECSOURCE, PHPOCB, PCO2, PO2, HCO3, TCO2, BEART, [id number] in the last 168 hours. No results for input(s): IRON, TIBC, PCTSAT, FERRITIN, TSH, [id number], FOLATE in the last 168 hours. No results for input(s): ALCOHOL, ACTMN, SALICYLATE in the last 168 hours. No results for input(s): AMPHEQUAL, BARBITURATE, BENZSCR, CANNIBSCR, AMPHETAMINE, METHADSCR , OPIATESCR in the last 168 hours. Micro results (more choices using dotmicro) Microbiology Results (72 hrs) No results found for the last 72 hours. Radiology results (more choices using dotrisresults) No results found. I reviewed CXR report preet OK EKG Results (I reviewed EKG) no ischemia I reviewed and summarized old records and labs in [place] good GFR ASSESSMENT: (meyprob vs meyprobap) Principal Problem: Chest pain Active Hospital Problems Diagnosis Chest pain Does not sound cardiac, has been intermittent one year and no EKG nor troponin changes and has left chest wall tenderness that fairly well replicates pain GERD (gastroesophageal reflux disease) Epig tender This could be additional source of pain Hypertension Was on Rx in past but PCP stopped norvasc due to dizzy Presumed high lipid But not tolerant of Zocor due to leg aches Carotid stenosis patient says Dr Ramirez said not severe enough for sgy TIA by Hx approx 1-2 months ago [facility] records 2013 Echo mild to mod AR LV 65-70 2013 Dopscan Left carotid 50-69% 2013 near syncope eval 2013 sinus arrythmia Addendum (more records from [place]) May 2015 carotid dopscan stable 16-49% bilat diameter reduction May 2015 CT head CTA head neck chronic microvasc changes, ventriculomegaly (mod diffuse) no sig vascular stenosis, the ventriculomegaly may be related to volume loss "however a compon ent of hydrocephalus is also possible:. Echo normal EF, borderline LVH, grade one LV diastolic dysfunction, EF 73% Code Status Full Code Medical Decision Maker She cannot come up with one DVT Prophylaxis SCD's while in bed PLAN: Obs admit Trend labs D Dimer Consider CTA but doubt PE (will do if sig D Dimer) Maybe stress test tomorrow Watch BP may need Rx PPI Stop Aleve (can cause GI distress, ulcer etc) Need results from [place] regarding her TIA eval, addendum received and noted above Note updated 12th with [place] additional records [facility] Documentation I expect this patient will be hospitalized for post-operative care of an IP-only procedure and expect the post-hospital plan to be discharge to home or to an adult foster home. Electronically signed by: Pipo Juarez MD 06/14/2015 15:45 [facility] Portions of this chart may have been created with [employer] voice recognition software. Occasi onal wrong-word or sound-alike substitutions may have occurred due to the inherent schuster itations of voice recognition software. Please read the chart carefully and recognize, using context, where these substitutions have occurred documented in this en counter ED Notes Tim Bland MD - 06/14/2015 3:11 PM PSTPatient not seen by myself. Seen only by krupa patterson. Chart entered in error Tim Bland MD 06/14/15 1512 documen paul in this encounter Miscellaneous Notes eICU Note - Rosalind Larose RN - 06/15/2015 3:25 PM PSTDischarge instructions reviewed with patient follow up appointment made prior to discharge. No c/o pain with activity in room. P atient verbalizes readiness to go home. Cozaar prescription called in to [facility] in [facility]. Patient informed of. Patient's friend Jennifer, in and will transport patient back to her home. lan of Care - Renata Diallo, Granulator Operator-Clinical - 06/15/2015 2:24 PM PSTProblem: General Plan of Care (Adult, Obstetrics) Goal: Care Plan Shift Summary & Review . Discharge plans: Met with patient to discuss her discharge plans: She states that she lives alone in [place] and has a close friend named Layne, who takes her around and they do things together. She could not remember her last name. She uses a 4WW at home and also just recently got a life alert and actually used it to call the hospital when she was having her chest pain. Patient reports that she has been having trouble with weak legs at home and also with weigh t loss. Her usually weight is about 130#. She also is currently going to OP PT by [facility] and has her neighbor driving her there (this was confirmed by Layne). This manager of case also called her DPOA, Layne Mcgarry, in [place] and confirmed with mihir carvajal that this is the same Layne who helps her and checks up on her. Layne stated that she almost had Lala, the patient, convinced to move into an assisted yumiko ng there and then she reports that patient's MD stated she did not need to; this CM highly e ncouraged patient to seek out this change which would be so much safer for her emotionally, physically, and nutritionally. Layne is going to try and work on this again once patient get s back home. Layne stated that she would not be able to come and pick her up for the next 2 days. Called [facility], [phone], and asked [facility], if he could transport this patient back to her home today, and he said that he would be available after 1430 today. Spoke with glenroy ent about this plan and told her the cost and she reluctantly is going to pay for the $35 pi ck up charge and $2 per mile back to her single level home in [place]. DARBY Tillman, also st ated that patient has the finances to pay for this. Let patient know that Layne would like her to call as soon as [facility] RN will call Layne once patient actually leaves the hospital here. Patient confirmed that her MD is Cuate Simons there and she uses [facility] in [place] for her pharmacy needs. Called Dr. Juarez and let him know that this CM found transportation home today for this pat ient, and he will do the discharge papers around [phone]. Patient also reports that her bathroom is all handicapped accessible since her need ed this before he in 2003. She also had a significant other for 7 years, that velasquez ren in 2012. Patient wants to go back home, and has neighbors that check up on her in addition to her PO Viraj, Layne. She still makes her own meals, mostly using the microwave, but still occasionally uses the stove, she reports. Layne stated that she has been going downhill with her mentation though, and is really need ing to get her to an [facility]. She did not wish to have any HH support since she is going out to OP PT already, and is not home bound. 14:22 Bedside RN just stated that patient suddenly found a friend and called her and she re ports that she is on her way. RN will keep the 2nd plan open in case this is not true, since she could not reach her to verify. Warm top found for patient since she does not have a jacket here for transport. She does grayson ve some shoes, and her purse, and pants, she arrived with at the hospital.No other needs not ed at this time. Electronically signed by: Renata Diallo, ETCH OPERATOR [employer] 06/15/2015 14:24 la n of Care - Pete Crockett Chaplain - 06/15/2015 11:33 AM PSTProblem: General Plan of Ca re (Adult, Obstetrics) Goal: Care Plan Shift Summary & Review . Spiritual Care Lala Huerta is a 85 y.o. female who is admitted for Essential hypertension [I10] Chest pain at rest [R07.9] Chest pain, unspecified chest pain type [R07.9] Gastroesophageal reflux disease, esophagitis presence not specified [K21.9]. Spiritual Evaluation: Patient was resting in bed; she commented that she was wearing the same PJ's as when she ar rived yesterday. Her chest pain is better for now, but she has been having chest pain (on an d off) for a year, and she expects it to return. She was in good spirits, and was quite conv ersational. She believes in God, but isn't affiliated with any particular restoration or marilee gr oup. Spiritual Interventions: I offered supportive listening, ministry of presence, and friendly company. Spiritual Outcomes: Lala thanked me for coming to see her; she smiled and seemed happy to have some company. Spiritual Goals/Follow-up: Follow up with regular visits, emotional support. lan of Car Janes Ferrer RN - 06/15/2015 8:08 AM PSTProblem: General Plan of Care (Adult, Obst etrics) Goal: Care Plan Shift Summary & Review . AOx4 reporting generalized weakness since admission. NSR, few episodes of SBP>160, LSC, RA. NPO after mid-night for nuclear stress test in AM. FWW, SBA. Pt had 3 episodes of nausea du ring night and reported presence of 4/10 L chest pressure much of night. GI cocktail given w ith some decrease in pain but returned, nitro SL given and pain decreased enough to fall asl eep. eICU Note - Janes Weber RN - 06/15/2015 12:46 AM PSTPt reporting 4/10 left chest pain that feels like bu rning/pressure. Pain severity does not change with inspiration/expiration. She does report a asad directly to left of sternum being sore to palpation and pain increases sometimes when s he swallows food/liquid. VSS on RA. MD ordered GI cocktail. If pain still persists, will try nitro SL. lan of Car e - Lesli Heard RN - 06/14/2015 6:32 PM PSTProblem: General Plan of Care (Adult, Ob stetrics) Goal: Care Plan Shift Summary & Review . Outcome: Progressing Patient admitted for left sided CP X several months, negative Troponin. D-dimer 0.58, Telem etry in place. A&O X 4, VSS, LSC, RA. NPO after mid-night for stress test in AM. FWW, SBA. lan of Care - Grayson geraldRaisa, ROPE MACHINE SETTER - 06/14/2015 5:57 PM PST Problem: General Plan of Care (Adult, Obstetrics) Goal: Care Plan Shift Summary & Review . Severity Score 1 Class1 Severity Score 0-4 ITEM 0 1 2 3 4 0 Respiratory History No Smoking history Current tobacco use Up to 10 Pack year history. Simple home regimen Known Pulmonary Disease 20 pack year history Complex Home regimen 30+ pack year history Severe Pulmonary Disease or exacerbation 0 Surgery Status (current admission) No surgery Minor surgery Lower abdominal rib fractures Thoracic or uppe r abdominal Thoracic with pulmonary disease or Central Nervous System 1 Chest X-RAY Clear or Normal baseline Unavailable Improving/clearing Abnormal, Unilateral or mild Infiltrates or atelectasis, Chronic changes Infiltrates mild bilateral or unilateral or pleural effusions extensive Inf iltrates, atelectasis or pleural effusions, pneumothorax 0 Respiratory Pattern Regular pattern Respiratory Rate:8-20 Increased Respiratory Rate, labored Dyspnea on exertion, irregular pattern Use of accessory muscles, prolonged expirato ry phase nasal flaring Severe Dyspnea , Purse Lip Breathing, Use of accessory muscles 0 Breath Sounds Clear Diminished unilaterally Diminished bilaterally &/or crackles Wheezing or Rhonchi &/or absent unilateral Absent bilaterally 0 Cough Strong, non productive Moderate, loose, productive Weak, non-productive Weak, ineffective Non-spontaneous or may require suctioning 0 Sputum None Scant / Thin White/clear Moderate Beige/ yellow Large / Thick Dark Green/Brown Copious / Plugs Hemoptysis estrella 0 LOC Alert, oriented, cooperative Disoriented, follows commands Obtunded, arousable, follo ws commands Obtunded, uncooperative, sedated Comatose 0 Oxygen Demand Room air Baseline 1-2 liters 3-6 liters >7 Liters Oxymizer to > 55% 60% or greater Total Severity Score (SS) Class 0-3 1 4-7 2 8-11 3 12-14 4 15+ 5 D Triage Notes - Karo Muro, RN - 06/14/2015 2:30 PM PSTPt states that she [facility] fo r chest pain, states she has had intermittent chest pain for a few months now. Pain has bee n progressively getting worse. Today she had nausea and shortness of breath with the pain.E lectronically signed by Karo Vines RN at 06/14/2015 2:31 PM PSTdocumented in this encou nter Plan of Treatment Not on filedocumented as of this encounter Procedures + +--------+ + + + | Procedure Name | Priori | Date/Time | Associated Diagnosis | Comments | | | ty | | | | + +--------+ + + + | NM NUCLEAR STRESS | Routin | 06/15/2015 | | Results for this | | TEST (PHARMACOLOGIC | e | 12:22 PM | | procedure are in the | | - VASODILATOR) | | PST | | results section. | + +--------+ + + + | LIPID PANEL | Routin | 06/15/2015 | | Results for this | | | e | 4:32 AM | | procedure are in the | | | | PST | | results section. | + +--------+ + + + | EXTRA LAVENDER TOP | Routin | 06/15/2015 | | Results for this | | TUBE | e | 4:32 AM | | procedure are in the | | | | PST | | results section. | + +--------+ + + + | TROPONIN I | Routin | 06/15/2015 | | Results for this | | | e | 4:32 AM | | procedure are in the | | | | PST | | results section. | + +--------+ + + + | TROPONIN I | Routin | 06/14/2015 | | Results for this | | | e | 10:32 PM | | procedure are in the | | | | PST | | results section. | + +--------+ + + + | CT ANGIOGRAM | STAT | 06/14/2015 | | Results for this | | PULMONARY | | 9:18 PM | | procedure are in the | | | | PST | | results section. | + +--------+ + + + | ECHO COMPLETE | STAT | 06/14/2015 | | Results for this | | | | 8:44 PM | | procedure are in the | | | | PST | | results section. | + +--------+ + + + | CULTURE, MRSA | Routin | 06/14/2015 | | Results for this | | | e | 5:15 PM | | procedure are in the | | | | PST | | results section. | + +--------+ + + + | D-DIMER | STAT | 06/14/2015 | | Results for this | | | | 4:43 PM | | procedure are in the | | | | PST | | results section. | + +--------+ + + + | TROPONIN I | Routin | 06/14/2015 | | Results for this | | | e | 4:42 PM | | procedure are in the | | | | PST | | results section. | + +--------+ + + + | CBC WITH | Routin | 06/14/2015 | | Results for this | | DIFFERENTIAL | e | 4:42 PM | | procedure are in the | | | | PST | | results section. | + +--------+ + + + | COMPREHENSIVE | Routin | 06/14/2015 | | Results for this | | METABOLIC PANEL | e | 4:42 PM | | procedure are in the | | | | PST | | results section. | + +--------+ + + + | ECG 12 LEAD | STAT | 06/14/2015 | | Results for this | | | | 2:32 PM | | procedure are in the | | | | PST | | results section. | + +--------+ + + + documented in this encounter Results NM Nuclear Stress Test (Vasodilator) (06/15/2015 12:22 PM PST) + + | Specimen | + + | | + + + + + | Impressions | Performed At | + + + | 1. Persantine EKG is normal. 2. Normal Persantine | [facility] | | Sestamibi myocardial perfusion study with a normal left ventricular | | | size and wall thickness. Preserved left ventricular systolic | | | function. LVEF by gated SPECT 80 %. Signed by: Filiberto | | | MD Carmen [facility] 06/15/2015, 12:22 | | + + + + + + | Narrative | Performed At | + + + | NUCLEAR MEDICINE STRESS TEST REPORT | [facility] | | Patient Name: Lala Huerta Study Date: 06/15/2015 Primary Care | | | Provider: Cuate Simons MD : | | | 1930 Age: 85 y.o. Gender: female CLINICAL | | | HISTORY/DIAGNOSIS: Chest pain PERSANTINE SESTAMIBI STRESS | | | TEST Indication: chest pain Procedure: In the supine | | | position, 30.2 mg of Persantine was infused intravenously over 4 | | | minutes. Blood pressure and EKG were monitored every 1 minute. 5 | | | mL of normal saline was utilized to flush the IV line. 2.5 minutes | | | later, 10.4 mCi sestamibi intravenous injection. SPECT myocardial | | | perfusion imaging was acquired with wall motion analysis. Rest | | | imaging was performed using 29.7 mCi Sestamibi intravenous | | | injection. Repeated SPECT myocardial perfusion imaging was | | | acquired with wall motion analysis. At the end of the procedure, | | | 75 mg of aminophylline was infused intravenously. Hemodynamics: | | | Heart rate baseline 77 beats per minute, peak 97 beats per minute. | | | Blood pressure baseline 162/64 mmHg, peak 115/55 mmHg. EKG | | | baseline underlying sinus rhythm, nonspecific ST-T abnormalities. | | | Peak unchanged. Side Effects: None. Arrhythmia: None. | | | Persantine Sestamibi Myocardial Perfusion Imaging Result: The | | | Persantine Sestamibi tomographic images, reviewed without the | | | attenuation compensation resolution, revealed a normal myocardial | | | perfusion pattern as seen in short axis, vertical long axis, and | | | horizontal long axis projections. The left ventricular cavity is | | | normal. The rest imaging is also normal. Gated SPECT | | | reveals a normal left ventricular wall thickness and motion. | | | Preserved left ventricular systolic function. LVEF by gated SPECT is | | | 80 %. | | + + + + +---------+ + + | Performing | Address | City/State/Zipcode | Phone Number | | Organization | | | | + +---------+ + + | [facility] | | | | + +---------+ + + Extra Lavender Top Tube (06/15/2015 4:32 AM PST) + +-------+ + + + | Component | Value | Ref Range | Performed | Pathologist | | | | | At | Signature | + +-------+ + + + | Extra | Done | | [facility] | | | Lavender | | | [facility] | | | Top Tube | | | MEDICAL | | | | | | CENTER - | | | | | | LABORATORY | | + +-------+ + + + + + | Specimen | + + | Blood | + + + + + + + | Performing | Address | City/State/Zipcode | Phone Number | | Organization | | | | + + + + + | [facility] | [address] | [place] | [phone] | | [facility] | | [address] | | | - LABORATORY | | | | + + + + + Lipid Panel (06/15/2015 4:32 AM PST) + + + + + + | Component | Value | Ref Range | Performed | Pathologist | | | | | At | Signature | + + + + + + | Triglycerid | 78 | 35 - 160 mg/dL | [facility] | | | es | | | [facility] | | | | | | MEDICAL | | | | | | CENTER - | | | | | | LABORATORY | | + + + + + + | Cholesterol | 221 (H) | 150 - 200 mg/dL | [facility] | | | | | | [facility] | | | | | | MEDICAL | | | | | | CENTER - | | | | | | LABORATORY | | + + + + + + | HDL | 60Comment: New HDL | 28 - 83 mg/dL | [facility] | | | | Reference Range as of | | [facility] | | | | April 13, 2015 | | MEDICAL | | | | Values may be 10-20% | | CENTER - | | | | lower with new, | | LABORATORY | | | | standardized method. | | | | + + + + + + | Chol/HDL | 3.7 | | [facility] | | | Ratio | | | [facility] | | | | | | MEDICAL | | | | | | CENTER - | | | | | | LABORATORY | | + + + + + + | LDL, | 145 (H) | <=130 mg/dL | [facility] | | | Calculated | | | [facility] | | | | | | MEDICAL | | | | | | CENTER - | | | | | | LABORATORY | | + + + + + + + + | Specimen | + + | Blood | + + + + + + + | Performing | Address | City/State/Zipcode | Phone Number | | Organization | | | | + + + + + | [facility] | [address] | [place], [place] | [phone] | | [facility] | | [address] | | | - LABORATORY | | | | + + + + + Troponin I (06/15/2015 4:32 AM PST) + + + + + + | Component | Value | Ref Range | Performed | Pathologist | | | | | At | Signature | + + + + + + | Troponin I | <0.01Comment: Reference | <0.06 ng/mL | [facility] | | | | Ranges:0.00-0.06 = | | [facility] | | | | NORMAL>0.06 = | | MEDICAL | | | | SUSPICIOUS FOR | | CENTER - | | | | MYOCARDIAL DAMAGE NOTE: | | LABORATORY | | | | Values greater than 0.50 | | | | | | ng/mL have been shown | | | | | | to be strongly | | | | | | associated with acute | | | | | | myocardial infarction. | | | | | | The [employer] | | | | | | Cardiology (ACC) | | | | | | recommends a decision | | | | | | limit of 0.06 ng/mL for | | | | | | this assay. Results | | | | | | greater than 0.06 can | | | | | | reflect a pre-infarct | | | | | | acute coronary syndrome, | | | | | | but can also reflect | | | | | | myocardial necrosis or | | | | | | injury that is not due | | | | | | to coronary artery | | | | | | disease. Some of these | | | | | | causes are sepsis, | | | | | | hypocolemia, atrial | | | | | | fibrillation, heart | | | | | | failure, pulmonary | | | | | | embolism, myocarditis, | | | | | | myocardial contusion, | | | | | | and renal failure. The | | | | | | diagnosis of myocardial | | | | | | infarction should be | | | | | | based on a combination | | | | | | of the patient's | | | | | | clinical presentation | | | | | | and the clinical | | | | | | laboratory test results | | | | | | (especially serial | | | | | | troponin levels). | | | | + + + + + + + + | Specimen | + + | Blood | + + + + + + + | Performing | Address | City/State/Zipcode | Phone Number | | Organization | | | | + + + + + | [facility] | [address] | [place] | [phone] | | [facility] | | [address] | | | - LABORATORY | | | | + + + + + Troponin I (06/14/2015 10:32 PM PST) + + + + + + | Component | Value | Ref Range | Performed | Pathologist | | | | | At | Signature | + + + + + + | Troponin I | <0.01Comment: Reference | <0.06 ng/mL | [facility] | | | | Ranges:0.00-0.06 = | | [facility] | | | | NORMAL>0.06 = | | MEDICAL | | | | SUSPICIOUS FOR | | CENTER - | | | | MYOCARDIAL DAMAGE NOTE: | | LABORATORY | | | | Values greater than 0.50 | | | | | | ng/mL have been shown | | | | | | to be strongly | | | | | | associated with acute | | | | | | myocardial infarction. | | | | | | The [employer] | | | | | | Cardiology (ACC) | | | | | | recommends a decision | | | | | | limit of 0.06 ng/mL for | | | | | | this assay. Results | | | | | | greater than 0.06 can | | | | | | reflect a pre-infarct | | | | | | acute coronary syndrome, | | | | | | but can also reflect | | | | | | myocardial necrosis or | | | | | | injury that is not due | | | | | | to coronary artery | | | | | | disease. Some of these | | | | | | causes are sepsis, | | | | | | hypocolemia, atrial | | | | | | fibrillation, heart | | | | | | failure, pulmonary | | | | | | embolism, myocarditis, | | | | | | myocardial contusion, | | | | | | and renal failure. The | | | | | | diagnosis of myocardial | | | | | | infarction should be | | | | | | based on a combination | | | | | | of the patient's | | | | | | clinical presentation | | | | | | and the clinical | | | | | | laboratory test results | | | | | | (especially serial | | | | | | troponin levels). | | | | + + + + + + + + | Specimen | + + | Blood | + + + + + + + | Performing | Address | City/State/Zipcode | Phone Number | | Organization | | | | + + + + + | [facility] | [address] | [place] | [phone] | | [facility] | | [address] | | | - LABORATORY | | | | + + + + + CT Angiogram Pulmonary (06/14/2015 9:18 PM PST) + + | Specimen | + + | | + + + + + | Narrative | Performed At | + + + | CT ANGIOGRAM PULMONARY 06/14/2015 9:03 PM HISTORY: Chest pain | [facility] | | with elevated D Dimer. COMPARISON: None. PROTOCOL: Thin | | | section axial images of the chest were obtained after uneventful | | | administration of 55 mL Omnipaque 350. Coronal and sagittal | | | reformations were acquired. FINDINGS: Neck base is normal. | | | The heart is of normal size. Moderate coronary calcifications are | | | present. There is mild to moderate atherosclerosis of the aorta | | | extending into the branches. The pulmonary arteries are unremarkable. | | | SVC is normal. No enlarged lymph nodes are seen in the | | | mediastinum, willy, or axilla. Trachea and esophagus demonstrate no | | | acute findings. There is a tiny calcified nodule in the lateral | | | aspect of the right upper lung lobe (image 34) that likely represents | | | prior granulomatous disease. No pleural effusion or pneumothorax is | | | seen. There are cholecystectomy clips. Chest wall structures | | | are normal. There is moderate spondylosis. Diffuse osteopenia is | | | present. IMPRESSION - No evidence for pulmonary embolism, no | | | acute findings. A preliminary report was sent by [facility] | | | on 06/14/2015 at 93 7:00 PM with no significant discrepancy. | | | Dictated and Signed by: John Gutierrez MD Electronically signed: | | | 06/15/2015 9:07 AM | | + + + + + | Procedure Note | + + | Jacob, Rad Results In - 06/15/2015 9:[address] ANGIOGRAM PULMONARY 06/14/2015 9:03 | | PMHISTORY: Chest pain with elevated D Dimer.COMPARISON: None.PROTOCOL: Thin section | | axial images of the chest were obtained after uneventfuladministration of 55 mL | | Omnipaque 350. Coronal and sagittal reformations wereacquired.FINDINGS:Neck base is | | normal.The heart is of normal size. Moderate coronary calcifications are present. | | Thereis mild to moderate atherosclerosis of the aorta extending into the branches.The | | pulmonary arteries are unremarkable. SVC is normal.No enlarged lymph nodes are seen in | | the mediastinum, willy, or axilla. Tracheaand esophagus demonstrate no acute | | findings.There is a tiny calcified nodule in the lateral aspect of the right upper | | lunglobe (image 34) that likely represents prior granulomatous disease. No | | pleuraleffusion or pneumothorax is seen.There are cholecystectomy clips.Chest wall | | structures are normal. There is moderate spondylosis. Diffuseosteopenia is | | present.IMPRESSION -No evidence for pulmonary embolism, no acute findings.A preliminary | | report was sent by [facility] on 06/14/2015 at 93 7:00 PMwith no significant | | discrepancy.Dictated and Signed by: John Gutierrez MD Electronically signed: 06/15/2015 | | 9:07 AM | | | |No enlarged lymph nodes are seen in the mediastinum, willy, or axilla. Trachea | |and esophagus demonstrate no acute findings. | | | |There is a tiny calcified nodule in the lateral aspect of the right upper lung | |lobe (image 34) that likely represents prior granulomatous disease. No pleural | |effusion or pneumothorax is seen. | | | |There are cholecystectomy clips. | | | |Chest wall structures are normal. There is moderate spondylosis. Diffuse | |osteopenia is present. | | | |IMPRESSION - | |No evidence for pulmonary embolism, no acute findings. | | | |A preliminary report was sent by [facility] on 06/14/2015 at 93 7:00 PM | |with no significant discrepancy. | | | |Dictated and Signed by: John Gutierrez MD | | Electronically signed: 06/15/2015 9:07 AM | + + + +---------+ + + | Performing | Address | City/State/Zipcode | Phone Number | | Organization | | | | + +---------+ + + | [facility] | | | | + +---------+ + + ECHO Complete (06/14/2015 8:44 PM PST) + + | Specimen | + + | | + + + + + | Narrative | Performed At | + + + | [facility] ECHOCARDIOGRAM REPORT | | | STUDY DATE: 06/14/2015 PATIENT NAME: Lala Huerta : | | | 1930 PCP: Cuate Simons MD | | | CLINICAL HISTORY/DIAGNOSIS: CHEST PAIN A transthoracic | | | echocardiogram with M-mode, pulsed-wave and color Doppler was | | | performed with standard views obtained. The technical quality of | | | this examination is adequate. The heart rhythm during the echo is | | | as rhythm. The M-mode, two-dimensional, color flow and spectral | | | Doppler data were reviewed and support the following interpretation: | | | Interpretation: Left Atrium: Left atrial size is normal. Left | | | ventricle: Left ventricular size is normal with normal wall | | | thickness and motion, and normal left ventricular systolic function. | | | The estimated ejection fraction is 65-70 %. Grade 1 left | | | ventricular diastolic dysfunction. Aortic root: Aortic root is | | | normal. Right Atrium: Right atrial sizes normal. Right ventricle: | | | Right ventricular size is normal with normal wall thickness and | | | normal right ventricular systolic function. Pericardium: | | | Pericardium is normal. Pulmonary artery: Pulmonary artery is | | | normal. mild pulmonary hypertension with a peak systolic pressure of | | | 35-40 mmHg. Aortic valve: Aortic valve is trileaflet and opens | | | normally. mild aortic valve insufficiency Mitral valve: Mitral | | | valve is normal. mild mitral annular calcification Pulmonic valve: | | | Pulmonic valve is normal. Tricuspid valve: Tricuspid valve is | | | normal. mild tricuspid valve regurgitation. Vena cava: The | | | inferior vena cava is normal. There is greater than 50% | | | inspiratory collapse of the IVC. IMPRESSIONS: 1. Normal | | | left ventricular size, wall thickness and motion. Preserved left | | | ventricular systolic function. LVEF is 65-70%. 2. Grade 1 left | | | ventricular diastolic dysfunction. 3. Mild aortic valve | | | insufficiency. 4. Mild tricuspid valve regurgitation. 5. Mild | | | pulmonary hypertension with a peak systolic pressure of 35-40 mmHg. | | | 6. Normal IVC with normal respiratory collapse. | | | Measurements: Height: 5'5" Weight: 115 Aortic root: 30 mm Aortic | | | cusp sep: 13 mm LA: 26 mm IVS-diastole: 6 mm IVS-systole: | | | 13 mm LVPW diastole: 8 mm LVPW systole: 15 mm LV | | | diameter-diastole: 44 mm LV diameter-systole: 21 mm Fractional | | | shortenin % PFV aortic valve: m/s MPG mitral valve: | | | mmHg PFV TR jet: 2.8 m/s RA/RV PP.5 mmHg LA volume: mL | | | LA index: mL/m2 Mitral Inflow DT: 173 ms IVRT: 95 ms | | | Valsalva: NO PWDTI S wave: 11 cm/s PWDTI E wave: 10 cm/s | | | PWDTI A wave: 13 cm/s E/A Ratio: 0.7 E/E Ratio: 5.4 | | | Signed by: Filiberto Morales MD [facility] 06/14/2015 20:51 | | | Head Coach: Brett Salgado, RDCS, RDMS, RVT | | + + + Culture, MRSA (06/14/2015 5:15 PM PST) + + + + + + | Component | Value | Ref Range | Performed | Pathologist | | | | | At | Signature | + + + + + + | Culture | Negative for MRSA by | | [facility] | | | | chromogenic agar method | | [facility] | | | | | [facility] | | | | | | CENTER - | | | | | | LABORATORY | | + + + + + + + + | Specimen | + + | Respiratory - Both | | anterior nares (body | | structure) | + + + + + + + | Performing | Address | City/State/Zipcode | Phone Number | | Organization | | | | + + + + + | [facility] | [address] | [place] | [phone] | | [facility] | | [address] | | | - LABORATORY | | | | + + + + + D-Dimer (06/14/2015 4:43 PM PST) + + + + + + | Component | Value | Ref Range | Performed | Pathologist | | | | | At | Signature | + + + + + + | D-Dimer | 0.58 (H)Comment: This | <=0.50 ug/ml | [facility] | | | Quantitativ | quantitative D-Dimer | | [facility] | | | e | assay has been evaluated | | MEDICAL | | | | for screening for | | CENTER - | | | | venous thrombotic | | LABORATORY | | | | disease, and may be | | | | | | useful in ruling out, | | | | | | but not ruling in | | | | | | disease. Values less | | | | | | than 0.50 ug/mL FEU | | | | | | (Fibrinogen Equivalent | | | | | | Units) have a negative | | | | | | predictive value of | | | | | | approximately 95% for | | | | | | ruling out large | | | | | | pulmonary emboli or | | | | | | proximal deep vein | | | | | | thrombosis. Distal DVT | | | | | | are not excluded. An | | | | | | elevated D-dimer can be | | | | | | present in patients with | | | | | | liver disease, | | | | | | , eclampsia, | | | | | | heart disease and some | | | | | | cancers among other | | | | | | conditions. The presence | | | | | | of rheumatoid factor at | | | | | | a level >50 IU/mL may | | | | | | falsely elevate the | | | | | | determined D-dimer | | | | | | levels. | | | | + + + + + + + + | Specimen | + + | Blood | + + + + + + + | Performing | Address | City/State/Zipcode | Phone Number | | Organization | | | | + + + + + | [facility] | [address] | [place] | [phone] | | [facility] | | [address] | | | - LABORATORY | | | | + + + + + Comprehensive Metabolic Panel (06/14/2015 4:42 PM PST) + + + + + + | Component | Value | Ref Range | Performed | Pathologist | | | | | At | Signature | + + + + + + | Na | 144 | 136 - 149 | [facility] | | | | | mmol/L | [facility] | | | | | | MEDICAL | | | | | | CENTER - | | | | | | LABORATORY | | + + + + + + | K | 3.7 | 3.5 - 5.1 | [facility] | | | | | mmol/L | [facility] | | | | | | MEDICAL | | | | | | CENTER - | | | | | | LABORATORY | | + + + + + + | Cl | 109 | 98 - 109 mmol/L | [facility] | | | | | | [facility] | | | | | | MEDICAL | | | | | | CENTER - | | | | | | LABORATORY | | + + + + + + | CO2 | 25 | 24 - 31 mmol/L | [facility] | | | | | | [facility] | | | | | | MEDICAL | | | | | | CENTER - | | | | | | LABORATORY | | + + + + + + | Anion Gap | 10 | 3 - 16 mmol/L | [facility] | | | | | | [facility] | | | | | | [facility] | | | | | | CENTER - | | | | | | LABORATORY | | + + + + + + | Glucose | 118 (H) | 70 - 109 mg/dL | [facility] | | | | | | [facility] | | | | | | MEDICAL | | | | | | CENTER - | | | | | | LABORATORY | | + + + + + + | BUN | 12 | 7 - 18 mg/dL | [facility] | | | | | | [facility] | [facility] | [facility] | | | | | | C[facility] - | | | | | | LABORATORY | | + + + + + + | Creatinine | 0.86 | 0.60 - 1.30 | [facility] | | | | | mg/dL | [facility] | | | | | | MEDICAL | | | | | | CENTER - | | | | | | LABORATORY | | + + + + + + | eGFR if not | >60Comment: GLOMERULAR | >=60 | [facility] | | | | FILTRATION | mL/min/1.73m2 | [facility] | | | [place] | RATE,ESTIMATED | | MEDICAL | | | | mL/min/1.67u4Colr than | | CENTER - | | | | 60 Chronic kidney | | LABORATORY | | | | disease,if found over a | | | | | | 3-month period.Less than | | | | | | 15 Kidney failureFor | | | | | | | | | | | | Americans,multiply the | | | | | | calculated GFR by 1.21. | | | | | | | | | | + + + + + + | Calcium | 9.7 | 8.3 - 10.5 | [facility] | | | | | mg/dL | [facility] | | | | | | MEDICAL | | | | | | CENTER - | | | | | | LABORATORY | | + + + + + + | Albumin | 4.6 | 3.2 - 5.0 g/dL | [facility] | | | | | | [facility] | | | | | | MEDICAL | | | | | | CENTER - | | | | | | LABORATORY | | + + + + + + | Bilirubin | 0.9 | 0.1 - 1.5 mg/dL | [facility] | | | Total | | | [facility] | | | | | | MEDICAL | | | | | | CENTER - | | | | | | LABORATORY | | + + + + + + | Total | 7.5 | 6.0 - 7.8 g/dL | [facility] | | | Protein | | | [facility] | | | | | | MEDICAL | | | | | | CENTER - | | | | | | LABORATORY | | + + + + + + | AST | 21 | 10 - 42 U/L | [facility] | | | | | | [facility] | | | | | | MEDICAL | | | | | | CENTER - | | | | | | LABORATORY | | + + + + + + | ALT | 12 | 6 - 45 U/L | [facility] | | | | | | [facility] | | | | | | MEDICAL | | | | | | CENTER - | | | | | | LABORATORY | | + + + + + + | Alkaline | 69 | 40 - 110 U/L | [facility] | | | Phosphatase | | | [facility] | | | | | | MEDICAL | | | | | | CENTER - | | | | | | LABORATORY | | + + + + + + | Globulin | 2.9 | g/dL | [facility] | | | | | | [facility] | | | | | | MEDICAL | | | | | | CENTER - | | | | | | LABORATORY | | + + + + + + | Albumin/Pooja | 1.6 | | [facility] | | | bulin Ratio | | | [facility] | | | [facility] | | MEDICAL | | | | | | CENTER - | | | | | | LABORATORY | | + + + + + + | BUN/Creatin | 14.0 | | [facility] | | | ine Ratio | | | [facility] | | | | | | MEDICAL | | | | | | CENTER - | | | | | | LABORATORY | | + + + + + + + + | Specimen | + + | Blood | + + + + + + + | Performing | Address | City/State/Zipcode | Phone Number | | Organization | | | | + + + + + | [facility] | [address] | [place] | [phone] | | [facility] | | [address] | | | - LABORATORY | | | | + + + + + CBC with Differential (06/14/2015 4:42 PM PST) + + + + + + | Component | Value | Ref Range | Performed | Pathologist | | | | | At | Signature | + + + + + + | WBC | 8.7 | 4.0 - 11.0 K/uL | [facility] | | | | | | [facility] | | | | | | MEDICAL | | | | | | CENTER - | | | | | | LABORATORY | | + + + + + + | RBC | 5.21 (H) | 3.70 - 5.20 | [facility] | | | | | M/uL | [facility] | | | | | | MEDICAL | | | | | | CENTER - | | | | | | LABORATORY | | + + + + + + | Hemoglobin | 15.4 | 11.5 - 16.0 | [facility] | | | | | g/dL | [facility] | | | | | | MEDICAL | | | | | | CENTER - | | | | | | LABORATORY | | + + + + + + | Hematocrit | 46.4 | 34.0 - 47.0 % | [facility] | | | | | | [facility] | [facility] | [facility] | | | | | | C[facility] - | | | | | | LABORATORY | | + + + + + + | MCV | 89.1 | 83.0 - 101.0 fL | [facility] | | | | | | [facility] | | [facility] | | [facility] | | | | | | C[facility] - | | | | | | LABORATORY | | + + + + + + | MCH | 29.6 | 28.0 - 35.0 pg | [facility] | | | | | | [facility] | | | | | [facility] | | | | | | C[facility] - | | | | | | LABORATORY | | + + + + + + | MCHC | 33.2 | 32.0 - 36.0 | [facility] | | | | | g/dL | [facility] | | | | | | [facility] | | | | | | C[facility] - | | | | | | LABORATORY | | + + + + + + | RDW-CV | 13.5 | <15.0 % | [facility] | | | | | | [facility] | | | | | | [facility] | | | | | | CENTER - | | | | | | LABORATORY | | + + + + + + | Platelet | 250 | 140 - 440 K/uL | [facility] | | | Count | | | [facility] | | | | | | MEDICAL | | | | | | CENTER - | | | | | | LABORATORY | | + + + + + + | MPV | 8.1 | fL | [facility] | | | | | | [facility] | | | | | | [facility]ICAL | | | | | | CENTER - | | | | | | LABORATORY | | + + + + + + | % | 55.5 | 45.0 - 82.0 % | [facility] | | | Neutrophils | | | [facility] | | | | | | MEDICAL | | | | | | CENTER - | | | | | | LABORATORY | | + + + + + + | % | 34.4 | 20.0 - 45.0 % | [facility] | | | Lymphocytes | | | [facility] | | | | | | MEDICAL | | | | | | CENTER - | | | | | | LABORATORY | | + + + + + + | % Monocytes | 7.1 | 4.0 - 12.0 % | [facility] | | | | | | [facility] | | | | | | MEDICAL | | | | | | CENTER - | | | | | | LABORATORY | | + + + + + + | % | 2.0 | 0.0 - 5.0 % | [facility] | | | Eosinophils | | | [facility] | | | | | | MEDICAL | | | | | | CENTER - | | | | | | LABORATORY | | + + + + + + | % Basophils | 1.0 | 0.0 - 1.0 % | [facility] | | | | | | [facility] | | | | | | MEDICAL | | | | | | CENTER - | | | | | | LABORATORY | | + + + + + + | Absolute | 4.80 | 1.80 - 8.50 | [facility] | | | Neutrophils | | K/uL | [facility] | | | | | | MEDICAL | | | | | | CENTER - | | | | | | LABORATORY | | + + + + + + | Absolute | 3.00 | 0.60 - 3.20 | [facility] | | | Lymphocytes | | K/uL | [facility] | | | | | | MEDICAL | | | | | | CENTER - | | | | | | LABORATORY | | + + + + + + | Absolute | 0.60 | 0.00 - 1.00 | [facility] | | | Monocytes | | K/uL | [facility] | | | | | | MEDICAL | | | | | | CENTER - | | | | | | LABORATORY | | + + + + + + | Absolute | 0.20 | 0.00 - 0.40 | [facility] | | | Eosinophils | | K/uL | [facility] | | | | | | MEDICAL | | | | | | CENTER - | | | | | | LABORATORY | | + + + + + + | Absolute | 0.10 | 0.00 - 0.10 | [facility] | | | Basophils | | K/uL | [facility] | | | | | | MEDICAL | | | | | | CENTER - | | | | | | LABORATORY | | + + + + + + + + | Specimen | + + | Blood | + + + + + + + | Performing | Address | City/State/Zipcode | Phone Number | | Organization | | | | + + + + + | [facility] | [address] | [place] | [phone] | | [facility] | | [address] | | | - LABORATORY | | | | + + + + + Troponin I (06/14/2015 4:42 PM PST) + + + + + + | Component | Value | Ref Range | Performed | Pathologist | | | | | At | Signature | + + + + + + | Troponin I | <0.01Comment: Reference | <0.06 ng/mL | [facility] | | | | Ranges:0.00-0.06 = | | [facility] | | | | NORMAL>0.06 = | | MEDICAL | | | | SUSPICIOUS FOR | | CENTER - | | | | MYOCARDIAL DAMAGE NOTE: | | LABORATORY | | | | Values greater than 0.50 | | | | | | ng/mL have been shown | | | | | | to be strongly | | | | | | associated with acute | | | | | | myocardial infarction. | | | | | | The [employer] | | | | | | Cardiology (ACC) | | | | | | recommends a decision | | | | | | limit of 0.06 ng/mL for | | | | | | this assay. Results | | | | | | greater than 0.06 can | | | | | | reflect a pre-infarct | | | | | | acute coronary syndrome, | | | | | | but can also reflect | | | | | | myocardial necrosis or | | | | | | injury that is not due | | | | | | to coronary artery | | | | | | disease. Some of these | | | | | | causes are sepsis, | | | | | | hypocolemia, atrial | | | | | | fibrillation, heart | | | | | | failure, pulmonary | | | | | | embolism, myocarditis, | | | | | | myocardial contusion, | | | | | | and renal failure. The | | | | | | diagnosis of myocardial | | | | | | infarction should be | | | | | | based on a combination | | | | | | of the patient's | | | | | | clinical presentation | | | | | | and the clinical | | | | | | laboratory test results | | | | | | (especially serial | | | | | | troponin levels). | | | | + + + + + + + + | Specimen | + + | Blood | + + + + + + + | Performing | Address | City/State/Zipcode | Phone Number | | Organization | | | | + + + + + | [facility] | [address] | [place] | [phone] | | [facility] | | [address] | | | - LABORATORY | | | | + + + + + ECG 12 lead (06/14/2015 2:32 PM PST) + + + + + + | Component | Value | Ref Range | Performed | Pathologist | | | | | At | Signature | + + + + + + | VENTRICULAR | 73 | BPM | [facility] | | | RATE EKG | | | | | + + + + + + | ATRIAL RATE | 73 | BPM | [facility] | | + + + + + + | P-R | 134 | ms | [facility] | | | INTERVAL | | | | | + + + + + + | QRS | 76 | ms | [facility] | | | DURATION | | | | | + + + + + + | Q-T | 400 | ms | [facility] | | | INTERVAL | | | | | + + + + + + | Q-T | 440 | ms | [facility] | | | INTERVAL | | | | | | (CORRECTED) | | | | | + + + + + + | P WAVE AXIS | 54 | degrees | [facility] | | + + + + + + | QRS AXIS | 52 | degrees | [facility] | | + + + + + + | T AXIS | 65 | degrees | [facility] | | + + + + + + | INTERPRETAT | Normal sinus rhythmlead | | [facility] | | | ION TEXT | V3 and V6 secondary to | | | | | | artifact: Cannot exclude | | | | | | | | | | | | ischemia/infarctionNorma | | | | | | l ECGNo previous ECGs | | | | | | availableConfirmed by | | | | | | CHRISTIAN GARCIAS MD ([id number]) | | | | | | on 06/15/2015 6:58:48 AM | | | | | | | | | | + + + + + + + + | Specimen | + + | | + + + + + | Narrative | Performed At | + + + | | | + + + + +---------+ + + | Performing | Address | City/State/Zipcode | Phone Number | | Organization | | | | + +---------+ + + | [facility] | | | | + +---------+ + + documented in this encounter Visit Diagnoses + + | Diagnosis | + + | Chest pain - Primary Chest pain, unspecified | + + | Chest pain at rest Chest pain, unspecified | + + | Chest pain, unspecified chest pain type | + + | Gastroesophageal reflux disease, esophagitis presence not specified | + + | Essential hypertension Unspecified essential hypertension | + + | Hypertension Unspecified essential hypertension | + + documented in this encounter Administered Medications + +--------+ +--------+------+------+ | Medication Order | MAR | Action | Dose | Rate | Site | | | Action | Date | | | | + +--------+ +--------+------+------+ | aluminum & magnesium | Given | 06/15/20 | 30 mLs | | | | hydroxide-simethicone (MAALOX | | 15 12:30 | | | | | REGULAR STRENGTH) 200-200-20 mg/5 | | AM PST | | | | | mL suspension 30 mL 30 mL, | | | | | | | Oral, EVERY 4 HOURS PRN, | | | | | | | Indigestion, Starting Wed | | | | | | | 06/14/15 at 1633, Carlos hu, | | | | | | + +--------+ +--------+------+------+ +---+---+ | | | +---+---+ + +-------+ +-------+---+---+ | aminophylline injection 75 mg | Given | 06/15/20 | 75 mg | | | | 75 mg, Intravenous, ONCE PRN, | | 15 8:32 | | | | | protocol, Starting [facility] 06/15/15 | | AM PST | | | | | at 0752, For 1 dose, Nuclear | | | | | | | Medicine | | | | | | + +-------+ +-------+---+---+ +---+---+ | | | +---+---+ + +-------+ +-------+---+---+ | aspirin EC tablet 81 mg 81 mg, | Given | 06/15/20 | 81 mg | | | | Oral, DAILY, First dose on Fri | | 15 9:04 | | | | | 06/14/15 at 1700, Do not cut or | | AM PST | | | | | crush., | | | | | | + +-------+ +-------+---+---+ +-------+ +-------+---+---+ | Given | 06/14/20 | 81 mg | | | | | 15 5:11 | | | | | | PM PST | | | | +-------+ +-------+---+---+ +---+---+ | | | +---+---+ + +-------+ +--------+--------+---+ | dipyridamole (PERSANTINE) 60mg | Given | 06/15/20 | 7.597 | 303.9 | | | in 40 mL NS syringe 0.142 | | 15 8:15 | mg/min | mL/hr | | | mg/kg/min | | AM PST | | | | | 53.5 kg (303.88 mL/hr, rounded | | | | | | | to 303.9 mL/hr), Intravenous, | | | | | | | Administer over 4 Minutes, ONCE, | | | | | | | [facility] 06/15/15 at 0815, For 1 dose, | | | | | | | Nuclear Medicine | | | | | | + +-------+ +--------+--------+---+ +---+---+ | | | +---+---+ + +-------+ +--------+---+ + | iohexol (OMNIPAQUE 350) 350 | Given | 06/14/20 | 55 mLs | | Left Arm | | mg/mL injection 55 mL 55 mL, | | 15 9:18 | | | | | Intravenous, ONCE PRN, Other, | | PM PST | | | | | Starting 06/14/15 at 2118, | | | | | | | For 1 dose, Cat Scanner | | | | | | + +-------+ +--------+---+ + +---+---+ | | | +---+---+ + +-------+ +--------+---+---+ | lidocaine (XYLOCAINE) 2% | Given | 06/15/20 | 10 mLs | | | | viscous solution 10 mL 10 mL, | | 15 12:30 | | | | | Oral, ONCE PRN, Pain, Starting | | AM PST | | | | | [facility] 06/15/15 at 0015, For 1 dose, | | | | | | | Mix lidocaine and MAALOX. Shake | | | | | | | well., | | | | | | + +-------+ +--------+---+---+ +---+---+ | | | +---+---+ + +-------+ +--------+---+---+ | nitroglycerin (NITROSTAT) SL | Given | 06/15/20 | 0.4 mg | | | | tablet 0.4 mg 0.4 mg, | | 15 4:12 | | | | | Sublingual, EVERY 5 MIN PRN, | | AM PST | | | | | Chest pain, Starting [facility] 06/15/15 | | | | | | | at 0017, Maximum of 3 doses in | | | | | | | 15 minutes., | | | | | | + +-------+ +--------+---+---+ +---+---+ | | | +---+---+ + +-------+ +------+---+---+ | ondansetron (ZOFRAN) injection | Given | 06/15/20 | 4 mg | | | | 4 mg 4 mg, Intravenous, EVERY 6 | | 15 4:12 | | | | | HOURS PRN, Nausea, Vomiting, | | AM PST | | | | | Starting [facility] 06/14/15 at 1633, | | | | | | | First line agent, | | | | | | + +-------+ +------+---+---+ +-------+ +------+---+---+ | Given | 06/14/20 | 4 mg | | | | | 15 7:27 | | | | | | PM PST | | | | +-------+ +------+---+---+ +---+---+ | | | +---+---+ + +-------+ +-------+---+---+ | pantoprazole (PROTONIX) DR | Given | 06/15/20 | 40 mg | | | | tablet 40 mg 40 mg, Oral, DAILY | | 15 6:44 | | | | | BEFORE BREAKFAST, First dose on | | AM PST | | | | | 06/14/15 at 1700, Do not cut | | | | | | | or crush., | | | | | | + +-------+ +-------+---+---+ +---+---+ | | | +---+---+ + +-------+ +--------+---+---+ | potassium chloride (K-DUR) ER | Given | 06/15/20 | 20 mEq | | | | tablet 20 mEq 20 mEq, Oral, | | 15 9:04 | | | | | DAILY, First dose on [place] 06/15/15 | | AM PST | | | | | at 0900, Tablet may be cut where | | | | | | | scored but do not crush., | | | | | | + +-------+ +--------+---+---+ +---+---+ | | | +---+---+ + +------+ +--------+-------+ + | sodium chloride 0.9% (NS) bolus | Push | 06/14/20 | 40 mLs | 2400 | Left Arm | | 40 mL 40 mL, Intravenous, | | 15 9:18 | | mL/hr | | | Administer over 1 Minutes, ONCE | | PM PST | | | | | PRN, for contrast study, Starting | | | | | | | 06/14/15 at 2118, For 1 | | | | | | | dose, May infuse at a different | | | | | | | rate per protocol., [facility] Scanner | | | | | | + +------+ +--------+-------+ + +---+---+ | | | +---+---+ + +-------+ + +---+---+ | technetium TC-99M sestamibi | Given | 06/15/20 | 30 | | | | (CARDIOLITE) injection 30 | | 15 11:46 | -millicu | | | | millicurie 30 -millicurie, | | AM PST | eleni | | | | Intravenous, ONCE PRN, Other, | | | | | | | Starting [facility] 06/15/15 at 1146, | | | | | | | For 1 dose, Nuclear Medicine | | | | | | + +-------+ + +---+---+ +---+---+ | | | +---+---+ + +-------+ + +---+---+ | technetium TC-99M sestamibi | Given | 06/15/20 | 10.4 | | | | (CARDIOLITE) injection 9 | | 15 7:52 | -millicu | | | | millicurie 9 -millicurie, | | AM PST | eleni | | | | Intravenous, ONCE PRN, Other, | | | | | | | Starting [facility] 06/15/15 at 0752, | | | | | | | For 1 dose, Nuclear Medicine | | | | | | + +-------+ + +---+---+ +---+---+ | | | +---+---+ documented in this encounter
--- OUTSIDE RECORDS SUMMARY | ~2020-01-28 | XMS | Encounter Summary ---
Demographics + + + | Address | [address] | | | [place] [address] | + + + | Home Phone | | + + + | Preferred Language | Unknown | + + + | Marital Status | | + + + | Anglican Affiliation | Unknown | + + + | Race | Unknown | + + + | Ethnic Group | Unknown | + + + Author + + + | Author | [facility] | | | and [place] | + + + | Organization | [facility] | | | and [...] [place] | | | | | [id number] | | + + + + + | Cyndy Mcneal | ECON | [place] | | | | | [address] | | + + + + + Care Team Providers + +------+ + | Care Vp [employer] Name | Role | Phone | + [...] | | | | | | [place] | | | | | | [phone] | | | | | | [phone] | | | +--------+ + + + [...]
--- OUTSIDE RECORDS SUMMARY | ~2020-01-28 | XMS | Encounter Summary ---
Demographics + + + | Address | [address] | | | [place] [address] | + + + | Home Phone | | + + + | Preferred Language | Unknown | + + + | Marital Status | | + + + | Pentecostalism Affiliation | Unknown | + + + | Race | Unknown | + + + | Ethnic Group | Unknown | + + + Author + + + | Author | [facility] | | | and [place] | + + + | Organization | [facility] | | | and [...] [place] | | | | | [id number] | | + + + + + | Cyndy Mcneal | ECON | [place] | | | | | [address] | | + + + + + Care Team Providers + +------+ + | Care Wood Milling Machine Tender Name | Role | Phone | + +------+ + PCP | Unavailable | + +------+ + Encounter Details +--------+ + + + + | Date | Type | Department | Care Team | Description | +--------+ + + + + | 01/13/ | Hospital | [facility] | Ray Strickland, | HTN (hypertension); | | 2013 - | Encounter | [facility] | [address] | GERD | | | | CLINICAL DECISION | [place] [address] | (gastroesophageal | | 01/14/ | | [address] | [phone] | reflux disease); | | 2013 | | [place], [place] | | Dizziness; | | | | [address] | | Arrhythmia | | | | [phone] | | | +--------+ + + + [...] as of this encounter Discharge Summaries Louis Bran MD - 01/14/2014 11:02 AM PDTFormatting of this note might be different fr om the original. Discharge Summaries by Louis Bran MD at 01/14/14 1102 Author: Louis Bran MD Service: (none) Author Type: Physician Filed: 01/16/14 0718 Date of Service: 01/14/14 1102 Status: Signed Litigation Services Manager: Louis Bran MD (Physician) Related Notes: Original Note by Louis Bran MD (Physician) filed at 01/14/14 1115 [facility] Service: Hospitalist Discharge Summary Date of Admission: 01/13/2014 Date of Discharge: 01/14/14 Discharge Provider: Louis Bran MD Treatment Team: Admitting Provider: Ray Strickland MD Discharge Diagnoses: Principal Problem: *Near syncope [...] 65 - 70 %. 2. There is msgq-mk-rwhppkir aortic regurgitation. 3. Moderate tricuspid regurgitatio n [...] presented to the emerg ency department at [facility] where she was noted to have a [...] an ejection fraction of 65% to 70%, cbxh-gm-ckofumrc aortic regurgitation and moderate tricuspid regurgitation. Workup [...] by mouth 2 (two) times daily with dennis mane. omeprazole (PRILOSEC) 20 MG capsule Take 20 [...] F (36.9 C)] 98.3 F (36.8 C) (01/14 0756) BP: (94-134)/(47-68) 124/58 mmHg (01/14 0845) Heart Rate: [54-74] 72 (01/14 0845) Resp: [16] 16 (01/14 0756) SpO2: [95 %-98 %] 95 % (01/14 [...] on file. Follow up: Bud Conway MD [address] [place] [id number] Schedule an appointment as soon as possible for a visit in 1 week Marie Simons MD [address] [place] [address] In 1 week Medication List As of [...] and documentation of dis charge summary. Louis Bran MD 01/14/2014 documented in this encounter Progress Notes Conversion Transaction, Provider Unknown - 01/14/2014 2:00 PM PDTFormatting of this note m ight be different from the original. Nurse Progress Note by Rhona Amanda RN at 01/14/14 1400 Author: Rhona Amanda RN Service: (none) Author Type: Registered Nurse Filed: 01/14/14 1706 Date of Service: 01/14/14 1400 Status: Signed Litigation Services Manager: Rhona Amanda RN (Registered Nurse) Pt given [...] Date of Service: 01/14/14 1147 Status: Signed Litigation Services Manager: Rhona Amanda RN (Registered Nurse) Pt will be getting discharge to go home today. She is trying to find a ride. onver edwar Transaction, Provider Unknown - 01/14/2014 9:51 AM PDT Nurse Progress Note by Rhona Amanda RN at 01/14/14950 Author: Rhona Amanda RN Service: (none) Author Type: Registered Nurse Filed: 01/14/1452 Date of Service: 01/14/14950 Status: Signed Litigation Services Manager: Rhona Amanda RN (Registered Nurse) Spoke w/ Dr Bran, he does not want to proceed with speech eval at this time. onver edwar Transaction, Provider Unknown - 01/14/2014 9:08 AM PDT Nurse Progress Note by Rhona Amanda RN at 01/14/14907 Author: Rhona Amanda RN Service: (none) Author Type: Registered Nurse Filed: 01/14/14908 Date of Service: 01/14/14907 Status: Signed Litigation Services Manager: Rhona Amanda RN (Registered Nurse) Physical Therapist reports to me that pt's boyfriend 2 weeks ago. Pt's boyfriend's [place] ghter is trying to get back some things that this patient has from her boyfriend. These are new stressors in her life right now. onver edwar Transaction, Provider Unknown - 01/14/2014 8:40 AM PDT Nurse Progress Note by Rhona Amanda RN at 01/14/14839 Author: Rhona Amanda RN Service: (none) Author Type: Registered Nurse Filed: 01/14/14839 Date of Service: 01/14/14839 Status: Signed Litigation Services Manager: Rhona Amanda RN (Registered Nurse) Physical therapy in pt's room at this time. Geovanna Sahu, PT - 01/14/2014 8:20 AM PDTFormatting of this note might be different from jacqueline e original. Therapy Progress Note by Geovanna Whitman, PT at 01/14/14 08 Author: Geovanna Whitman, PT Service: (none) Author Type: Physical Therapist Filed: 01/14/1443 Date of Service: 01/14/14819 Status: Signed Litigation Services Manager: Geovanna Whitman PT (Physical Therapist) 01/14/14819 PT Last Visit PT Received On 01/14/14 Reason for Treatment Deconditioning;Other (comment) (syncope, hypertensive event -1 each) Requires PT Follow Up Awaiting tx order Follow up PT Only? No PT Eval/Reassessment Date 01/14/14 Assistance Required 1 person Vp Design Needed No Precautions Other Precautions fall risk [...] walker Home Equipment None Additional Comments reji rodriguez [phone] or [phone] - niece lives here cyndy cooper rris([phone]) [phone] patient's cell phone Recommendation Recommendations Outpatient PT;Return to prior living situation Equipment Recommended None Prior Function Level of [place] Independent with functional mobility;Independent with ADLs;Independe nt [...] Eval/Reassessment Date 01/14/14 Assistance Required 1 person Vp Design Needed No Precautions Other Precautions fall risk [...] assist for balance- she was agreeable to outclayton morrell PT if she will be able [...] Balance Yes Dynamic Standing Balance Dynamic Standing-Comments/Duration Tinetti MARY High Level Balance Tandem Stance Hand hold [...] prior living situation Equipment Recommended None onversion Transa ction, Provider Unknown - 01/14/2014 4:54 AM PDT Nurse Progress Note by Jazmyn Young RN at 01/14/14 0454 Author: Jazmyn Young RN Service: (none) Author Type: Registered Nurse Filed: 01/14/14454 Date of Service: 01/14/14453 Status: Signed Litigation Services Manager: Jazmyn Young RN (Registered Nurse) No complaints of pain, slept most of the night. No concerns or questions raised. Mega Fisher, Provider Unknown - 01/13/2014 8:37 PM PDT Case Management by DREW Courtney at 01/13/142036 Author: DREW Courtney Service: (none) Author Type: Plug Saw Operator Filed: 01/13/142036 Date of Service: 01/13/142036 Status: Signed Litigation Services Manager: DREW Courtney (Plug Saw Operator) 01/13/142028 Discharge Planning Evaluation Admitting Diagnosis HTN [...] No Prescription Plan Yes Name of Pharmacy [facility] Previous home health equipment No Vascular access device No Ostomy/Drains/Appliances No Anticipated Disposition Facility Type Other (Comment) (Return home) Mega Fisher, Provider Unknown - 01/13/2014 2:48 PM PDT Therapy Progress Note by Jovi Jaramillo PT at 01/13/141447 Author: Jovi Jaramillo PT Service: (none) Author Type: Physical Therapist Filed: 01/13/141447 Date of Service: 01/13/141447 Status: Signed Litigation Services Manager: Jovi Jaramillo PT (Physical Therapist) 01/13/141447 PT Last Visit PT Received On 01/13/14 Requires PT Follow Up Unavailable (Ptis not currently in her room) onver edwar Transaction, Provider Unknown - 01/13/2014 12:44 PM PDT Progress Notes by Nicho Quezada RPH at 01/13/14 1244 Author: Nicho Quezada RPH Service: (none) Author Type: Pharmacist Filed: 01/13/14 1244 Date of Service: 01/13/14 1244 Status: Signed Litigation Services Manager: Nicho Quezada RPH (Pharmacist) Clinical Pharmacy Note: Renal Monitoring Cecile Huerta 83 y.o. female Ht Readings from Last 1 Encounters: No data found for Ht Wt Readings from Last 1 Encounters: No data found for Wt CREATININE Date Value Range Status 01/13/2014 0.64 0.50 - 1.00 mg/dL Final Testing performed at [facility];[address] [place] [address];[place] [address] Creatinine clearance cannot be calculated - Unknown ideal weight. Pharmacy dosing for renal function per Dr. Strickland. Currently, there are no medications needing to be adjusted. Pharmacy will continue to monit or for changes in medication orders and in renal function and adjust accordingly. Nicho Quezada RPh 01/13/2014 12:44 PM docume nted in this encounter H&P Notes Ray Strickland MD - 01/13/2014 12:05 PM PDTFormatting of this note might be different f rom the original. H&P by Ray Strickland MD at 01/13/14 1205 Author: Ray Strickland MD Service: (none) Author Type: Physician Filed: 01/13/14 1236 Date of Service: 01/13/14 1205 Status: Addendum Litigation Services Manager: Ray Strickland MD (Physician) Related Notes: Original Note by Ray Strickland MD (Physician) filed at 01/13/14 1232 [facility] Service: Hospitalist Admission History & Physical Date of Admission: 01/13/2014 Requesting Physician: daecon, Emergency Department Reason for Admission: Presyncope, vertigo History Obtained From: patient, family or friends present and er provider as well as the n ote available to me from prior er CHIEF COMPLAINT: dizziness HISTORY OF PRESENT ILLNESS The patient is a 83 y.o. female with significant past medical history of Past Medical History Diagnosis Date HTN (hypertension) GERD (gastroesophageal reflux disease) Hyperlipidemia Joint pain Unspecified visual disturbance who presents with (see below) additionally patient reports she has had episodes of vertig o sx's when she would lay back or at times move her head about. She also has sx's that are occuring at different times that are lightheadedness when standing up sometime, also feeling weak and lightheaded when she will begin to exert herself (not even taking much effort) she specifically denies dyspnea and chest discomfort of any kind when she is feeling this and s tates it is not the same as the vertigo. She reports he blood pressure has lately been runn ing higher and this am was sbp of 190 range and many times during the week would be in the 1 60-170 sbp range at times. She states she saw her pcp and had bp med changes with cutting w hat she thinks was the norvasc and adding what she thinks is lisinopril which was started ye sterday. She also is on an eye drop for allergies which was started recently. She had tele strips at prior facility showing what looks to be occasional sinus arrhythmia and then in s etting of some artifact in the baseline a pause of possibly 3 seconds from what i can tell. The ekg here shows sinus arrhythmia and nsr. She denies cardiac history, any prior cardiac workup. She reports seeing a neurologist [facility] 4-5 yrs ago in [place] for what sounds to be dementia and being placed on namenda or aricept which made her feel dizzy so she stopped it after a few months. She reports having what sound to be SANDRA's on her legs with her pcp and seeing someone (possibly vascular) for h at she thinks was varicose veins but denies any procedures. PER ER NOTE: """"Chief Complaint Chief Complaint Patient presents with Dizziness [facility] [place]. 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 Vertigo complaint, improved with meclizine and scopolomine patch that was placed after abnormal rhythm was noted.No troponin elevations. BP initially 201/72, now 110/70. CXR normal appearing. No new medication have been recently started. N o roller leveler has ever been established. No cardiac history. Labs unremarkable. The patient complains of dizziness. Onset of symptoms was over 2 weeks ago, with a consonta course since that time. The symptoms are described to be of moderate severity. The patien t describes the quality and location of the symptoms as the following: feeling dizzy when sh e wakes up, "like she is drunk", and then very tired in the middle of the day. Lightheaded at times, some vertigo that improved with meclizine.. The patient also complains of no ches t pain. Care prior to arrival consisted of evaluation at [facility], labs were unremarkab le, but had episode of second degree heart block. PCP: No primary provider on file. Patient with vague dizziness and fatigue, and episode at [facility] of possible second de gree heart block. Cannot be sure if this is true or artifact, because history not consisten t with near syncopal episodes, and rhythm strip was transient and looked a little artifactua l. ED Department Course 10:26. Hospitalist consult requested. Relevant history and workup of the case discussed w ith the hospitalist risk control consultant and they will evaluate patient in the emergency department for a dmission."""" REVIEW OF SYSTEMS Review of Systems Constitutional: Negative for: fever, chills,sweats or weight loss Eyes: Negative for: decreased vision or irritated ey es Nose: Negative for: nosebleed Throat: Negative for: mouth sores Cardiovascular/Respiratory: Negative for: chest pain, shortness of breath, cough Gastrointestinal: Negative for: abdominal pain, vomiting, diarrhea, bl ack or bloody stools Genitourinary: Negative for: dysuria, hematuria, urinary problems Musculoskeletal: Negative for: myalgias and arthralgias Skin: Negative for: laceration or lesion Neuro and psych: Negative for: fainting, head injury, seizure, trouble w alking Endocrine/Heme/Lymph: Negative for: swollen lymph nodes, easy bruising All systems reviewed and otherwise negative Past Medical History Diagnosis Date HTN (hypertension) GERD (gastroesophageal reflux disease) Past Surgical History Procedure Date Cholecystectomy Appendectomy Unlisted procedure arthroscopy r knee Cataracts ou Tonsillectomy No Known Allergies Prescriptions prior to admission Medication Sig Dispense Refill cycloSPORINE (RESTASIS) 0.05 % ophthalmic emulsion Place 1 drop into both eyes 2 (two) times daily. lisinopril (ZESTRIL) 5 MG tablet Take 5 mg by mouth daily. potassium chloride (K-DUR) 10 MEQ tablet Take 20 mEq by mouth daily. amLODIPine (NORVASC) 5 MG tablet Take 5 mg by mouth daily. aspirin 81 MG tablet Take 81 mg by mouth daily. naproxen sodium (ANAPROX) 220 MG tablet Take 220 mg by mouth 2 (two) times daily with m eals. omeprazole (PRILOSEC) 20 MG capsule Take 20 mg by mouth every morning before breakfast. simvastatin (ZOCOR) 20 MG tablet Take 20 mg by mouth nightly. UNKNOWN TO PATIENT "new bp med 01/13" UNKNOWN TO PATIENT "eye drops for cataracts" History reviewed. No pertinent family history. History Social History Marital Status: Spouse Name: N/A Number of Children: N/A Years of Education: N/A Occupational History Not on file. Social History Main Topics Smoking status: Never Smoker Smokeless tobacco: Not on file Alcohol Use: No Drug Use: No Sexually Active: Other Topics Concern Not on file Social History Narrative No narrative on file PHYSICAL EXAM Vital Signs: BP 125/60 | Pulse 59 | Temp 98.2 F (36.8 C) (Oral) | Resp 16 | SpO2 98% Physical Exam Gen: nad appears younger than stated age, in NAD Neck: no jvd, no lymphadenopathy, no bruits, no thyromegally HEENT: ncat, sclera clear, op clear mmm, Lungs: ctab Cv: reg, no murmur or rub Abd: pos bs nt nd soft no bruits, no rebound or guarding Ext: no edema no cords no calf tenderness Neuro: cn 2-12 grossly intact no clear foacal sensory or strength deficit Psych: a x o x 4, calm affect bright, pleasant Even with the scopolamine patch still on she had a positive debra halpike to the right withou t nystagmus neg to left DATA Results for CECILE HUERTA ( ) as of 01/13/2014 12:07 Ref. Range 01/13/2014 10:34 WBC Latest Range: 3.8-11.0 K/uL 7.2 RBC Latest Range: 3.70-5.10 M/uL 4.08 HGB Latest Range: 11.3-15.5 g/dL 12.5 HCT Latest Range: 34.0-46.0 % 35.9 MCV Latest Range: 80.0-100.0 fl 87.9 MCH Latest Range: 27.0-34.0 pg 30.6 MCHC Latest Range: 32.0-35.5 g/dL 34.8 RDW SD Latest Range: 37-53 fl 40.7 Platelets Latest Range: 150-400 K/uL 216 MPV No range found 8.3 DIFF TYPE No range found AUTOMATED NEUTROPHILS No range found 73.3 LYMPHOCYTES No range found 21.6 MONOCYTES No range found 4.4 EOSINOPHILS No range found 0.2 BASOPHILS No range found 0.5 NEUTROPHILS ABS Latest Range: 1.9-7.4 K/uL 5.2 LYMPHOCYTES ABS Latest Range: 1.0-3.9 K/uL 1.5 MONOCYTES ABS Latest Range: 0-0.8 K/uL 0.3 EOSINOPHILS ABS Latest Range: 0-0.5 K/uL 0.0 BASOPHILS ABS Latest Range: 0-0.1 K/uL 0.0 SODIUM Latest Range: 135-143 mmol/L 143 POTASSIUM Latest Range: 3.5-4.9 mmol/L 3.9 CHLORIDE Latest Range: 99-109 mmol/L 112 (H) CO2 Latest Range: 23-32 mmol/L 24 ANION GAP AGAP Latest Range: 5-20 mmol/L 11 GLUCOSE Latest Range: 65-99 mg/dL 109 (H) BUN Latest Range: 8-25 mg/dL 11 CREATININE Latest Range: 0.50-1.00 mg/dL 0.64 BUN/CREAT No range found 17 CALCIUM Latest Range: 8.5-10.2 mg/dL 8.3 (L) EGFR Latest Range: >60 mL/min/1.73m2 >60 PHOSPHORUS Latest Range: 2.3-4.8 mg/dL 3.2 MAGNESIUM Latest Range: 1.7-2.4 mg/dL 1.7 CK MB Latest Range: 0.5-3.6 ng/mL <0.5 (L) CPK Latest Range: 30-240 U/L 62 CK-MB Index No range found UNABLE TO CALCULATE TROPONIN I Latest Range: 0.00-0.10 ng/mL <0.020 BRAIN NATRIURETIC PEPTIDE Latest Range: 0-100 pg/mL 82.1 TSH Latest Range: 0.45-5.10 uIU/mL 2.36 FREE T4 Latest Range: 0.7-1.5 ng/dL 1.0 PATIENT REPORTS HAVING A CT OF HER HEAD AT PRIOR ER AND I AM AWAITING REPORT OF THIS I DO N OT SEE IT IN THE CURRENT PAPERWORK I HAVE EKG: nsr HEART RATE 77 WITH SINUS ARRHYTHMIA, GA 140 QT/QTC 408/[address]/T ABNORMAL ITIES OR Q WAVES THAT I SEE--AWAIT FORMAL CARDIOLOGY READING PROBLEM LIST Principal Problem: *Near syncope Active Problems: Lightheadedness Arrhythmia suspect sinus arrhythmia with occasional pause seen on tele strips prior to adm ission (in prior ER)--see paper charts HTN (hypertension) Vertigo--suspect BPV GERD (gastroesophageal reflux disease) Exercise intolerance--feels weak when she begins to exert herself ASSESSMENT & PLAN Near syncope (01/13/2014) Assessment: unclear specific etiology, no clear rhythm abnormality records that was signi ficant enough to clear suggest culprit and also do not have association of the sx's with the timing of the finding at this point either. Will need to consider arrhythmia as culprit an d watch on tele and check ekg again in the am. Will need to check an echo to look for valvu lar abnormality or other. Will check carotid dopplers as well. Will gently hydrate as tole rate, follow blood pressure, check orthostatic BP and pulses, will remove the scopolamine pa tch as the anticholinergic effect may contribute as well. Will instead use low dose meclizin e prn for this as if used and she then has sx's it would be easier to know this is a problem than if on the long acting med. If any notable finding (ie longer pauses, arrhythmia, ech o finding positive cardiac enzymes etc ) are found cardiology eval may be needed? Lightheadedness (01/13/2014) Assessment: as above Arrhythmia suspect sinus arrhythmia with occasional pause seen on tele strips prior to admi ssion (in prior ER)--see paper charts (01/13/2014) Assessment: will need to watch on tele and see if occurs and see if sx's associated also hard to tell if there are other surrounding abnormalities not seen on the small clips sent o f tele (ie could the pause have been post something like a fib and it was just resetting?) Follow electrolytes and replace prn, check Thyroif function HTN (hypertension) () Assessment: will c/w reported home meds and see how she does on them. Need remainder of med recc done missing meds now. Vertigo--suspect BPV (01/13/2014) Assessment: suspect BPV, but need to get brain CT results from prior ER, if there was not one done would need to get one here to eval for posterior ischemia, Also checking carotid dopplers, hopefully a good look at verterbrals at least for showing good flow. Will ask PT t o perform the Eply and see if this helps and if not may need outpatient vestibular follow up . will remove the scopolamine patch as the anticholinergic effect may contribute as well. W ill instead use low dose meclizine prn for this as if used and she then has sx's it would be easier to know this is a problem than if on the long acting med. GERD (gastroesophageal reflux disease) () Assessment: c/w ppi Exercise intolerance--feels weak when she begins to exert herself (01/13/2014) Assessment: no chest pain or dyspnea reported. Will check a cxr as I don't see one. Wi ll need echo and tele and PT eval. Gentle hydration. I have not order a stress test as no CP, but this could be looked into to eval exercise tolerance if no other culprit is seen but potentially as an outpatient unless something increasing concern comes up requiring before d/c. Disposition: Admit to OPO pending progress. Code Status: Full Code Primary Care Physician: MARIE STRICKLAND MD 01/13/2014 documented in this encounter ED Notes Conversion Transaction, Provider Unknown - 01/13/2014 11:29 AM PDTFormatting of this note m ight be different from the original. ED Notes by Tiffanie Ribera RN at 01/13/14 112 Author: Tiffanie Ribera RN Service: (none) Author Type: Registered Nurse Filed: 01/13/14 3713 Date of Service: 01/13/14 1129 Status: Signed Litigation Services Manager: Tiffanie Ribera RN (Registered Nurse) Dr bran at bedside Tiffanie Ribera RN 01/13/14 1130 onver edwar Transaction, Provider Unknown - 01/13/2014 9:54 AM PDT ED Notes by Tiffanie Ribera RN at 01/13/14 0954 Author: Tiffanie Ribera RN Service: (none) Author Type: Registered Nurse Filed: 01/13/1454 Date of Service: 01/13/14953 Status: Signed Litigation Services Manager: Tiffanie Ribera RN (Registered Nurse) Answered pt call light, pt requesting eye drops for her eyes, dr naylor informed Tiffanie Ribera RN 01/13/1454 awson , Germain Stallworth MD - 01/13/2014 9:49 AM PDTFormatting of this note might be different from the o riginal. ED Provider Notes by Germain Naylor MD at 01/13/1449 Author: Germain Naylor MD Service: (none) Author Type: Physician Filed: 01/17/1442 Date of Service: 01/13/14948 Status: Signed Litigation Services Manager: Germain Naylor MD (Physician) [facility] Department of Emergency Medicine History of Present Illness Patient Identification Lala Huerta is a 83 y.o. female. Patient information was obtained from patient. History/Exam limitations: none. Patient presented to the Emergency Department by: Ambulance Chief Complaint Chief Complaint Patient presents with Dizziness [facility] [place]. 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 Vertigo complaint, improved with meclizine and scopolomine pa tch that was placed after abnormal rhythm was noted.No troponin elevations. BP initially 20 1/72, now 110/70. CXR normal appearing. No new medication have been recently started. No roller leveler has ever been established. No cardiac history. Labs unremarkable. The patient complains of dizziness. Onset of symptoms was over 2 weeks ago, with a consonta course since that time. The symptoms are described to be of moderate severity. The patiaugustina t describes the quality and location of the symptoms as the following: feeling dizzy when sh carine wakes up, "like she is drunk", and then very tired in the middle of the day. Lightheaded at times, some vertigo that improved with meclizine.. The patient also complains of no ches t pain. Care prior to arrival consisted of evaluation at [facility], labs were unremarkab le, but had episode of second degree heart block. PCP: No primary provider on file. Past Medical History Diagnosis Date HTN (hypertension) GERD (gastroesophageal reflux disease) Past Surgical History Procedure Date Cholecystectomy Appendectomy Unlisted procedure arthroscopy r knee Cataracts ou Tonsillectomy Prior to Admission medications Medication Sig Start Date End Date Taking? Authorizing Provider amLODIPine (NORVASC) 5 MG tablet Take 5 mg by mouth daily. Yes Historical Provider aspirin 81 MG tablet Take 81 mg by mouth daily. Yes Historical Provider naproxen sodium (ANAPROX) 220 MG tablet Take 220 mg by mouth 2 (two) times daily with meals . Yes Historical Provider omeprazole (PRILOSEC) 20 MG capsule Take 20 mg by mouth every morning before breakfast. Y es Historical Provider simvastatin (ZOCOR) 20 MG tablet Take 20 mg by mouth nightly. Yes Historical Provider UNKNOWN TO PATIENT "new bp med 01/13" Yes Historical Provider UNKNOWN TO PATIENT "eye drops for cataracts" Yes Historical Provider No Known Allergies History Social History Marital Status: N/A Spouse Name: N/A Number of Children: N/A Years of Education: N/A Occupational History Not on file. Social History Main Topics Smoking status: Never Smoker Smokeless tobacco: Not on file Alcohol Use: Drug Use: Sexually Active: Other Topics Concern Not on file Social History Narrative No narrative on file History reviewed. No pertinent family history. Review of Systems Constitutional: Negative for: fever, chills,sweats or weight loss Eyes: Negative for: decreased vision or irritated eyes Nose: Negative for: nosebleed Throat: Negative for: mouth sores Cardiovascular/Respiratory: Negative for: chest pain, shortness of breath, cough Gastrointestinal: Negative for: abdominal pain, vomiting, diarrhea, black or bloody stools Genitourinary: Negative for: dysuria, hematuria, urinary problems Musculoskeletal: Negative for: myalgias and arthralgias Skin: Negative for: laceration or lesion Neuro and psych: Negative for: fainting, head injury, seizure, trouble walking Endocrine/Heme/Lymph: Negative for: swollen lymph nodes, easy bruising All systems reviewed and otherwise negative Physical Exam BP 150/69 | Pulse 78 | Temp 97.5 F (36.4 C) (Oral) | Resp 16 | SpO2 96% Vital signs reviewed and midl hyeprtension Pulse Oximetry interpretation: Normal General: Alert, in no apparent distress Eyes: Normal inspection, pupils equal and round, non-icteric ENT: Ears normal Nose normal Pharynx normal Neck: Normal inspection Supple No lymphadenopathy No meningismus Cardiovascular: Rate and rhythm normal No murmurs Respiratory: Breath sounds normal bilaterally Abdomen: Soft, non-tender, non-distended No guarding or rebound Genitourinary: Deferred Rectal exam: Deferred Back: Normal inspection Skin: Color normal Warm and dry No rash Neuro: No motor deficit No sensory deficit No confusion Medical Decision Making and Emergency Department Course Patient with vague dizziness and fatigue, and episode at [facility] of possible second de gree heart block. Cannot be sure if this is true or artifact, because history not consisten t with near syncopal episodes, and rhythm strip was transient and looked a little artifactua l. ED Department Course 10:26. Hospitalist consult requested. Relevant history and workup of the case discussed w ith the hospitalist risk control consultant and they will evaluate patient in the emergency department for a dmission. Records Reviewed Old medical records. Laboratory Evaluation Labs Reviewed - No data to display Results No Results found for the last 72 hours. Available Labs reviewed and interpreted by me. Radiology Evaluation Imaging Results None Available radiology studies reviewed and interpreted contemporaneously by me. EKG Interpretation Rhythm: Sinus Ventricular Rate: 77 GA Interval: Normal ST Segments: Normal Significant Q-waves: None Blocks: None ED Diagnoses Final diagnoses Dizziness Arrhythmia Disposition: ED Disposition Admit/Observation Bed request special needs: None Diagnosis?: dizziness, second degree heart block (transient) Additional Documentation Procedures Germain Naylor MD 01/17/14 0942 onversion Transacti on, Provider Unknown - 01/13/2014 9:40 AM PDTFormatting of this note might be different fro m the original. ED Notes by Tiffanie Ribera RN at 01/13/14939 Author: Tiffanie Ribera RN Service: (none) Author Type: Registered Nurse Filed: 01/13/14941 Date of Service: 01/13/14939 Status: Signed Litigation Services Manager: Tiffanie Ribera RN (Registered Nurse) Pt reports she went to ED feeling dizzy, nausea, and fatigue. While there she had episode o f second degree heart block type 2, arrives in sinus rhythm, placed on continuous cardiac mo nitor with pulse oximetry, tele aware. Pt arrives with scolpamine patch behind L ear reports symptoms resolved at this time Tiffanie Ribera RN 01/13/14941 onver edwar Transaction, Provider Unknown - 01/13/2014 9:22 AM PDT ED Notes by Arleen Hill RN at 01/13/14921 Author: Arleen Hill RN Service: (none) Author Type: Registered Nurse Filed: 01/13/14921 Date of Service: 01/13/14921 Status: Signed Litigation Services Manager: Arleen Hill RN (Registered Nurse) Bed:10
Expected date:01/13/14
Expected time: 9:11 AM
Means of arrival:
Comm ents:
docume nted in this encounter Miscellaneous Notes Plan of Care - Conversion Transaction, Provider Unknown - 01/14/2014 9:29 AM PDT Plan of Care by Rhona Amanda RN at 01/14/14928 Author: Rhona Amanda RN Service: (none) Author Type: Registered Nurse Filed: 01/14/14928 Date of Service: 01/14/14928 Status: Signed Litigation Services Manager: Rhona Amanda RN (Registered Nurse) Problem: Pain Goal: Patient s pain/discomfort is manageable Assess and monitor patient s pain using appropriate pain scale. Collaborate with interdis ciplinary team and initiate plan and interventions as ordered. Re-assess patient s pain le andrew approximately 1-2 hours after pain management intervention. Premedicate as needed. Outcome: Progressing Pt informed that if she is in pain to use call light that is within reach. Encourage her to self regulate pain and let nurse know if she begins to start having pain. Problem: Safety Goal: Patient will be injury free during hospitalization Assess and monitor vitals signs, neurological status including level of consciousness and o rientation. Assess patient s risk for falls and implement fall prevention plan of care and interventions per hospital policy. Ensure arm band on, uncluttered walking paths in room, adequate room lighting, call light a nd overbed table within reach, bed in low position, wheels locked, side rails up per policy, and non-skid footwear provided. Outcome: Progressing Pt has call light within reach, able to communicate w/ me if she is having any issues. docume nted in this encounter Plan of [...] EXTERNAL | | | | performed at [facility];[address] | | LAB | | | | [address];[place], [place] | | | | | | [address] | | | | + + + [...] | | | | | | ACUTE [place] Testing | | | | | | performed at [facility];[address] | | | | | | [address];[place], [place] | | | | | | [address] | | | | + + + [...] | | | | | [place] [address] | | | | + + + + + + | Red Blood | 3.70Comment: Testing | 3.70 - 5.10 | EXTERNAL | | | Cells | performed at [facility], [address] | M/uL | LAB | | | Counted | [address], | | | | | | [place] [address] | | | | + + + + + + | Hemoglobin | 11.3Comment: Testing | 11.3 - 15.5 | EXTERNAL | | | | performed at [facility], [address] | g/dL | LAB | | | | [address], | | | | | | [place] [address] | | | | + + + + + + | Hematocrit, | 33.3 (L)Comment: Testing | 34.0 - 46.0 % | EXTERNAL | | | POC | performed at [facility], [address] | | LAB | | | | [address], | | | | | | [place] [address] | | | | + + + + + + | MCV | 89.8Comment: Testing | 80.0 - 100.0 fl | EXTERNAL | | | | performed at [facility], [address] | | LAB | | | | [address], | | | | | | [place] [address] | | | | + + + + + + | MCH | 30.6Comment: Testing | 27.0 - 34.0 pg | EXTERNAL | | | | performed at [facility], [address] | | LAB | | | | [address], | | | | | | [place] [address] | | | | + + + + + + | MCHC | 34.1Comment: Testing | 32.0 - 35.5 | EXTERNAL | | | | performed at [facility], [address] | g/dL | LAB | | | | [address], | | | | | | [place] [address] | | | | + + + + + + | RDW-CV | 42.4Comment: Testing | 37 - 53 fl | EXTERNAL | | | | performed at [facility], [address] | | LAB | | | | [address], | | | | | | [place] [address] | | | | + + + + + + | Platelet | 173Comment: Testing | 150 - 400 K/uL | EXTERNAL | | | Count | performed at [facility], [address] | | LAB | | | Plasma | [address], | | | | | | [place] [address] | | | | + + + + + + | MPV | 8.6Comment: Testing | fl | EXTERNAL | | | | performed at [facility], [address] | | LAB | | | | [address], | | | | | | [place] [address] | | | | + + + + + + | Differentia | AUTOMATEDComment: | | EXTERNAL | | | l Type | Testing performed at | | LAB | | | | [facility], [address] | | | | | | [place] | | | | | | [address] | | | | + + + + + + | % Segmented | 41.0Comment: Testing | % | EXTERNAL | | | | performed at [facility], [address] | | LAB | | | Neutrophils | [address], | | | | | | [place] [address] | | | | + + + + + + | % | 47.9Comment: Testing | % | EXTERNAL | | | Lymphocytes | performed at [facility], [address] | | LAB | | | | [address], | | | | | | [place] [address] | | | | + + + + + + | % Monocytes | 8.2Comment: Testing | % | EXTERNAL | | | | performed at [facility], [address] | | LAB | | | | [address], | | | | | | [place] [address] | | | | + + + + + + | % | 2.1Comment: Testing | % | EXTERNAL | | | Eosinophils | performed at [facility], [address] | | LAB | | | | [address], | | | | | | [place] [address] | | | | + + + + + + | % Basophils | 0.8Comment: Testing | % | EXTERNAL | | | | performed at [facility], [address] | | LAB | | | | [address], | | | | | | [place] [address] | | | | + + + + + + | Absolute | 2.3Comment: Testing | 1.9 - 7.4 K/uL | EXTERNAL | | | Segmented | performed at [facility], [address] | | LAB | | | Neutrophils | [address], | | | | | | [place] [address] | | | | + + + + + + | Absolute | 2.7Comment: Testing | 1.0 - 3.9 K/uL | EXTERNAL | | | Lymphocytes | performed at [facility], [address] | | LAB | | | | [address], | | | | | | [place] [address] | | | | + + + + + + | Absolute | 0.5Comment: Testing | 0 - 0.8 K/uL | EXTERNAL | | | Monocytes | performed at [facility], [address] | | LAB | | | | [address], | | | | | | [place] [address] | | | | + + + + + + | Absolute | 0.1Comment: Testing | 0 - 0.5 K/uL | EXTERNAL | | | Eosinophils | performed at [facility], [address] | | LAB | | | | [address], | | | | | | [place] [address] | | | | + + + + + + | Absolute | 0.0Comment: Testing | 0 - 0.1 K/uL | EXTERNAL | | | Basophils | performed at [facility], [address] | | LAB | | | | [address], | | | | | | [place] [address] | | | | + + + [...] EXTERNAL | | | | performed at [facility], [address] | | LAB | | | | [address], | | | | | | [place] [address] | | | | + + + [...] EXTERNAL | | | | performed at [facility], [address] | | LAB | | | | [address], | | | | | | [place] [address] | | | | + + + [...] + + | Hemoglobin | 5.2Comment: [place] | 4.0 - 6.0 % | EXTERNAL [...] | | | | | performed at [facility], [address] | | | | | | [address], | | | | | | [place] [address] | | | | + + + [...] | | | | | performed at [facility], [address] | | | | | | [address], | | | | | | [place] [address] | | | | + + + [...] EXTERNAL | | | | performed at [facility];[address] | | LAB | | | | [address];[place], [place] | | | | | | [address] | | | | + + + [...] | | | | | [place] [address] | | | | + + + + + + | Triglycerid | 98Comment: Testing | mg/dL | EXTERNAL | | | es | performed at [facility], [address] | | LAB | | | | [address], | | | | | | [place] [address] | | | | + + + + + + | HDL | 46Comment: Testing | mg/dL | EXTERNAL | | | | performed at [facility], [address] | | LAB | | | | [address], | | | | | | [place] [address] | | | | + + + + + + | LDL, | 54Comment: Testing | mg/dL | EXTERNAL | | | Calculated | performed at [facility], [address] | | LAB | | | | [address], | | | | | | [place] [address] | | | | + + + [...] mmol/L | LAB | | | | [address], | | | | | | [place] [address] | | | | + + + + + + | K | 3.8Comment: Testing | 3.5 - 4.9 | EXTERNAL | | | | performed at [facility], [address] | mmol/L | LAB | | | | [address], | | | | | | [place] [address] | | | | + + + + + + | Cl | 112 (H)Comment: Testing | 99 - 109 mmol/L | EXTERNAL | | | | performed at [facility], [address] | | LAB | | | [address], | | | | | | [place] [address] | | | | + + + + + + | CO2 | 25Comment: Testing | 23 - 32 mmol/L | EXTERNAL | | | | performed at [facility], [address] | | LAB | | | | [address], | | | | | | [place] [address] | | | | + + + + + + | Anion Gap | 8Comment: Testing | 5 - 20 mmol/L | EXTERNAL | | | | performed at [facility], [address] | | LAB | | | | [address], | | | | | | [place] [address] | | | | + + + + + + | Glucose, | 90Comment: Testing | 65 - 99 mg/dL | EXTERNAL | | | Fasting | performed at [facility], [address] | | LAB | | | | [address], | | | | | | [place] [address] | | | | + + + + + + | BUN | 19Comment: Testing | 8 - 25 mg/dL | EXTERNAL | | | | performed at [facility], [address] | | LAB | | | | [address], | | | | | | [place] [address] | | | | + + + + + + | Creatinine | 1.00Comment: Testing | 0.50 - 1.00 | EXTERNAL | | | | performed at [facility], [address] | mg/dL | LAB | | | | [address], | | | | | | [place] [address] | | | | + + + + + + | BUN/Creatin | 19Comment: Testing | | EXTERNAL | | | ine Ratio | performed at [facility], [address] | | LAB | | | | [address], | | | | | | [place] [address] | | | | + + + + + + | Calcium | 8.4 (L)Comment: Testing | 8.5 - 10.2 | EXTERNAL | | | | performed at [facility], [address] | mg/dL | LAB | | | | [address], | | | | | | [place] [address] | | | | + + + [...] | | | | | | at [facility], [address] | | | | | | [address], | | | | | | [place] [address] | | | | + + + [...] + + | Historically converted procedure from [employer] Epic environment | EXTERNAL LAB | + [...] EXTERNAL | | | | performed at [facility];[address] | | LAB | | | | [address];[place], [place] | | | | | | [address] | | | | + + + [...] | | | | | | ACUTE [place] Testing | | | | | | performed at [facility];[address] | | | | | | [facility];[place], [place] | | | | | | [address] | | | | + + + [...] EXTERNAL | | | | performed at [facility];[address] | | LAB | | | | [address];[place] | | | | | | [address] | | | | + + + [...] EXTERNAL | | | | performed at [facility] | | LAB | | | | [address];[place] | | | | | | [address] | | | | + + + + + + | Clarity | CLEARComment: Testing | | EXTERNAL | | | | performed at [facility];[address] | | LAB | | | | [address];[place] | | | | | | [address] | | | | + + + + + + | Specific | 1.020Comment: Testing | 1.001 - 1.035 | EXTERNAL | | | [place], | performed at [facility];[address] | | LAB | | | Urine | [address];[place] | | | | | | [address] | | | | + + + + + + | Leukocyte | TRACE (A)Comment: | | EXTERNAL | | | Esterase, | Testing performed at | | LAB | | | Urine | [facility];[address] | | | | | | [address];[place] [address] | | | | + + + + + + | Nitrite, | NEGATIVEComment: Testing | | EXTERNAL | | | Urine | performed at [facility];[address] | | LAB | | | | [address];[place] | | | | | | [address] | | | | + + + + + + | Urobilinoge | 0.2Comment: Testing | mg/dL | EXTERNAL | | | n, Urine | performed at [facility];[address] | | LAB | | | | [address];[place] | | | | | | [address] | | | | + + + + + + | Protein, | NEGATIVEComment: Testing | mg/dL | EXTERNAL | | | Urine | performed at [facility];[address] | | LAB | | | | [address];[place] | | | | | | [address] | | | | + + + + + + | pH, Urine | 6.5Comment: Testing | 4.6 - 8.0 | EXTERNAL | | | | performed at [facility];[address] | | LAB | | | | [address];[place] | | | | | | [address] | | | | + + + + + + | Blood, | NEGATIVEComment: Testing | | EXTERNAL | | | Urine | performed at [facility];[address] | | LAB | | | [address];[place] | | | | | | [address] | | | | + + + + + + | Ketones | NEGATIVEComment: Testing | mg/dL | EXTERNAL | | | | performed at [facility];[address] | | LAB | | | | [address];[place] | | | | | | [address] | | | | + + + + + + | Bilirubin, | NEGATIVEComment: Testing | | EXTERNAL | | | Urine | performed at [facility];[address] | | LAB | | | | [address];[place] | | | | | | [address] | | | | + + + + + + | Glucose, | NEGATIVEComment: Testing | mg/dL | EXTERNAL | | | Urine | performed at [facility];[address] | | LAB | | | | [address];[place], [place] | | | | | | [address] | | | | + + + [...] EXTERNAL | | | | performed at [facility];[address] | | LAB | | | | [address];[place] | | | | | | [address] | | | | + + + + + + | RBC, UA | NONE SEENComment: | 0 - 5 /hpf | EXTERNAL | | | | Testing performed at | | LAB | | | | [facility];[address];[place] [address] | | | | + + + + + + | Epithelial | NONE SEENComment: | /lpf | EXTERNAL | | | Cells | Testing performed at | | LAB | | | | [facility];[address];[place] [address] | | | | + + + + + + | Bacteria, | NONE SEENComment: | | EXTERNAL | | | UA | Testing performed at | | LAB | | | | [facility];[address];[place] [address] | | | | + + + + + + | Mucus, | 1+Comment: Testing | | EXTERNAL | | | Urine | performed at [facility];[address] | | LAB | | | [address];[place], [place] | | | | | | [address] | | | | + + + [...] 65 - 70 %. 2. There is pxxx-wg-hckmbtqo aortic regurgitation. | | | 3. Moderate [...] %. | | | 2. There is zhks-xq-jnrvvjfp aortic regurgitation. 3. Moderate | | | [...] Aortic Valve: There is | | | vcnh-km-fpckhvcj aortic regurgitation. Mitral Valve: Mitral valve is [...] | | D-E Excursion: 1.32 cm E-F [place]: 0.03 m/s TAPSE: 2.54 cm | | | IVC diameter: 2.08 cm IVC collapse: 1.17 cm IVC % collapse: | | | 41.66 % AR Dec [place]: 1.67 m/s2 AR Dec Time: 2312.76 ms [...] 0.22 m/s TV | | | Dec [place]: 1.69 m/s2 TV Dec Time: 356.97 ms TV E Andrew: 0.60 | | | m/s TV E/A Ratio: 2.66 Warehouse Distribution Specialist: Authenticated by: Yaquelin | | | Laura CROSS Report Date/Time: 01-13-2014 19:17:49 | | + + + + + | Procedure Note | + + | Og James Conversion - 03/19/2019 3:49 PM PDT Patient Name: Remington HUERTA of | | : 1930 Performing Physician: Yaqeulin Sanchez | | INDICATIONS A | | bnormal EKG - Dizziness, possiblepauses, lightheadedness CONCLUSIONS 1. | | Overall left ventricular systolic function is normal with, an EF between 65 - 70 %.2. | | There is vkul-yo-emqiqjwz aortic regurgitation.3. Moderate tricuspid regurgitation | | [...] without | | stenosis.Aortic Valve: There is keuq-wu-qfqwhhym aortic regurgitation.Mitral Valve: | | Mitral valve [...] 17.72 mlLVLs A4C: 4.52 cmLAAd A4C: 12.60 sk4PNESK A-L A4C: 35.26 mlLAEDV MOD A4C: | | 31.49 mlLALd A4C: 3.82 cmAo Diam: 2.71 cmAV Cusp: 1.42 cmLA Diam: 3.26 | | cmLA/Ao: 1.20%FS: 43.75 %EDV(Teich): 54.77 mlEF(Teich): 75.85 %ESV(Teich): | | 13.22 mlIVSd: 1.01 cmIVSs: 1.32 cmLVIDd: 3.60 cmLVIDs: 2.03 cmLVPWd: 0.95 | | cmLVPWs: 1.52 cmSV(Teich): 41.55 mlD-E Excursion: 1.32 cmE-F [place]: 0.03 | | m/sTAPSE: 2.54 cmIVC diameter: 2.08 cmIVC collapse: 1.17 cmIVC % collapse: 41.66 | | %AR Dec [place]: 1.67 m/s2AR Dec Time: 2312.76 msAR maxP.80 mmHgAR PHT: | | 670.70 msAR Vmax: 3.86 m/sHR: 58.77 BPMAV maxP.20 mmHgAV meanP.74 mmHgAV | | Vmax: 1.34 m/Ronak Vmean: 0.92 m/Ronak VTI: 32.08 cmAVA Vmax: 1.68 cm2AVA (VTI): | | 1.52 qh0HPAG Dopp: 1.67 l/nsoh2NKVL Dopp: 2.71 l/minHR: 55.57 BPMLVOT maxPG: | [...] 2.37 m/sTV A Andrew: 0.22 m/sTV Dec [place]: 1.69 m/s2TV Dec Time: | | 356.97 msTV E Andrew: 0.60 m/sTV E/A Ratio: 2.66 Warehouse Distribution Specialist: ASAuthenticated by: Yaquelin | | Laura MDReport Date/Time: 01-13-2014 19:17:49 IMPRESSION: 1. Overall left ventricular | | systolic function is normal with, an EF between 65 - 70 %.2. There is vuxu-pk-hdkuehar | | aortic regurgitation.3. Moderate tricuspid regurgitation [...] | |D-E Excursion: 1.32 cm | |E-F [place]: 0.03 m/s | |TAPSE: 2.54 cm | |IVC diameter: 2.08 cm | |IVC collapse: 1.17 cm | |IVC % collapse: 41.66 % | |AR Dec [place]: 1.67 m/s2 | |AR Dec Time: 2312.76 [...] A Andrew: 0.22 m/s | |TV Dec [place]: 1.69 m/s2 | |TV Dec Time: 356.97 ms | |TV E Andrew: 0.60 m/s | |TV E/A Ratio: 2.66 | | | |Warehouse Distribution Specialist: | |Authenticated by: Yaquelin Sanchez MD | |Report Date/Time: 01-13-2014 19:17:49 | | | |IMPRESSION: | |1. Overall left ventricular systolic function is normal with, an EF between 65 - 70 %. | |2. There is fcgo-vc-lwbbdebd aortic regurgitation. | |3. Moderate tricuspid regurgitation [...] EXTERNAL | | | | performed at [facility];[address] | | LAB | | | | [address];[place] | | | | | | [address] | | | | + + + [...] | | | | | | ACUTE [place] Testing | | | | | | performed at [facility] | | | | | | [facility];[place], [place] | | | | | | [address] | | | | + + + [...] EXTERNAL | | | | performed at [facility];[address] | | LAB | | | | [address];[place], [place] | | | | | | [address] | | | | + + + [...] Jacob, Rad Conversion - 03/19/2019 3:49 PM PDT CECILE ELMORE CAROTID DOPPLER, | | BILATERAL01/13/2014 3:12 [...] James Conversion - 03/19/2019 3:49 PM PDT HISTORY: | [...] EXTERNAL | | | | performed at [facility] | | LAB | | | | [address];[place], [place] | | | | | | [address] | | | | + + + [...] | | | | | | ACUTE [place] Testing | | | | | | performed at [facility];[address] | | | | | | [facility];[place], [place] | | | | | | [address] | | | | + + + [...] EXTERNAL | | | | performed at [facility];[address] | | LAB | | | [address];[place], [place] | | | | | | [address] | | | | + + + [...] EXTERNAL | | | | performed at [facility];[address] | | LAB | | | | [address];[place] | | | | | | [address] | | | | + + + + + + | CK-MB Index | UNABLE TO | | EXTERNAL | | | | CALCULATEComment: | | LAB | | | | Testing performed at | | | | | | [facility];[address];[place] [address] | | | | + + + [...] | | | | | | ACUTE [place] Testing | | | | | | performed at [facility];[address] | | | | | | [address];[place], [place] | | | | | | [address] | | | | + + + + + + + + | Specimen | + + | Blood specimen | | (specimen) | + + + +---------+ + + | Performing | Address | City/State/Zipcode | Phone Number | | Organization | | | | + +---------+ + + | EXTERNAL LAB | | | | + +---------+ + + External Lab: [facility] (01/13/2014 10:34 AM PDT) + + + + + + | Component | Value | Ref Range | Performed | Pathologist | | | | | At | Signature | + + + + + + | WBC | 7.2Comment: Testing | 3.8 - 11.0 K/uL | EXTERNAL | | | | performed at [facility];[address] | | LAB | | | | [address];[place] | | | | | | [address] | | | | + + + + + + | Red Blood | 4.08Comment: Testing | 3.70 - 5.10 | EXTERNAL | | | Cells | performed at [facility];[address] | M/uL | LAB | | | Counted | [address];[place] | | | | | | [address] | | | | + + + + + + | Hemoglobin | 12.5Comment: Testing | 11.3 - 15.5 | EXTERNAL | | | | performed at [facility];[address] | g/dL | LAB | | | | [address];[place] | | | | | | [address] | | | | + + + + + + | Hematocrit, | 35.9Comment: Testing | 34.0 - 46.0 % | EXTERNAL | | | POC | performed at [facility];888 | | LAB | | | | [address];[place] | | | | | | [address] | | | | + + + + + + | MCV | 87.9Comment: Testing | 80.0 - 100.0 fl | EXTERNAL | | | | performed at [facility];888 | | LAB | | | | [address];[place] | | | | | | [address] | | | | + + + + + + | MCH | 30.6Comment: Testing | 27.0 - 34.0 pg | EXTERNAL | | | | performed at [facility];888 | | LAB | | | | [address];[place] | | | | | | [address] | | | | + + + + + + | MCHC | 34.8Comment: Testing | 32.0 - 35.5 | EXTERNAL | | | | performed at [facility];888 | g/dL | LAB | | | | [address];[place] | | | | | | [address] | | | | + + + + + + | RDW-CV | 40.7Comment: Testing | 37 - 53 fl | EXTERNAL | | | | performed at [facility];[address] | | LAB | | | | [address];[place] | | | | | | [address] | | | | + + + + + + | Platelet | 216Comment: Testing | 150 - 400 K/uL | EXTERNAL | | | Count | performed at [facility];888 | | LAB | | | Plasma | [address];[place] | | | | | | [address] | | | | + + + + + + | MPV | 8.3Comment: Testing | fl | EXTERNAL | | | | performed at [facility];[address] | | LAB | | | | [address];[place] | | | | | | [address] | | | | + + + + + + | Differentia | AUTOMATEDComment: | | EXTERNAL | | | l Type | Testing performed at | | LAB | | | | [facility];[address];[place] [address] | | | | + + + + + + | % Segmented | 73.3Comment: Testing | % | EXTERNAL | | | | performed at [facility];888 | | LAB | | | Neutrophils | [address];[place] | | | | | | [address] | | | | + + + + + + | % | 21.6Comment: Testing | % | EXTERNAL | | | Lymphocytes | performed at [facility];[address] | | LAB | | | | [address];[place] | | | | | | [address] | | | | + + + + + + | % Monocytes | 4.4Comment: Testing | % | EXTERNAL | | | | performed at [facility];[address] | | LAB | | | | [address];[place] | | | | | | [address] | | | | + + + + + + | % | 0.2Comment: Testing | % | EXTERNAL | | | Eosinophils | performed at [facility];[address] | | LAB | | | | [address];[place] | | | | | | [address] | | | | + + + + + + | % Basophils | 0.5Comment: Testing | % | EXTERNAL | | | | performed at [facility];[address] | | LAB | | | | [address];[place] | | | | | | [address] | | | | + + + + + + | Absolute | 5.2Comment: Testing | 1.9 - 7.4 K/uL | EXTERNAL | | | Segmented | performed at [facility];888 | | LAB | | | Neutrophils | [address];[place] | | | | | | [address] | | | | + + + + + + | Absolute | 1.5Comment: Testing | 1.0 - 3.9 K/uL | EXTERNAL | | | Lymphocytes | performed at [facility];888 | | LAB | | | | [address];[place] | | | | | | [address] | | | | + + + + + + | Absolute | 0.3Comment: Testing | 0 - 0.8 K/uL | EXTERNAL | | | Monocytes | performed at [facility];[address] | | LAB | | | | [address];[place] | | | | | | [address] | | | | + + + + + + | Absolute | 0.0Comment: Testing | 0 - 0.5 K/uL | EXTERNAL | | | Eosinophils | performed at [facility];[address] | | LAB | | | | [address];[place] | | | | | | [address] | | | | + + + + + + | Absolute | 0.0Comment: Testing | 0 - 0.1 K/uL | EXTERNAL | | | Basophils | performed at [facility];88 | | LAB | | | | [address];[place], [place] | | | | | | [address] | | | | + + + [...] EXTERNAL | | | | performed at [facility];888 | uIU/mL | LAB | | | | [facility];[place], [place] | | | | | | [address] | | | | + + + [...] | | | (REF) | performed at [facility];888 | | LAB | | | | [address];[place] | | | | | | [address] | | | | + + + [...] EXTERNAL | | | | performed at [facility];888 | | LAB | | | | [address];[place], [place] | | | | | | [address] | | | | + + + [...] EXTERNAL | | | | performed at [facility];888 | | LAB | | | | [facility];[place], [place] | | | | | | [address] | | | | + + + [...] EXTERNAL | | | | performed at [facility];[address] | | LAB | | | | [address];[place], [place] | | | | | | [address] | | | | + + + [...] EXTERNAL | | | | performed at [facility];888 | | LAB | | | | [address];[place] | | | | | | [address] | | | | + + + [...] EXTERNAL | | | | performed at [facility];888 | mmol/L | LAB | | | | [address];[place] | | | | | | [address] | | | | + + + + + + | K | 3.9Comment: Testing | 3.5 - 4.9 | EXTERNAL | | | | performed at [facility];888 | mmol/L | LAB | | | | [address];[place] | | | | | | [address] | | | | + + + + + + | Cl | 112 (H)Comment: Testing | 99 - 109 mmol/L | EXTERNAL | | | | performed at [facility];[address] | | LAB | | | | [address];[place] | | | | | | [address] | | | | + + + + + + | CO2 | 24Comment: Testing | 23 - 32 mmol/L | EXTERNAL | | | | performed at [facility];[address] | | LAB | | | | [address];[place] | | | | | | [address] | | | | + + + + + + | Anion Gap | 11Comment: Testing | 5 - 20 mmol/L | EXTERNAL | | | | performed at [facility];[address] | | LAB | | | | [address];[place] | | | | | | [address] | | | | + + + + + + | Glucose, | 109 (H)Comment: Testing | 65 - 99 mg/dL | EXTERNAL | | | Fasting | performed at [facility];[address] | | LAB | | | | [address];[place] | | | | | | [address] | | | | + + + + + + | BUN | 11Comment: Testing | 8 - 25 mg/dL | EXTERNAL | | | | performed at [facility];[address] | | LAB | | | | [address];[place] | | | | | | [address] | | | | + + + + + + | Creatinine | 0.64Comment: Testing | 0.50 - 1.00 | EXTERNAL | | | | performed at [facility];888 | mg/dL | LAB | | | | [address];[place] | | | | | | [address] | | | | + + + + + + | BUN/Creatin | 17Comment: Testing | | EXTERNAL | | | ine Ratio | performed at [facility];[address] | | LAB | | | | [address];[place] | | | | | | [address] | | | | + + + + + + | Calcium | 8.3 (L)Comment: Testing | 8.5 - 10.2 | EXTERNAL | | | | performed at [facility];888 | mg/dL | LAB | | | | [address];[place] | | | | | | [address] | | | | + + + [...] | | | | | | at [facility];[address] [place] [address] | | | | | | [facility];[place] [address] | | | | + + + [...] | | | | | ONLY, -COMPUTER (500), | | | | | | scientific publications editor Jose Enrique Fernandez | | | | | | (35) on 01/13/2014 | | | | | | 2:09:29 PM | | | | + + + + + + + + | Specimen | + + | | + + + + + | Narrative | Performed At | + + + | Historically converted procedure from [employer] environment | EXTERNAL LAB | + [...]
--- OUTSIDE RECORDS SUMMARY | ~2020-01-28 | XMS | Encounter Summary ---
Demographics + + + | Address | [address] | | | [place] [address] | + + + | Home Phone | | + + + | Preferred Language | Unknown | + + + | Marital Status | | + + + | Holiness Affiliation | Unknown | + + + | Race | Unknown | + + + | Ethnic Group | Unknown | + + + Author + + + | Author | [facility] | | | and [place] | + + + | Organization | [facility] | | [...] [place] | | | | | [address] | | + + + + + | Cnydy Mcneal | ECON | [place] | | | | | [address] | | + + + + + Care Team Providers + +------+ + | Care Snowmobile Mechanic Name | Role | Phone | + +------+ + PCP | Unavailable | + +------+ + Encounter Details +--------+ + + + + | Date | Type | Department | Care Team | Description | +--------+ + + + + | 02/22/ | Hospital | [facility] | | | | 2001 - | Encounter | [facility] | | | | | | [facility]red[facility] | | | | 05/23/ | | [place] | | | | 2001 | | [address] | | | | | | [phone] | | | +--------+ + + + [...]
--- OUTSIDE RECORDS SUMMARY | ~2020-01-28 | XMS | Encounter Summary ---
Demographics + + + | Address | [address] | | | [place] [address] | + + + | Home Phone | | + + + | Preferred Language | Unknown | + + + | Marital Status | | + + + | Sikhism Affiliation | Unknown | + + + | Race | Unknown | + + + | Ethnic Group | Unknown | + + + Author + + + | Author | [facility] | | | and [place] | + + + | Organization | [facility] | | [...] [place] | | | | | [address] | | + + + + + | Cyndy Mcneal | ECON | [place] | | | | | [address] | | + + + + + Care Team Providers + +------+ + | Care Software Test Manager Name | Role | Phone | + +------+ + | Caute Simons MD | PCP | | + +------+ + Reason for Visit +--------+--------+ + | Reason | Onset | Comments | | | Date | | +--------+--------+ + | Other | 06/21/ | Letter of recomendation | | | 2014 | | +--------+--------+ + Encounter Details +--------+ + + + + | Date | Type | Department | Care Team | Description | +--------+ + + + + | 06/21/ | Telephone | [facility] | Santino Arroyo | Other (Letter of | | 2014 | | SURGERY [address] | MD Pee, FACS [address] | recomendation) | | | | [facility] | [facility] | | | | | [address] | [place] [address] | | | | | [phone] | [phone] | | | | | | | [...] + + documented as of this encounter Miscellaneous Notes Telephone Encounter - Andreas Cornejo RN - 06/21/2015 1:32 [address] PSTDr. Arroyo stated gilbert t a letter of recommendation is not needed for this patient. He states that they just need t o put in a referral to see Dr. Mahajan in [place] and push all the images to [facility]. I spoke with Manuela at Dr. Simons's office and relayed this message to her. She stated that s he would let everyone know this. elephone Encounter - Lissy Castillo - 06/21/2015 10:[address] Simons's office called stating that they referred the patient for something that Dr. Arroyo felt would need to be referred to Dr. Griffith in [place]. Dr. Arroyo had spoken with Dr. Kishan miranda over the phone and Dr. Arroyo told Dr. Simnos he would write a letter of recommendatio n. Please ask Dr. Arroyo about this. Call Manuela with any questions at [phone] Or fax t he letter to: [phone]. Tdocumented in this encounter Plan of Treatment Not on filedocumented as of this encounter Visit Diagnoses Not on filedocumented in this encounter"
--- OUTSIDE RECORDS SUMMARY | ~2020-01-28 | XMS | Clinical Summary ---
Demographics + + + | Address | [address] | | | [place] [address] | + + + | Home Phone | | + + + | Preferred Language | Unknown | + + + | Marital Status | | + + + | Uatsdin Affiliation | Unknown | + + + | Race | Unknown | + + + | Ethnic Group | Unknown | + + + Author + + + | Author | [facility] | | | and [place] | + + + | Organization | [facility] | | | and [...] [place] | | | | | [address] | | + + + + + | Cyndy Mcneal | ECON | [place] | | | | | [address] | | + + + + + Care Team Providers + +------+ + | Care Dumper Bulk System Name | Role | Phone | + [...] + + Plan of Treatment + + +-------+ + | Health Maintenance | Due Date | Last | Comments | | | | Done | | + + +-------+ + | Vaccine: | | | | | Dtap/Tdap/Td (1 - | 1 | | | | Tdap) | | | | + + +-------+ + | Vaccine: Zoster (1 | | | | | of 2) | 2 | | | + + +-------+ + | Vaccine: | | | | | Pneumococcal 65+ (1 | 7 | | | | of 1 - PPSV23) | | | | + + +-------+ + | Vaccine: Influenza | | | | | (Season Ended) | 0 | | | + + +-------+ + Results Not on filefrom Last 3 [...] +--------+ +---------+--------+ | MEDICARE | MEDICA | [id number] | 04/04/19 | [phone] | | Medica | | | RE | | 97-Pre | 5 | | re | | | PART A | | sent | | | | | | AND B | | | | | | + +--------+ +--------+ +---------+--------+ | [employer] | TRANSA | [id number] | 06/02/ | | | Indemn | [...] Lala Huerta | Person | Self | [birth year] | [address] | | | al/Fam | | 1930 | [phone] [place], | | | [place] | | | [address] (Home) | [place] [address] | + +--------+ +--------+ + + Advance Directives + + + + + | Type | Date Recorded | Patient | 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
--- OUTSIDE RECORDS SUMMARY | ~2020-01-28 | XMS | Encounter Summary ---
Demographics + + + | Address | [address] | | | [place] [address] | + + + | Home Phone | | + + + | Preferred Language | Unknown | + + + | Marital Status | | + + + | Anglican Affiliation | Unknown | + + + | Race | Unknown | + + + | Ethnic Group | Unknown | + + + Author + + + | Author | [facility] | | | and [place] | + + + | Organization | [facility] | | [...] [place] | | | | | [address] | | + + + + + | Cyndy Mcneal | ECON | [place] | | | | | [address] | | + + + + + Care Team Providers + +------+ + | Care Delineator Name | Role | Phone | + +------+ + PCP | Unavailable | + +------+ + Encounter Details +--------+ + + + + | Date | Type | Department | Care Team | Description | +--------+ + + + + | 02/03/ | Hospital | [facility] | | | | 2008 | Encounter | MED CTR XRAY [address] | | | | | | [address] [place] | | | | | | [place] [address] | | | | | | [phone] | | | +--------+ + + + [...]
[~2020-01-28 18:06] MED LIST changes: +PREDNISONE20 MG PO; +TYLENOL WITH C1 EACH PO
[2020-01-28] MEDS ORDERED: TYLENOL325 M1 (18:27)
--- NOTE | 2020-01-29 12:57 | EKG ---
[facility] [address] [facility] [place] [address] Signed Sinus rhythm with frequent premature ventricular complexes Otherwise normal ECG When compared with ECG of 05-MAY-2019 09:24, premature ventricular complexes are now present Confirmed by ALISSA JAIMES MD ([id number]) on 01/29/2020 12:57:49 PM Electronically Signed By: ALISSA JAIMES MD 01/29/20 1257 PATIENT NAME: MARCO A PFEIFFER ANN Electrocardiogram DATE OF : 34 PHYSICIAN: ALISSA JAIMES MD REPORT #: [id number] REPORT IS CONFIDENTIAL AND NOT TO BE RELEASED WITHOUT AUTHORIZATION
== END 2020-01-28 22:08 | disposition home or self-care (01) ==
LOC: ED 18:06
DX: I10 Essential (primary) hypertension (principal); K21.9 Gastro-esophageal reflux disease without esophagitis; F03.90 Unspecified dementia, unspecified severity, without behavioral disturbance, psychotic disturbance, mood disturbance, and anxiety; Z86.73 Personal history of transient ischemic attack (TIA), and cerebral infarction without residual deficits; Z79.01 Long term (current) use of anticoagulants; Z79.899 Other long term (current) drug therapy
CPT/HCPCS: 71045; 80053; 81001; 84484; 85025; 93005; 93010; 96374; 99284-25

== ENCOUNTER 2020-08-19 06:07 | Emergency (ER) | payer MEDICARE, OTHER ==
[~2020-08-19] VITALS: Ht 165.1 cm; Wt 50.8 kg
[~2020-08-19 06:07] MED LIST changes: +TYLENOL325 M1
--- OUTSIDE RECORDS SUMMARY | 2020-08-19 06:10 | XMS ---
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 Joe has no Care Guidelines for this patient. [place] VISIT COUNT (12 MO.) [address] [facility] [address] [facility] TOTAL 3 NOTE: Visits indicate total known visits. ED/C VISIT TRACKING (12 MO.) 08/19/2020 06:[address] [facility] [place] TYPE: Emergency COMPLAINT: - WEAKNESS 07/22/2020 19:22 [facility] [place] TYPE: Emergency COMPLAINT: - FALL, LOWER BACK PAIN DIAGNOSES: - Personal history of transient ischemic attack (TIA), and cerebral infarction without residual deficits - Fall on same level from slipping, tripping and stumbling with subsequent striking against other object, initial encounter - Unspecified injury of head, initial encounter - Gastro-esophageal reflux disease without esophagitis - Pain in thoracic spine - Low back pain - Essential (primary) hypertension - Other senior living (current) drug therapy - Unspecified dementia without behavioral disturbance 01/28/2020 18:07 [facility] [place] TYPE: Emergency COMPLAINT: - HIGH BLOOD PRESSURE DIAGNOSES: - correction (current) use of anticoagulants - Personal history of transient ischemic attack (TIA), and cerebral infarction without residual deficits - Gastro-esophageal reflux disease without esophagitis - Essential (primary) hypertension - Other senior living (current) drug therapy - Unspecified dementia without behavioral disturbance INPATIENT VISIT TRACKING (12 MO.) No inpatient visits to display in this time frame [id number]
--- NOTE | 2020-08-19 10:53 | EKG ---
[facility] [address] [facility] [place] [address] Signed Normal sinus rhythm Normal ECG When compared with ECG of 28-JAN-2020 19:57, premature ventricular complexes are no longer present Nonspecific T wave abnormality now evident in Lateral leads Confirmed by MARGIE ASHER DO ([id number]) on 08/19/2020 10:53:28 AM Electronically Signed By: MARGIE ASHER DO 08/19/20 1053 PATIENT NAME: MARCO A PFEIFFER ANN Electrocardiogram DATE OF : 34 PHYSICIAN: MARGIE ASHER DO REPORT #: [id number] REPORT IS CONFIDENTIAL AND NOT TO BE RELEASED WITHOUT AUTHORIZATION
== END 2020-08-19 09:21 | disposition home or self-care (01) ==
LOC: ED 06:07
DX: E87.6 Hypokalemia (principal); I10 Essential (primary) hypertension; K21.9 Gastro-esophageal reflux disease without esophagitis; Z86.73 Personal history of transient ischemic attack (TIA), and cerebral infarction without residual deficits; Z79.899 Other long term (current) drug therapy; Z20.822 Contact with and (suspected) exposure to COVID-19
CPT/HCPCS: 51701; 71045; 80053; 81001; 83690; 85025; 93005; 93010; 99285-25; C9803; J2405; J7040; U0003

== ENCOUNTER 2020-09-06 07:52 | Emergency (ER) | payer MEDICARE, OTHER ==
[~2020-09-06] VITALS: Ht 165.1 cm; Wt 50.8 kg
--- OUTSIDE RECORDS SUMMARY | 2020-09-06 07:54 | XMS ---
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 Earl VISIT COUNT (12 MO.) 4 [facility] TOTAL 4 NOTE: Visits indicate total known visits. 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 - Unspecified dementia without behavioral disturbance 01/28/2020 18:07 [facility] [place] TYPE: Emergency COMPLAINT: - HIGH BLOOD PRESSURE DIAGNOSES: - snf (current) use of anticoagulants - Personal history of transient ischemic attack (TIA), and cerebral infarction without residual deficits - Gastro-esophageal reflux disease without esophagitis - Essential (primary) hypertension - 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
[2020-09-06] MEDS ORDERED: MORPHINE SULFAT15 MG PO (08:06)
--- NOTE | 2020-09-06 23:53 | EKG ---
[facility] [address] [facility] [place] [address] Signed Normal sinus rhythm Possible Left atrial enlargement Left axis deviation Abnormal ECG When compared with ECG of 19-AUG-2020 06:14, QRS axis shifted left Nonspecific T wave abnormality no longer evident in Lateral leads Confirmed by MORENA REYNOSO MD ([id number]) on 09/06/2020 11:52:46 PM Electronically Signed By: MORENA REYNOSO MD 09/06/20 2353 PATIENT NAME: MARCO A PFEIFFER ANN Electrocardiogram DATE OF : 34 PHYSICIAN: MORENA REYNOSO MD REPORT #: [id number] REPORT IS CONFIDENTIAL AND NOT TO BE RELEASED WITHOUT AUTHORIZATION
== END 2020-09-06 09:33 | disposition home or self-care (01) ==
LOC: ED 07:52
DX: E86.0 Dehydration (principal); R62.7 Adult failure to thrive; I10 Essential (primary) hypertension; K21.9 Gastro-esophageal reflux disease without esophagitis; Z86.73 Personal history of transient ischemic attack (TIA), and cerebral infarction without residual deficits; F03.90 Unspecified dementia, unspecified severity, without behavioral disturbance, psychotic disturbance, mood disturbance, and anxiety; Z79.899 Other long term (current) drug therapy; Z79.891 Long term (current) use of opiate analgesic
CPT/HCPCS: 80053; 81001; 83690; 85025; 93005; 93010; 96374; 99285-25; J2405; J7030